=== PATIENT | female | born 1935 | race Caucasian/White ===

== ENCOUNTER → 2018-08-24 | Outpatient (CLI) | payer BC ==
[~2018-08-24] MED LIST: BUPIVACAINE MPF 0.5% 10 ML VIAL for KCIC. IM ONE; CONTRAST GIVEN. MC PRN; FURO40TA4 PO; IOHEXOL 300 MG/ML 50 ML VIAL. INT ART ONE; LIDOCAINE 1% Multi-Dose 20 ML VIAL. ID ONE; LOSA1TAB25 PO; methylPREDNISolone ACETATE 40 MG/ML VIAL. INT ART ONE
--- NOTE | 2018-08-24 16:15 | KCIC ---
PROCEDURE Therapeutic right hip injection using fluoroscopic guidance. HISTORY Hip pain. TECHNIQUE The procedure was explained to the patient as were potential risks, including infection, bleeding or allergic reaction. All questions were answered. Informed written and verbal consent was obtained. The hip was prepped and draped in the usual sterile manner. Following administration of local anesthetic, a 22-gauge spinal needle was advanced into the hip joint without difficulty, with care taken to avoid the vascular structures. Stylet was removed and following negative aspiration, a mixture of 4 cc Omnipaque-300, 2 cc (80 mg) Depo-Medrol, 4 cc bupivacaine and 4 cc 1% lidocaine were injected without difficulty. Fluoroscopy demonstrates uniform and satisfactory distribution of the injection through the hip. The needle was removed. There was good hemostasis at the injection site. The patient left in stable condition without immediate complication. Patient was advised as to potential postprocedural complications and advised to contact their physician or the emergency room in such event. A single spot image was obtained. Note that the right hip joint communicates with the iliopsoas bursa which opacifies with the injected mixture during injection. FLUOROSCOPY TIME: 15 seconds Electronically signed by: Kashmir Chin MD (08/24/2018 4:11 PM) [facility]
== END | disposition home or self-care (01) ==
LOC: KCIC 14:45
PROVIDERS: ATTEND Orthopaedic Surgery Sports Medicine
DX: M16.0 Bilateral primary osteoarthritis of hip (principal)
CPT/HCPCS: 20610; 77002; J1030; Q9967

== ENCOUNTER → 2018-10-18 | Outpatient (CLI) | payer BC ==
[~2018-10-18] MED LIST changes: +ASPI81TA50 PO; -BUPIVACAINE MPF 0.5% 10 ML VIAL for KCIC. IM ONE; +CALC500T54 PO; +CHOL200074 PO; -CONTRAST GIVEN. MC PRN; +CYAN500T17 PO; +IOHEXOL 180 MG/ML 10 ML VIAL. ONE; -IOHEXOL 300 MG/ML 50 ML VIAL. INT ART ONE; -LIDOCAINE 1% Multi-Dose 20 ML VIAL. ID ONE; +LIDOCAINE/PRILOCAINE TOPICAL CREAM 5GM TUBE. TP ONE; +MELO15TA23 PO; +OMEG1CAP6 PO; +POTA10TA12 PO; +TRAM50TA PO; -methylPREDNISolone ACETATE 40 MG/ML VIAL. INT ART ONE; +methylPREDNISolone ACETATE 40 MG/ML VIAL. ONE; +methylPREDNISolone ACETATE 80 MG/ML VIAL. ONE
--- NOTE | 2018-10-18 19:09 | PAIN ---
DATE OF SERVICE: 10/18/2018 INITIAL CONSULTATION FOR PAIN CLINIC CHIEF COMPLAINT: Low back and right lower extremity pain. HISTORY OF PRESENT ILLNESS: This is an 83-year-old female who presents with history of pain for about a year in the low back and right lower extremity, radiating mostly in the posterior lateral aspect of the thigh across the low back into the anterior medial aspect of the thigh and into the right lower leg. The patient has had some history of arthritis in her hip and thought that this was what which was coming from. So, she had a hip injection with her physician and helped the pain for a very short period of time, but not the pain radiating to the lower leg. The patient reports it is across the low back now as well, intermittent in intensity, changes during the day, aching and sharp, shooting and radiating to the right leg as described. The patient reports no loss of motor function with significant fatigability with right leg with walking and standing. The patient reports it is awakening her from sleep at night at least 2-3 times. Does not affect her bowel or bladder control, but does affect her ability to walk significantly. She is not using any assistive devices, however. She has had some physical therapy in the past, nothing recently, also some massage therapy and chiropractic therapy, which she reports good the day she was there, but not afterwards. She has tried meloxicam as well as tramadol, both of which do decrease the pain, but she takes the meloxicam daily, but the tramadol only when needed. The patient reports she has not had any in the last several days of the tramadol. The patient did have MRI scan of the lumbar spine showing severe degenerative disk disease at L5-S1, bilateral pars interarticularis defect at L5. L4-L5 showed generalized disk bulge, asymmetric to the right along with moderate right facet arthropathy contributing to mild to moderate right-sided neural foraminal stenosis at this level. L3-L4 shows severe degenerative disk disease as well, more profound on the left side with generalized posterior disk osteophyte complex contributing to moderate bilateral neural foraminal stenosis. The L2-L3 shows degenerative disk disease on the left again with moderate neural foraminal stenosis at that level on the left. The patient rates her disability rate from 0-10, 10 being the worst, is a 7 with family and home responsibilities, 6 with recreation, 4 with social activity and occupation, 0 with sexual behavior, 5 with self-care and 3 with life support activities. The patient reports no loss of motor function with significant fatigability of the right lower extremity with walking and ambulation. PAST MEDICAL HISTORY: Significant for hypertension, CPAP for sleep apnea, arthritis. PREVIOUS SURGERY: Include cataract extractions, hysterectomy and cholecystectomy. CURRENT MEDICATIONS: Well documented on the patient's chart. ALLERGIES: The patient has no known drug allergies. FAMILY HISTORY: Significant for heart disease and cancer. SOCIAL HISTORY: The patient does not drink alcohol, does not smoke. Does not use any illegal, illicit or recreational drugs. She is single, lives locally in [place], [place]. Reports that she is currently retired. REVIEW OF SYSTEMS: Positive for those items mentioned in history of present illness. All systems were reviewed, otherwise negative. It is complete, full and well documented on the patient's chart. PHYSICAL EXAMINATION: VITAL SIGNS: The patient's blood pressure is 180/106, pulse 87, respirations 18, temperature 98.0 degrees Fahrenheit, height is 5 feet 3 inches, weight 180 pounds. GENERAL: The patient is awake, alert, oriented, appropriate, very pleasant demeanor. HEENT: Shows normocephalic, atraumatic. Extraocular movements are intact and symmetrical. Oral cavity: Mucous membranes moist and pink. Dentition is intact. NECK: Shows anterior throat supple without palpable lymphadenopathy noted. Swallow reflex is symmetrical. CHEST: Shows normal on inspection. Breath sounds are clear to auscultation bilaterally. HEART: Shows S1, S2 clear. No murmurs auscultated. ABDOMEN: Soft, nontender, nondistended. No palpable organomegaly is noted. No rebound or guarding demonstrated. BACK: Shows spine grossly in the midline. Slight exaggeration of thoracic kyphosis and minor flattening of lumbar lordotic curvature. Lumbar paraspinous muscle shows symmetrical with inspection. On palpation, shows some mild tenderness in the middle and lower distribution of paraspinous muscles, but only diffusely without radiation, without trigger points. No tenderness over the spinous processes, sacrum or sacroiliac regions. The patient has good rotational motion of lumbar spine, both laterally greater than 10 degrees right and left as well as extension greater than 10 degrees, forward flexion 45 degrees without significant pain reported. EXTREMITIES: The patient's lower extremities show deep tendon reflexes at 1+ in the patellar and tendo calcaneus tendons. Motor exam is approximately 4 on a scale of 5 on the right and 5/5 on the left with dorsiflexion, extension, quadriceps and hamstring flexion. The patient does have mild positive straight leg raise on the right at about 45 degrees, decreased with knee flexion. Left side is negative. Peripheral pulses are 1+ posterior tibia. No peripheral edema is noted. Lower extremities are warm and dry to touch, equal in color and appearance. The patient is able to stand, stand on her toes without difficulty or loss of balance, able to heel toe walk for several steps without significant difficulty or loss of balance as well. Again, not using any assistive devices with slightly favoring right lower extremity limp with her gait. SKIN: Warm and dry, good turgor. No edema. No sores, rashes or bruising. IMPRESSION: This is an 83-year-old female with: 1. About one year history of increasing pain in lower back and right lower extremity in a radicular fashion. 2. MRI scan of lumbar spine as noted. 3. Hypertension. 4. Arthritis. PLAN: Options were discussed with the patient including conservative medical management, physical therapy, and interventional technique. He elected to proceed with interventional techniques. We discussed a lumbar epidural steroid injection using description as well as anatomic models to describe the procedure. Risks were then discussed including, but not limited to bleeding, infection, possibility of epidural hematoma, subsequent neurologic compromise, dural puncture, headaches, spinal cord and/or nerve damage, side effects of steroid medication and poor results regarding pain control. The patient understands and wished to proceed. The patient will return to the clinic in approximately 2 weeks for followup, was counseled on return appointment, activity level, and side effects to be aware of. DIAGNOSES: Lumbar radiculopathy with lumbar spinal stenosis, lumbar degenerative disk disease. PROCEDURE: Lumbar epidural steroid injection translaminar approach at L4-L5 level using C-arm fluoroscopic guidance under sterile prep and drape using local anesthetic. MEDICATION INJECTED: A total of 120 mg Depo-Medrol plus 10 mL of preservative-free normal saline and 2 mL of Isovue for contrast. CONDITION AT DISCHARGE: Stable. The patient tolerated the procedure well, had no complications. SIERRA SALMON MD DR: CHASE/ruiz JOB#: [id number] / [id number] YOUSIF Tesfaye MD
== END | disposition home or self-care (01) ==
LOC: PNCL 09:29
PROVIDERS: ATTEND Anesthesiology
DX: M51.16 Intervertebral disc disorders with radiculopathy, lumbar region (principal); M48.061 Spinal stenosis, lumbar region without neurogenic claudication; M16.0 Bilateral primary osteoarthritis of hip; I10 Essential (primary) hypertension; Z90.710 Acquired absence of both cervix and uterus; Z90.49 Acquired absence of other specified parts of digestive tract; Z79.82 Long term (current) use of aspirin; Z79.899 Other long term (current) drug therapy
CPT/HCPCS: 62323; J1030; J1040; Q9965

== ENCOUNTER → 2018-11-08 | Outpatient (CLI) | payer BC ==
[~2018-11-08] MED LIST changes: -LIDOCAINE/PRILOCAINE TOPICAL CREAM 5GM TUBE. TP ONE
--- NOTE | 2018-11-08 11:10 | PAIN ---
DATE OF SERVICE: 11/08/2018 PROGRESS NOTE FOR PAIN CLINIC DIAGNOSES: Lumbar radiculopathy with lumbar degenerative disk disease and lumbar spinal stenosis. HISTORY OF PRESENT ILLNESS: The patient is an 83-year-old female who returns for followup status post lumbar epidural steroid injection x 1. The patient reports about 70% improvement, did very well with her right leg, doing much better. The patient still has pain across the low back, a little more on the right side but the leg is doing much better. The patient reports aching pain in the low back that is tight and shooting at times, some in the right posterior gluteus, lateral thigh but mostly in the back. The patient reports it is a 4 on a scale of 10 at its worst, 3 on average, 3 at its least on a scale of 10 and is 3 today. The patient reports she has been sleeping well at night, has been increasing activity with greater ease and comfort, walking greater distances, able to do household activities as well as traveling and recreational activities with much greater ease and comfort. The patient reports the pain has been building up over the past few days where she is feeling it more noticeably in the low back itself but not nearly to the level it was previously. The patient reports no new motor or sensory deficits and no new bowel or bladder incontinence or other complaints. PHYSICAL EXAMINATION: VITAL SIGNS: The patient's blood pressure is 186/112, pulse 87, respirations 18 and temperature is 98.2 degrees Fahrenheit. Height is 5 feet 3 inches and weighs 183 pounds. GENERAL: The patient is awake, alert, oriented, appropriate and very pleasant demeanor. HEENT: Head shows normocephalic and atraumatic. Extraocular movements are intact and symmetrical. Oral cavity: Mucous membranes moist and pink. Dentition is intact. NECK: Shows anterior throat supple without palpable lymphadenopathy noted. Swallow reflex is symmetrical. CHEST: Shows normal with inspection. Breath sounds clear to auscultation bilaterally. HEART: Shows S1 and S2 clear. No murmurs auscultated. ABDOMEN: Obese, soft, nontender and nondistended. No palpable organomegaly is noted. No rebound or guarding demonstrated. BACK: Shows spine grossly in the midline. Slight exaggeration of the thoracic kyphosis and some minor flattening of the lumbar lordotic curvature. Lumbar paraspinous muscle shows symmetrical on inspection, on palpation shows some moderate tenderness diffusely bilaterally but only diffusely without radiation. The patient has good rotational motion of the lumbar spine, both laterally as well as extension and flexion without difficulty. EXTREMITIES: Lower extremities show deep tendon reflexes at 1+ in the patellar and tendo-calcaneus tendons. Motor exam is approximately 4 on a scale of 5 with right dorsiflexion and extension, 5/5 on the left but intact bilaterally. Peripheral pulses are 1+ posterior tibial. No peripheral edema is noted. Options were discussed with the patient. The patient's old chart was reviewed as well as her current medication regimen updated. Current review of systems updated today as well. We will proceed with a second in a series of lumbar epidural steroid injection today with fluoroscopic guidance. Risks were again discussed including, but not limited to bleeding, infection, possibility of epidural hematoma, subsequent neurologic compromise, dural puncture, headaches, spinal cord and/or nerve damage, side effects of steroid medication and poor results regarding pain control. The patient understands and wished to proceed. The patient will return to the clinic in approximately 2 weeks for followup, was counseled as to return appointment, activity level and side effects to be aware of. DIAGNOSES: Lumbar radiculopathy with lumbar spinal stenosis and lumbar degenerative disk disease. PROCEDURE: Lumbar epidural steroid injection, translaminar approach, L4-L5 level using C-arm fluoroscopic guidance under sterile prep and drape using local anesthetic. MEDICATION INJECTED: A total of 120 mg Depo-Medrol plus 10 mL of preservative-free normal saline and 2 mL of Isovue for contrast. CONDITION AT DISCHARGE: Stable. The patient tolerated the procedure well and had no complications. SIERRA SALMON MD DR: CHASE/ruiz JOB#: [id number] / [id number]
== END | disposition home or self-care (01) ==
LOC: PNCL 09:52
PROVIDERS: ATTEND Anesthesiology
DX: M51.16 Intervertebral disc disorders with radiculopathy, lumbar region (principal); M48.061 Spinal stenosis, lumbar region without neurogenic claudication
CPT/HCPCS: 62323; J1030; J1040; Q9965

== ENCOUNTER → 2019-01-18 | Outpatient (CLI) | payer BC, OTHER ==
[~2019-01-18] MED LIST changes: +BUPIVACAINE MPF 0.5% 10 ML VIAL for KCIC. IM ONE; -IOHEXOL 180 MG/ML 10 ML VIAL. ONE; +IOHEXOL 300 MG/ML 50 ML VIAL. INT ART ONE; +LIDOCAINE 1% Multi-Dose 20 ML VIAL. ID ONE; +methylPREDNISolone ACETATE 40 MG/ML VIAL. INT ART ONE; -methylPREDNISolone ACETATE 40 MG/ML VIAL. ONE; -methylPREDNISolone ACETATE 80 MG/ML VIAL. ONE
--- NOTE | 2019-01-18 15:47 | KCIC ---
Examination: Fluoro Guided Therapeutic injection bilateral hip. History: Bilateral hip pain Comparison: None available FINDINGS: Relative benefits risks and alternatives to the procedure were discussed and verbal and written informed consent was obtained. The patient was carefully prepped and draped in a sterile fashion. Lidocaine was used for local anesthesia. A 22-gauge spinal needle was advanced to the level of the hip joint at the femoral neck. 4 cc of bupivacaine, 4 cc of Omnipaque 300, 4 cc of lidocaine and 80 mg of Depo-Medrol was given into each of the right and left hip joints. Total fluoroscopic time in the right hip is 14 seconds and on the left hip is 19 seconds Total fluoroscopic image is 2. IMPRESSION: Successful fluoroscopic guided steroid injection into the right and left hip joint. Electronically signed by: Maxime Solorio MD (01/18/2019 3:44 PM) [facility]
== END | disposition home or self-care (01) ==
LOC: KCIC 13:20
PROVIDERS: ATTEND Orthopaedic Surgery Sports Medicine
DX: M16.0 Bilateral primary osteoarthritis of hip (principal); M51.16 Intervertebral disc disorders with radiculopathy, lumbar region; I10 Essential (primary) hypertension; Z79.82 Long term (current) use of aspirin
CPT/HCPCS: 20610; 77002; J1030; Q9967; 20605

== ENCOUNTER 2019-08-19 19:22 | Inpatient (IN) | payer MEDICARE, OTHER ==
[~2019-08-19] VITALS: Ht 157.5 cm; Wt 82.6 kg
[~2019-08-19 19:22] MED LIST changes: -BUPIVACAINE MPF 0.5% 10 ML VIAL for KCIC. IM ONE; -IOHEXOL 300 MG/ML 50 ML VIAL. INT ART ONE; -LIDOCAINE 1% Multi-Dose 20 ML VIAL. ID ONE; -methylPREDNISolone ACETATE 40 MG/ML VIAL. INT ART ONE
[2019-08-19 20:14] LABS: BASO % 1 % (0-3); EOS # 0.2 x10^3/uL (0.0-0.7); EOS % 2 % (0-3); HEMATOCRIT 38.3 % (36.0-47.0); HEMOGLOBIN 12.8 g/dL (12.0-15.5); LYMPH # 2.4 x10^3/uL (1.0-4.8); LYMPH % 29 % (24-48); MEAN CORPUSCULAR HEMOGLOBIN 30 pg (25-35); MEAN CORPUSCULAR HGB CONC 33 g/dL (31-37); MEAN CORPUSCULAR VOLUME 89 fL (79-100); MONO # 0.6 x10^3/uL (0.0-1.1); MONO % 7 % (0-9); NEUT # 5.1 x10^3/uL (1.8-7.7); NEUT % 62 % (31-73); PLATELET COUNT 337 x10^3/uL (140-400); RED CELL DISTRIBUTION WIDTH 14.9 % (11.5-14.5); WHITE BLOOD COUNT 8.4 x10^3/uL (4.0-11.0)
[2019-08-19 20:16] LABS: CALCIUM 9.7 mg/dL (8.5-10.1); CREATININE 0.9 mg/dL (0.6-1.0); GFR 59.5; POTASSIUM 3.8 mmol/L (3.5-5.1)
[2019-08-19 20:21] LABS: PROTHROMBIN TIME PATIENT 13.2 SEC (11.7-14.0)
[2019-08-19 20:22] LABS: ALBUMIN 3.8 g/dL (3.4-5.0); ALBUMIN/GLOBULIN RATIO 1.1 (1.0-1.7); TOTAL BILIRUBIN 0.3 mg/dL (0.2-1.0); TOTAL PROTEIN 7.3 g/dL (6.4-8.2)
[2019-08-19 20:49] LABS: BILIRUBIN,URINE NEGATIVE (NEG); CLARITY,URINE CLEAR; COLOR,URINE YELLOW; NITRITE,URINE NEGATIVE (NEG); PROTEIN,URINE NEGATIVE (NEG-TRACE); UROBILINOGEN,URINE 0.2 mg/dL (0.2 mg/dL)
[2019-08-19 20:54] LABS: BACTERIA,URINE MODERATE /HPF (0-FEW); RBC,URINE OCC /HPF (0-2); SQUAMOUS EPITHELIAL CELL,UR MOD /LPF; WBC,URINE TNTC /HPF (0-4)
[2019-08-19] MEDS ORDERED: ONDANSETRON PF 4 MG/2 ML VIAL. IV PRN ×2 (21:15→23:00)
[2019-08-19] MEDS ORDERED: ACETAMINOPHEN 325 MG TABLET. PO PRN ×2 (21:15→23:00)
--- NOTE | 2019-08-19 21:15 | PHYS DOC ---
Past Medical History Past Medical History: Arthritis, Hypertension Past Surgical History: Hysterectomy, Other Additional Past Surgical Histo: PROLAPSED BOWEL Alcohol Use: None Drug Use: None Adult General Chief Complaint Chief Complaint: BLOODY STOOL HPI HPI 84-year-old female who is in relatively good health presents with rectal bleeding tonight. She states at approximately 7 PM she felt like she needed to have a diarrhea stool and when she went to the bathroom she poured a large amount of bright red blood into the commode. She has had rectal prolapse surgery in the past. She denies any pain. She denies he fever chills or sweats. She denies any dysuria or gross hematuria. She has not had any nausea or vomiting.[] Review of Systems Review of Systems Constitutional: Denies fever or chills [] Eyes: Denies change in visual acuity, redness, or eye pain [] HENT: Denies nasal congestion or sore throat [] Respiratory: Denies cough or shortness of breath [] Cardiovascular: No additional information not addressed in HPI [] GI: Per history of present illness[] : Denies dysuria or hematuria [] Musculoskeletal: Denies back pain or joint pain [] Integument: Denies rash or skin lesions [] Neurologic: Denies headache, focal weakness or sensory changes [] Endocrine: Denies polyuria or polydipsia [] All other systems were reviewed and found to be within normal limits, except as documented in this note. Current Medications Current Medications Current Medications Medications (Trade) Dose Ordered Sig/Bertha Start Time Stop Time Status Last Admin Dose Admin Acetaminophen (Tylenol) 650 mg PRN Q4HRS PRN 08/19/19 21:15 08/20/19 21:14 UNV Ceftriaxone Sodium (Rocephin) 1 gm 1X ONCE 08/19/19 21:30 08/19/19 21:31 Ondansetron HCl (Zofran) 4 mg PRN Q8HRS PRN 08/19/19 21:15 08/20/19 21:14 UNV Sodium Chloride 1,000 ml @ 125 mls/hr Q8H 08/19/19 21:08 08/20/19 21:07 UNV Allergies Allergies Allergies Coded Allergies Type Severity Reaction Last Updated Verified No Known Drug Allergies 08/24/18 No Physical Exam Physical Exam Constitutional: Well developed, well nourished, no acute distress, non-toxic appearance. [] HENT: Normocephalic, atraumatic, bilateral external ears normal, oropharynx moist, no oral exudates, nose normal. [] Eyes: PERRLA, EOMI, conjunctiva normal, no discharge. [] Neck: Normal range of motion, no tenderness, supple, no stridor. [] Cardiovascular:Heart rate regular rhythm, no murmur [] Lungs & Thorax: Bilateral breath sounds clear to auscultation [] Abdomen: Bowel sounds normal, soft, no tenderness, no masses, no pulsatile masses. [] Rectal: She does have an external hemorrhoid that appears to be oozing blood however she does have bright red blood in her rectal vault as well Skin: Warm, dry, no erythema, no rash. [] Back: No tenderness, no CVA tenderness. [] Extremities: No tenderness, no cyanosis, no clubbing, ROM intact, no edema. [] Neurologic: Alert and oriented X 3, normal motor function, normal sensory function, no focal deficits noted. [] Psychologic: Anxious. [] Current Patient Data Vital Signs Vital Signs Date Time Temp Pulse Resp B/P (MAP) Pulse Ox O2 Delivery O2 Flow Rate FiO2 08/19/19 19:25 98.0 112 24 216/98 (137) 96 Room Air 98.0 Lab Values Laboratory Tests Test 08/19/19 19:50 08/19/19 20:40 White Blood Count 8.4 x10^3/uL (4.0-11.0) Red Blood Count 4.30 x10^6/uL (3.50-5.40) Hemoglobin 12.8 g/dL (12.0-15.5) Hematocrit 38.3 % (36.0-47.0) Mean Corpuscular Volume 89 fL (79-100) Mean Corpuscular Hemoglobin 30 pg (25-35) Mean Corpuscular Hemoglobin Concent 33 g/dL (31-37) Red Cell Distribution Width 14.9 % (11.5-14.5) H Platelet Count 337 x10^3/uL (140-400) Neutrophils (%) (Auto) 62 % (31-73) Lymphocytes (%) (Auto) 29 % (24-48) Monocytes (%) (Auto) 7 % (0-9) Eosinophils (%) (Auto) 2 % (0-3) Basophils (%) (Auto) 1 % (0-3) Neutrophils # (Auto) 5.1 x10^3/uL (1.8-7.7) Lymphocytes # (Auto) 2.4 x10^3/uL (1.0-4.8) Monocytes # (Auto) 0.6 x10^3/uL (0.0-1.1) Eosinophils # (Auto) 0.2 x10^3/uL (0.0-0.7) Basophils # (Auto) 0.0 x10^3/uL (0.0-0.2) Prothrombin Time 13.2 SEC (11.7-14.0) Prothrombin Time INR 1.0 (0.8-1.1) Sodium Level 144 mmol/L (136-145) Potassium Level 3.8 mmol/L (3.5-5.1) Chloride Level 107 mmol/L (98-107) Carbon Dioxide Level 26 mmol/L (21-32) Anion Gap 11 (6-14) Blood Urea Nitrogen 20 mg/dL (7-20) Creatinine 0.9 mg/dL (0.6-1.0) Estimated GFR (Cockcroft-Gault) 59.5 BUN/Creatinine Ratio 22 (6-20) H Glucose Level 125 mg/dL (70-99) H Calcium Level 9.7 mg/dL (8.5-10.1) Total Bilirubin 0.3 mg/dL (0.2-1.0) Aspartate Amino Transferase (AST) 14 U/L (15-37) L Alanine Aminotransferase (ALT) 18 U/L (14-59) Alkaline Phosphatase 94 U/L (46-116) Total Protein 7.3 g/dL (6.4-8.2) Albumin 3.8 g/dL (3.4-5.0) Albumin/Globulin Ratio 1.1 (1.0-1.7) Urine Collection Type Void Urine Color Yellow Urine Clarity Clear Urine pH 6.0 Urine Specific [place] 1.020 Urine Protein Negative mg/dL (NEG-TRACE) Urine Glucose (UA) Negative mg/dL (NEG) Urine Ketones (Stick) Negative mg/dL (NEG) Urine Blood Small (NEG) Urine Nitrite Negative (NEG) Urine Bilirubin Negative (NEG) Urine Urobilinogen Dipstick 0.2 mg/dL (0.2 mg/dL) Urine Leukocyte Esterase Large (NEG) Urine RBC Occ /HPF (0-2) Urine WBC Tntc /HPF (0-4) Urine Squamous Epithelial Cells Mod /LPF Urine Transitional Epithelial Cells Occ /LPF Urine Renal Epithelial Cells Occ /LPF Urine Bacteria Moderate /HPF (0-FEW) Urine Mucus Mod /LPF Laboratory Tests 08/19/19 19:50 Laboratory Tests 08/19/19 19:50 EKG EKG [] Radiology/Procedures Radiology/Procedures [] Course & Med Decision Making Course & Med Decision Making Pertinent Labs and Imaging studies reviewed. (See chart for details) [ED course: Evaluation reveals an 84-year-old female with rectal bleeding any urinary tract infection. Given the large volume of blood in her rectal vault and her reported large volume of bleeding at home I feel it prudent to keep her in the hospital overnight for observation. Her hemoglobin and hematocrit were within normal limits here. I will go ahead and treat her urinary tract infection with IV Rocephin.] Dragon Disclaimer Dragon Disclaimer This electronic medical record was generated, in whole or in part, using a voice recognition dictation system. Departure Departure Impression: Primary Impression: Rectal bleeding Additional Impression: Urinary tract infection Disposition: ADMITTED INPATIENT Admitting Physician: WAQAS Condition: STABLE Referrals: YOUSIF BERMAN MD (PCP) Problem Qualifiers Additional Impression: Urinary tract infection Urinary tract infection type: acute cystitis Hematuria presence: without hematuria Qualified Codes: N30.00 - Acute cystitis without hematuria PROMISE LEBLANC DO Aug 19, 2019 21:15
[2019-08-19] MEDS ORDERED: cefTRIAXone IV Push 1 GM VIAL. IVP ONE (21:30)
[2019-08-19 22:30] VITALS: BP 150/82
--- NOTE | 2019-08-19 22:57 | PDOC1 ---
History and Physical Date of Admission Date of Admission DATE: 08/19/19 TIME: 22:47 Identification/Chief Complaint Chief Complaint Bright red blood per rectum Source Source: Patient History of Present Illness History of Present Illness Ms Pineda is an 84yo F w/ PMHx Osteoarthritis, Hypertension and prior rectal prolapse who p/w rectal bleeding tonight to the ED. She had an urgent BM urge at 7 PM she felt like she needed to have a diarrhea stool and when she went to the bathroom she felt a large amount of bright red blood in the toilet. She had two additional bowel movements, 1 bright red blood, and another dark tarry stool with bright red blood on wiping. ED physician noted an external hemorrhoid which I have observed as well. She denies any pain. She denies he fever chills or sweats. She denies any dysuria or gross hematuria, but does have urinary urgency. She has not had any nausea or vomiting. Historically, she has had a rectal prolapse surgery and has rare fecal incontinence and stool urgency. Hb was 12.8, mildly tachycardic. Urine with positive blood and leukocyte esterase. Was given rocephin and IVF in ED and called for admission for further workup and treatment of lower GI bleeding. Past Medical History Cardiovascular: HTN Pulmonary: No pertinent hx GI: No pertinent hx Heme/Onc: No pertinent hx Hepatobiliary: No pertinent hx Psych: No pertinent hx Rheumatologic: Other (Osteoarthritis) Infectious disease: No pertinent hx ENT: No pertinent hx Renal/: No pertinent hx Endocrine: No pertinent hx Dermatology: No pertinent hx Past Surgical History Past Surgical History: Hysterectomy, Other (Rectal prolapse surgery) Family History Family History: Hypertension Social History Smoke: No ALCOHOL: none Drugs: None Current Problem List Problem List Problems Medical Problems: (1) Rectal bleeding Status: Acute (2) Urinary tract infection Status: Acute Current Medications Current Medications Current Medications Ceftriaxone Sodium (Rocephin) 1 gm 1X ONCE IVP Last administered on 08/19/19at 21:53; Start 08/19/19 at 21:30; Stop 08/19/19 at 21:31; Status DC Ondansetron HCl (Zofran) 4 mg PRN Q8HRS PRN IV NAUSEA/VOMITING 1ST CHOICE; Start 08/19/19 at 21:15; Stop 08/20/19 at 21:14 Sodium Chloride 1,000 ml @ 125 mls/hr Q8H IV ; Start 08/19/19 at 21:30; Stop 08/20/19 at 21:29 Acetaminophen (Tylenol) 650 mg PRN Q4HRS PRN PO FEVER; Start 08/19/19 at 21:15; Stop 08/20/19 at 21:14 Fish Oil (Fish Oil) 1,000 mg DAILY PO ; Start 08/20/19 at 09:00; Status UNV Potassium Chloride (Klor-Con) 10 meq DAILY PO ; Start 08/20/19 at 09:00; Status UNV Tramadol HCl (Ultram) 50 mg Q6HRS PRN PO PAIN; Start 08/19/19 at 22:45; Status UNV Non-Formulary Medication (Calcium Carbonate (Calcium)) 500 mg DAILY PO ; Start 08/20/19 at 09:00; Status UNV Non-Formulary Medication (Cholecalciferol (Vitamin D3) (Vitamin D-3)) 2,000 unit DAILY PO ; Start 08/20/19 at 09:00; Status UNV Non-Formulary Medication (Cyanocobalamin (Vitamin B-12) (B-12)) 500 mcg DAILY PO ; Start 08/20/19 at 09:00; Status UNV Non-Formulary Medication (Losartan/ Hydrochlorothiazide (Losartan-Hctz 100-12.5 Mg Tab)) 1 tab DAILY PO ; Start 08/20/19 at 09:00; Status UNV Active Scripts Active Reported Fish Oil 1,000 Mg Capsule ([place]-3 Fatty Acids/Fish Oil) 1 Each Capsule 1 Each PO DAILY Calcium (Calcium Carbonate) 500 Mg Tab.chew 500 Mg PO DAILY Vitamin D-3 (Cholecalciferol (Vitamin D3)) 2,000 Unit Capsule 2,000 Unit PO DAILY B-12 (Cyanocobalamin (Vitamin B-12)) 500 Mcg Tablet 500 Mcg PO DAILY Tramadol Hcl 50 Mg Tablet 50 Mg PO Q6HRS PRN Meloxicam 15 Mg Tablet 1 Tab PO DAILY Aspir-Low (Aspirin) 81 Mg Tablet.dr 1 Tab PO DAILY Potassium Chloride 10 Meq Tab.sr.24h 10 Meq PO DAILY Furosemide 40 Mg Tablet 1 Tab PO DAILY Losartan-Hctz 100-12.5 Mg Tab (Losartan/Hydrochlorothiazide) 1 Each Tablet 1 Tab PO DAILY Allergies Allergies: Coded Allergies: No Known Drug Allergies (Unverified , 08/24/18) ROS General: No: Chills, Night Sweats, Fatigue, Malaise, Appetite, Other PSYCHOLOGICAL ROS: No: Anxiety, Behavioral Disorder, Concentration difficultie, Decreased libido, Depression, Disorientation, Hallucinations, Hostility, Irritablity, Memory difficulties, Mood Swings, Obsessive thoughts, Physical abuse, Sexual abuse, Sleep disturbances, Suicidal ideation, Other Eyes: No Blurry vision, No Decreased vision, No Double vision, No Dry eyes, No Excessive tearing, No Eye Pain, No Itchy Eyes, No Loss of vision, No Photophobia, No Scotomata, No Uses contacts, No Uses glasses, No Other HEENT: No: Heacaches, Visual Changes, Hearing change, Nasal congestion, Nasal discharge, Oral lesions, Sinus pain, Sore Throat, Epistaxis, Sneezing, Snoring, Tinnitus, Vertigo, Vocal changes, Other ALLERGY AND IMMUNOLOGY: No: Hives, Insect Bite Sensitivity, Itchy/Watery Eyes, Nasal Congestion, Post Nasal Drip, Seasonal Allergies, Other Hematological and Lymphatic: No: Bleeding Problems, Blood Clots, Blood Transfusions, Brusing, Night Sweats, Pallor, Swollen Lymph Nodes, Other ENDOCRINE: No: Breast Changes, Galactorrhea, Hair Pattern Changes, Hot Flashes, Malaise/lethargy, Mood Swings, Palpitations, Polydipsia/polyuria, Skin Changes, Temperature Intolerance, Unexpected Weight Changes, Other Breast: No New/Changing Breast Lumps, No Nipple changes, No Nipple discharge, No Other Respiratory: No: Cough, Hemoptysis, Orthopnea, Pleuritic Pain, Shortness of breath, SOB with excertion, Sputum Changes, Stridor, Tachypnea, Wheezing, Other Cardiovascular: No Chest Pain, No Palpitations, No Orthopnea, No Paroxysmal Noc. Dyspnea, No Edema, No Lt Headedness, No Other Gastrointestinal: Yes Diarrhea, Yes Melena, Yes Hematochezia; No Nausea, No Vomiting, No Abdominal Pain, No Constipation, No Other Genitourinary: YES Dysuria; No Frequency, No Incontinence, No Hematuria, No Retention, No Discharge, No Urgency, No Pain, No Flank Pain, No Other, No , No , No , No , No , No , No Musculoskeletal: No Gait Disturbance, No Joint Pain, No Joint Stiffness, No Darling nt Swelling, No Muscle Pain, No Muscular Weakness, No Pain In:, No Swelling In:, No Other Neurological: No Behavorial Changes, No Bowel/Bladder ControlChng, No Confusion, No Dizziness, No Gait Disturbance, No Headaches, No Impaired Co ord/balance, No Memory Loss, No Numbness/Tingling, No Seizures, No Speech Problems, No Tremors, No Visual Changes, No Weakness, No Other Skin: No Dry Skin, No Eczema, No Hair Changes, No Lumps, No Mole Changes, No Mottling, No Nail Changes, No Pruritus, No Rash, No Skin Lesion Changes, No Other, No Acne Physical Exam General: Alert, Oriented X3, Cooperative, No acute distress HEENT: Atraumatic, PERRLA, EOMI, Mucous membr. moist/pink Lungs: Clear to auscultation, Normal air movement Heart: S1S2, RRR, no gallops, no murmurs Abdomen: Normal bowel sounds, Soft, No tenderness, No hepatosplenomegaly, No masses Rectal Exam: hemorrhoids Extremities: No clubbing, No cyanosis, No edema, Normal pulses, No tend erness/swelling Skin: No rashes, No breakdown, No significant lesion Neuro: Normal gait, Normal speech, Strength at 5/5 X4 ext, Normal tone, Sensation intact, Cranial nerves 3-12 NL, Reflexes 2+ Psych/Mental Status: Mental status NL, Mood NL Vitals Vitals Vital Signs Date Time Temp Pulse Resp B/P (MAP) Pulse Ox O2 Delivery O2 Flow Rate FiO2 08/19/19 21:41 90 24 162/105 (124) 98 Room Air 08/19/19 19:25 98.0 98.0 Labs Labs Laboratory Tests Test 08/19/19 19:50 08/19/19 20:40 White Blood Count 8.4 x10^3/uL (4.0-11.0) Red Blood Count 4.30 x10^6/uL (3.50-5.40) Hemoglobin 12.8 g/dL (12.0-15.5) Hematocrit 38.3 % (36.0-47.0) Mean Corpuscular Volume 89 fL (79-100) Mean Corpuscular Hemoglobin 30 pg (25-35) Mean Corpuscular Hemoglobin Concent 33 g/dL (31-37) Red Cell Distribution Width 14.9 % (11.5-14.5) Platelet Count 337 x10^3/uL (140-400) Neutrophils (%) (Auto) 62 % (31-73) Lymphocytes (%) (Auto) 29 % (24-48) Monocytes (%) (Auto) 7 % (0-9) Eosinophils (%) (Auto) 2 % (0-3) Basophils (%) (Auto) 1 % (0-3) Neutrophils # (Auto) 5.1 x10^3/uL (1.8-7.7) Lymphocytes # (Auto) 2.4 x10^3/uL (1.0-4.8) Monocytes # (Auto) 0.6 x10^3/uL (0.0-1.1) Eosinophils # (Auto) 0.2 x10^3/uL (0.0-0.7) Basophils # (Auto) 0.0 x10^3/uL (0.0-0.2) Prothrombin Time 13.2 SEC (11.7-14.0) Prothromb Time International Ratio 1.0 (0.8-1.1) Sodium Level 144 mmol/L (136-145) Potassium Level 3.8 mmol/L (3.5-5.1) Chloride Level 107 mmol/L (98-107) Carbon Dioxide Level 26 mmol/L (21-32) Anion Gap 11 (6-14) Blood Urea Nitrogen 20 mg/dL (7-20) Creatinine 0.9 mg/dL (0.6-1.0) Estimated GFR (Cockcroft-Gault) 59.5 BUN/Creatinine Ratio 22 (6-20) Glucose Level 125 mg/dL (70-99) Calcium Level 9.7 mg/dL (8.5-10.1) Total Bilirubin 0.3 mg/dL (0.2-1.0) Aspartate Amino Transf (AST/SGOT) 14 U/L (15-37) Alanine Aminotransferase (ALT/SGPT) 18 U/L (14-59) Alkaline Phosphatase 94 U/L (46-116) Total Protein 7.3 g/dL (6.4-8.2) Albumin 3.8 g/dL (3.4-5.0) Albumin/Globulin Ratio 1.1 (1.0-1.7) Urine Collection Type Void Urine Color Yellow Urine Clarity Clear Urine pH 6.0 Urine Specific [place] 1.020 Urine Protein Negative mg/dL (NEG-TRACE) Urine Glucose (UA) Negative mg/dL (NEG) Urine Ketones (Stick) Negative mg/dL (NEG) Urine Blood Small (NEG) Urine Nitrite Negative (NEG) Urine Bilirubin Negative (NEG) Urine Urobilinogen Dipstick 0.2 mg/dL (0.2 mg/dL) Urine Leukocyte Esterase Large (NEG) Urine RBC Occ /HPF (0-2) Urine WBC Tntc /HPF (0-4) Urine Squamous Epithelial Cells Mod /LPF Urine Transitional Epithelial Cells Occ /LPF Urine Renal Epithelial Cells Occ /LPF Urine Bacteria Moderate /HPF (0-FEW) Urine Mucus Mod /LPF Laboratory Tests Test 08/19/19 19:50 08/19/19 20:40 White Blood Count 8.4 x10^3/uL (4.0-11.0) Red Blood Count 4.30 x10^6/uL (3.50-5.40) Hemoglobin 12.8 g/dL (12.0-15.5) Hematocrit 38.3 % (36.0-47.0) Mean Corpuscular Volume 89 fL (79-100) Mean Corpuscular Hemoglobin 30 pg (25-35) Mean Corpuscular Hemoglobin Concent 33 g/dL (31-37) Red Cell Distribution Width 14.9 % (11.5-14.5) Platelet Count 337 x10^3/uL (140-400) Neutrophils (%) (Auto) 62 % (31-73) Lymphocytes (%) (Auto) 29 % (24-48) Monocytes (%) (Auto) 7 % (0-9) Eosinophils (%) (Auto) 2 % (0-3) Basophils (%) (Auto) 1 % (0-3) Neutrophils # (Auto) 5.1 x10^3/uL (1.8-7.7) Lymphocytes # (Auto) 2.4 x10^3/uL (1.0-4.8) Monocytes # (Auto) 0.6 x10^3/uL (0.0-1.1) Eosinophils # (Auto) 0.2 x10^3/uL (0.0-0.7) Basophils # (Auto) 0.0 x10^3/uL (0.0-0.2) Prothrombin Time 13.2 SEC (11.7-14.0) Prothromb Time International Ratio 1.0 (0.8-1.1) Sodium Level 144 mmol/L (136-145) Potassium Level 3.8 mmol/L (3.5-5.1) Chloride Level 107 mmol/L (98-107) Carbon Dioxide Level 26 mmol/L (21-32) Anion Gap 11 (6-14) Blood Urea Nitrogen 20 mg/dL (7-20) Creatinine 0.9 mg/dL (0.6-1.0) Estimated GFR (Cockcroft-Gault) 59.5 BUN/Creatinine Ratio 22 (6-20) Glucose Level 125 mg/dL (70-99) Calcium Level 9.7 mg/dL (8.5-10.1) Total Bilirubin 0.3 mg/dL (0.2-1.0) Aspartate Amino Transf (AST/SGOT) 14 U/L (15-37) Alanine Aminotransferase (ALT/SGPT) 18 U/L (14-59) Alkaline Phosphatase 94 U/L (46-116) Total Protein 7.3 g/dL (6.4-8.2) Albumin 3.8 g/dL (3.4-5.0) Albumin/Globulin Ratio 1.1 (1.0-1.7) Urine Collection Type Void Urine Color Yellow Urine Clarity Clear Urine pH 6.0 Urine Specific [place] 1.020 Urine Protein Negative mg/dL (NEG-TRACE) Urine Glucose (UA) Negative mg/dL (NEG) Urine Ketones (Stick) Negative mg/dL (NEG) Urine Blood Small (NEG) Urine Nitrite Negative (NEG) Urine Bilirubin Negative (NEG) Urine Urobilinogen Dipstick 0.2 mg/dL (0.2 mg/dL) Urine Leukocyte Esterase Large (NEG) Urine RBC Occ /HPF (0-2) Urine WBC Tntc /HPF (0-4) Urine Squamous Epithelial Cells Mod /LPF Urine Transitional Epithelial Cells Occ /LPF Urine Renal Epithelial Cells Occ /LPF Urine Bacteria Moderate /HPF (0-FEW) Urine Mucus Mod /LPF VTE Prophylaxis Ordered VTE Prophylaxis Devices: Yes VTE Pharmacological Prophylaxi: Contraindicated Assessment/Plan Assessment/Plan A/P: Bright red blood per rectum - painless, could be diverticular bleed vs hemorrhoids. She cannot recall last colonoscopy. NPO after midnight, consult GI and general surgery Urinary frequency - with positive leukocyte esterase she may well have a UTI, empiric rocephin HTN - will cont meds Osteoarthritis - will hold ASA and NSAIDs with her acute bleeding. Tylenol ok H/o Hysterectomy, PROLAPSED rectum surgery - general surgery to see FEN - general diet, NPO after midnight PPX - SCDs FULL CODE Dispo - inpatient for acute lower GI bleeding for further workup of bleeding JODI LLOYD MD Aug 19, 2019 22:57
[2019-08-19] MEDS ORDERED: Q10 PO (23:02)
[2019-08-19] MEDS ORDERED: LOSA100T14 PO (23:02)
[2019-08-19] MEDS ORDERED: GLUC1TAB26 PO (23:02)
[2019-08-19] MEDS ORDERED: MULT1TAB52 PO (23:02)
[2019-08-19] MEDS ORDERED: ACET325T9 PO (23:02)
[2019-08-19] MEDS ORDERED: CALC600T4 PO (23:02)
[2019-08-19] MEDS ORDERED: TIZA4TAB2 PO (23:02)
[2019-08-19] MEDS ORDERED: OMEG1CAP43 PO (23:02)
[2019-08-19] MEDS: IV NORMAL SALINE 1000ML BAG 1,000 ML IV SCH (23:10)
[2019-08-19] MEDS ORDERED: LOSARTAN POTASSIUM 50 MG TABLET. PO ONE (23:30)
[2019-08-20 03:00] VITALS: BP 138/68
[2019-08-20 04:14] LABS: BASO % 0 % (0-3); EOS # 0.2 x10^3/uL (0.0-0.7); EOS % 2 % (0-3); HEMATOCRIT 34.2 % (36.0-47.0); HEMOGLOBIN 11.4 g/dL (12.0-15.5); LYMPH # 2.5 x10^3/uL (1.0-4.8); LYMPH % 28 % (24-48); MEAN CORPUSCULAR HEMOGLOBIN 30 pg (25-35); MEAN CORPUSCULAR HGB CONC 33 g/dL (31-37); MEAN CORPUSCULAR VOLUME 89 fL (79-100); MONO # 0.8 x10^3/uL (0.0-1.1); MONO % 9 % (0-9); NEUT # 5.4 x10^3/uL (1.8-7.7); NEUT % 60 % (31-73); PLATELET COUNT 294 x10^3/uL (140-400); RED BLOOD COUNT 3.84 x10^6/uL (3.50-5.40); RED CELL DISTRIBUTION WIDTH 14.5 % (11.5-14.5)
[2019-08-20] MEDS: IV NORMAL SALINE 1000ML BAG 1,000 ML IV SCH ×2 (06:23→21:42)
[2019-08-20 07:00] VITALS: BP 147/81
[2019-08-20] MEDS: CALCIUM CARBONATE 500 MG TABLET PO SCH (08:24)
[2019-08-20] MEDS: OMEGA-3 FATTY ACIDS/FISH OIL 1,000 MG CAPSULE. PO SCH (08:24)
[2019-08-20] MEDS: CHOLECALCIFEROL (VITAMIN D3) 1,000 UNIT TABLET PO SCH (08:25)
[2019-08-20] MEDS: CYANOCOBALAMIN (VITAMIN B-12) 1,000 MCG TABLET. PO SCH (08:25)
--- NOTE | 2019-08-20 08:31 | PDOC ---
PROGRESS NOTES History of Present Illness History of Present Illness VTE Prophylaxis Ordered VTE Prophylaxis Devices: Yes VTE Pharmacological Prophylaxi: Contraindicated Assessment/Plan Assessment/Plan A/P: Bright red blood per rectum - painless, could be diverticular bleed vs hemorrhoids. hx rectal prolapse, hgb stable at 11.4 08-20 consult GI and general surgery Urinary frequency - with positive leukocyte esterase she may well have a UTI, cont rx empiric rocephin HTN - will cont meds Osteoarthritis - will hold ASA and NSAIDs with her acute bleeding. Tylenol ok H/o Hysterectomy, PROLAPSED rectum surgery - general surgery to see FEN - general diet, NPO now PPX - SCDs FULL CODE Dispo - inpatient for acute lower GI bleeding for further workup of bleeding consider ct abdomen 27 min pt exam, chart review, > 50% of time spent with exam, chart review, pt care coordination Vitals Vitals Vital Signs Date Time Temp Pulse Resp B/P (MAP) Pulse Ox O2 Delivery O2 Flow Rate FiO2 08/20/19 07:00 97.6 81 16 147/81 (103) 98 Room Air 97.6 Physical Exam General: Alert, Oriented X3, Cooperative, No acute distress Abdomen: Normal bowel sounds, Soft, No tenderness, No hepatosplenomegaly, No masses Extremities: No clubbing, No cyanosis, No edema, Normal pulses, No tenderness/swelling Skin: No rashes, No breakdown, No significant lesion Labs LABS Laboratory Tests Test 08/19/19 19:50 08/19/19 20:40 08/20/19 03:47 White Blood Count 8.4 x10^3/uL (4.0-11.0) 9.0 x10^3/uL (4.0-11.0) Red Blood Count 4.30 x10^6/uL (3.50-5.40) 3.84 x10^6/uL (3.50-5.40) Hemoglobin 12.8 g/dL (12.0-15.5) 11.4 g/dL (12.0-15.5) Hematocrit 38.3 % (36.0-47.0) 34.2 % (36.0-47.0) Mean Corpuscular Volume 89 fL (79-100) 89 fL (79-100) Mean Corpuscular Hemoglobin 30 pg (25-35) 30 pg (25-35) Mean Corpuscular Hemoglobin Concent 33 g/dL (31-37) 33 g/dL (31-37) Red Cell Distribution Width 14.9 % (11.5-14.5) 14.5 % (11.5-14.5) Platelet Count 337 x10^3/uL (140-400) 294 x10^3/uL (140-400) Neutrophils (%) (Auto) 62 % (31-73) 60 % (31-73) Lymphocytes (%) (Auto) 29 % (24-48) 28 % (24-48) Monocytes (%) (Auto) 7 % (0-9) 9 % (0-9) Eosinophils (%) (Auto) 2 % (0-3) 2 % (0-3) Basophils (%) (Auto) 1 % (0-3) 0 % (0-3) Neutrophils # (Auto) 5.1 x10^3/uL (1.8-7.7) 5.4 x10^3/uL (1.8-7.7) Lymphocytes # (Auto) 2.4 x10^3/uL (1.0-4.8) 2.5 x10^3/uL (1.0-4.8) Monocytes # (Auto) 0.6 x10^3/uL (0.0-1.1) 0.8 x10^3/uL (0.0-1.1) Eosinophils # (Auto) 0.2 x10^3/uL (0.0-0.7) 0.2 x10^3/uL (0.0-0.7) Basophils # (Auto) 0.0 x10^3/uL (0.0-0.2) 0.0 x10^3/uL (0.0-0.2) Prothrombin Time 13.2 SEC (11.7-14.0) Prothromb Time International Ratio 1.0 (0.8-1.1) Sodium Level 144 mmol/L (136-145) Potassium Level 3.8 mmol/L (3.5-5.1) Chloride Level 107 mmol/L (98-107) Carbon Dioxide Level 26 mmol/L (21-32) Anion Gap 11 (6-14) Blood Urea Nitrogen 20 mg/dL (7-20) Creatinine 0.9 mg/dL (0.6-1.0) Estimated GFR (Cockcroft-Gault) 59.5 BUN/Creatinine Ratio 22 (6-20) Glucose Level 125 mg/dL (70-99) Calcium Level 9.7 mg/dL (8.5-10.1) Total Bilirubin 0.3 mg/dL (0.2-1.0) Aspartate Amino Transf (AST/SGOT) 14 U/L (15-37) Alanine Aminotransferase (ALT/SGPT) 18 U/L (14-59) Alkaline Phosphatase 94 U/L (46-116) Total Protein 7.3 g/dL (6.4-8.2) Albumin 3.8 g/dL (3.4-5.0) Albumin/Globulin Ratio 1.1 (1.0-1.7) Urine Collection Type Void Urine Color Yellow Urine Clarity Clear Urine pH 6.0 Urine Specific [place] 1.020 Urine Protein Negative mg/dL (NEG-TRACE) Urine Glucose (UA) Negative mg/dL (NEG) Urine Ketones (Stick) Negative mg/dL (NEG) Urine Blood Small (NEG) Urine Nitrite Negative (NEG) Urine Bilirubin Negative (NEG) Urine Urobilinogen Dipstick 0.2 mg/dL (0.2 mg/dL) Urine Leukocyte Esterase Large (NEG) Urine RBC Occ /HPF (0-2) Urine WBC Tntc /HPF (0-4) Urine Squamous Epithelial Cells Mod /LPF Urine Transitional Epithelial Cells Occ /LPF Urine Renal Epithelial Cells Occ /LPF Urine Bacteria Moderate /HPF (0-FEW) Urine Mucus Mod /LPF Assessment and Plan Assessmemt and Plan Problems Medical Problems: (1) Rectal bleeding Status: Acute (2) Urinary tract infection Status: Acute Past Medical History Past Medical History Past Medical History: Arthritis, Hypertension Past Surgical History: Hysterectomy, Other Additional Past Surgical Histo: PROLAPSED BOWEL Alcohol Use: None Drug Use: None Adult General Chief Complaint Chief Complaint: BLOODY STOOL Comment Review of Relevant I have reviewed the following items rhonda (where applicable) has been applied. Labs Laboratory Tests Test 08/19/19 19:50 08/19/19 20:40 08/20/19 03:47 White Blood Count 8.4 x10^3/uL (4.0-11.0) 9.0 x10^3/uL (4.0-11.0) Red Blood Count 4.30 x10^6/uL (3.50-5.40) 3.84 x10^6/uL (3.50-5.40) Hemoglobin 12.8 g/dL (12.0-15.5) 11.4 g/dL (12.0-15.5) Hematocrit 38.3 % (36.0-47.0) 34.2 % (36.0-47.0) Mean Corpuscular Volume 89 fL (79-100) 89 fL (79-100) Mean Corpuscular Hemoglobin 30 pg (25-35) 30 pg (25-35) Mean Corpuscular Hemoglobin Concent 33 g/dL (31-37) 33 g/dL (31-37) Red Cell Distribution Width 14.9 % (11.5-14.5) 14.5 % (11.5-14.5) Platelet Count 337 x10^3/uL (140-400) 294 x10^3/uL (140-400) Neutrophils (%) (Auto) 62 % (31-73) 60 % (31-73) Lymphocytes (%) (Auto) 29 % (24-48) 28 % (24-48) Monocytes (%) (Auto) 7 % (0-9) 9 % (0-9) Eosinophils (%) (Auto) 2 % (0-3) 2 % (0-3) Basophils (%) (Auto) 1 % (0-3) 0 % (0-3) Neutrophils # (Auto) 5.1 x10^3/uL (1.8-7.7) 5.4 x10^3/uL (1.8-7.7) Lymphocytes # (Auto) 2.4 x10^3/uL (1.0-4.8) 2.5 x10^3/uL (1.0-4.8) Monocytes # (Auto) 0.6 x10^3/uL (0.0-1.1) 0.8 x10^3/uL (0.0-1.1) Eosinophils # (Auto) 0.2 x10^3/uL (0.0-0.7) 0.2 x10^3/uL (0.0-0.7) Basophils # (Auto) 0.0 x10^3/uL (0.0-0.2) 0.0 x10^3/uL (0.0-0.2) Prothrombin Time 13.2 SEC (11.7-14.0) Prothromb Time International Ratio 1.0 (0.8-1.1) Sodium Level 144 mmol/L (136-145) Potassium Level 3.8 mmol/L (3.5-5.1) Chloride Level 107 mmol/L (98-107) Carbon Dioxide Level 26 mmol/L (21-32) Anion Gap 11 (6-14) Blood Urea Nitrogen 20 mg/dL (7-20) Creatinine 0.9 mg/dL (0.6-1.0) Estimated GFR (Cockcroft-Gault) 59.5 BUN/Creatinine Ratio 22 (6-20) Glucose Level 125 mg/dL (70-99) Calcium Level 9.7 mg/dL (8.5-10.1) Total Bilirubin 0.3 mg/dL (0.2-1.0) Aspartate Amino Transf (AST/SGOT) 14 U/L (15-37) Alanine Aminotransferase (ALT/SGPT) 18 U/L (14-59) Alkaline Phosphatase 94 U/L (46-116) Total Protein 7.3 g/dL (6.4-8.2) Albumin 3.8 g/dL (3.4-5.0) Albumin/Globulin Ratio 1.1 (1.0-1.7) Urine Collection Type Void Urine Color Yellow Urine Clarity Clear Urine pH 6.0 Urine Specific [place] 1.020 Urine Protein Negative mg/dL (NEG-TRACE) Urine Glucose (UA) Negative mg/dL (NEG) Urine Ketones (Stick) Negative mg/dL (NEG) Urine Blood Small (NEG) Urine Nitrite Negative (NEG) Urine Bilirubin Negative (NEG) Urine Urobilinogen Dipstick 0.2 mg/dL (0.2 mg/dL) Urine Leukocyte Esterase Large (NEG) Urine RBC Occ /HPF (0-2) Urine WBC Tntc /HPF (0-4) Urine Squamous Epithelial Cells Mod /LPF Urine Transitional Epithelial Cells Occ /LPF Urine Renal Epithelial Cells Occ /LPF Urine Bacteria Moderate /HPF (0-FEW) Urine Mucus Mod /LPF Laboratory Tests Test 08/19/19 19:50 08/19/19 20:40 08/20/19 03:47 White Blood Count 8.4 x10^3/uL (4.0-11.0) 9.0 x10^3/uL (4.0-11.0) Red Blood Count 4.30 x10^6/uL (3.50-5.40) 3.84 x10^6/uL (3.50-5.40) Hemoglobin 12.8 g/dL (12.0-15.5) 11.4 g/dL (12.0-15.5) Hematocrit 38.3 % (36.0-47.0) 34.2 % (36.0-47.0) Mean Corpuscular Volume 89 fL (79-100) 89 fL (79-100) Mean Corpuscular Hemoglobin 30 pg (25-35) 30 pg (25-35) Mean Corpuscular Hemoglobin Concent 33 g/dL (31-37) 33 g/dL (31-37) Red Cell Distribution Width 14.9 % (11.5-14.5) 14.5 % (11.5-14.5) Platelet Count 337 x10^3/uL (140-400) 294 x10^3/uL (140-400) Neutrophils (%) (Auto) 62 % (31-73) 60 % (31-73) Lymphocytes (%) (Auto) 29 % (24-48) 28 % (24-48) Monocytes (%) (Auto) 7 % (0-9) 9 % (0-9) Eosinophils (%) (Auto) 2 % (0-3) 2 % (0-3) Basophils (%) (Auto) 1 % (0-3) 0 % (0-3) Neutrophils # (Auto) 5.1 x10^3/uL (1.8-7.7) 5.4 x10^3/uL (1.8-7.7) Lymphocytes # (Auto) 2.4 x10^3/uL (1.0-4.8) 2.5 x10^3/uL (1.0-4.8) Monocytes # (Auto) 0.6 x10^3/uL (0.0-1.1) 0.8 x10^3/uL (0.0-1.1) Eosinophils # (Auto) 0.2 x10^3/uL (0.0-0.7) 0.2 x10^3/uL (0.0-0.7) Basophils # (Auto) 0.0 x10^3/uL (0.0-0.2) 0.0 x10^3/uL (0.0-0.2) Prothrombin Time 13.2 SEC (11.7-14.0) Prothromb Time International Ratio 1.0 (0.8-1.1) Sodium Level 144 mmol/L (136-145) Potassium Level 3.8 mmol/L (3.5-5.1) Chloride Level 107 mmol/L (98-107) Carbon Dioxide Level 26 mmol/L (21-32) Anion Gap 11 (6-14) Blood Urea Nitrogen 20 mg/dL (7-20) Creatinine 0.9 mg/dL (0.6-1.0) Estimated GFR (Cockcroft-Gault) 59.5 BUN/Creatinine Ratio 22 (6-20) Glucose Level 125 mg/dL (70-99) Calcium Level 9.7 mg/dL (8.5-10.1) Total Bilirubin 0.3 mg/dL (0.2-1.0) Aspartate Amino Transf (AST/SGOT) 14 U/L (15-37) Alanine Aminotransferase (ALT/SGPT) 18 U/L (14-59) Alkaline Phosphatase 94 U/L (46-116) Total Protein 7.3 g/dL (6.4-8.2) Albumin 3.8 g/dL (3.4-5.0) Albumin/Globulin Ratio 1.1 (1.0-1.7) Urine Collection Type Void Urine Color Yellow Urine Clarity Clear Urine pH 6.0 Urine Specific [place] 1.020 Urine Protein Negative mg/dL (NEG-TRACE) Urine Glucose (UA) Negative mg/dL (NEG) Urine Ketones (Stick) Negative mg/dL (NEG) Urine Blood Small (NEG) Urine Nitrite Negative (NEG) Urine Bilirubin Negative (NEG) Urine Urobilinogen Dipstick 0.2 mg/dL (0.2 mg/dL) Urine Leukocyte Esterase Large (NEG) Urine RBC Occ /HPF (0-2) Urine WBC Tntc /HPF (0-4) Urine Squamous Epithelial Cells Mod /LPF Urine Transitional Epithelial Cells Occ /LPF Urine Renal Epithelial Cells Occ /LPF Urine Bacteria Moderate /HPF (0-FEW) Urine Mucus Mod /LPF Medications Current Medications Ceftriaxone Sodium (Rocephin) 1 gm 1X ONCE IVP Last administered on 08/19/19at 21:53; Start 08/19/19 at 21:30; Stop 08/19/19 at 21:31; Status DC Ondansetron HCl (Zofran) 4 mg PRN Q8HRS PRN IV NAUSEA/VOMITING 1ST CHOICE; Start 08/19/19 at 21:15; Stop 08/19/19 at 22:58; Status DC Sodium Chloride 1,000 ml @ 125 mls/hr Q8H IV Last administered on 08/20/19at 06:23; Start 08/19/19 at 21:30; Stop 08/20/19 at 21:29 Acetaminophen (Tylenol) 650 mg PRN Q4HRS PRN PO FEVER; Start 08/19/19 at 21:15; Stop 08/19/19 at 23:03; Status DC Fish Oil (Fish Oil) 1,000 mg DAILY PO ; Start 08/20/19 at 09:00 Potassium Chloride (Klor-Con) 10 meq DAILY PO ; Start 08/20/19 at 09:00 Tramadol HCl (Ultram) 50 mg PRN Q6HRS PRN PO MODERATE PAIN 4-6; Start 08/19/19 at 22:45 Calcium Carbonate/ Glycine (Oscal) 500 mg DAILY PO ; Start 08/20/19 at 09:00 Vitamin D (Vitamin D3) 2,000 unit DAILY PO ; Start 08/20/19 at 09:00 Cyanocobalamin (Vitamin B-12) 500 mcg DAILY PO ; Start 08/20/19 at 09:00 Losartan Potassium (Cozaar) 100 mg DAILY PO ; Start 08/20/19 at 09:00 Ceftriaxone Sodium (Rocephin) 1 gm Q24H IVP ; Start 08/20/19 at 22:00 Hydrochlorothiazide (Microzide) 12.5 mg DAILY PO ; Start 08/20/19 at 09:00 Ondansetron HCl (Zofran) 4 mg PRN Q6HRS PRN IV NAUSEA/VOMITING 1ST CHOICE; Start 08/19/19 at 23:00 Acetaminophen (Tylenol) 650 mg PRN Q6HRS PRN PO MILD PAIN / TEMP; Start 08/19/19 at 23:00 Losartan Potassium (Cozaar) 100 mg 1X ONCE PO Last administered on 08/19/19at 23:27; Start 08/19/19 at 23:30; Stop 08/19/19 at 23:31; Status DC Active Scripts Active Reported Losartan Potassium 100 Mg Tablet 100 Mg PO HS PRN [Q10] 1 Cap PO DAILY Multivitamins (Multivitamin) 1 Each Tablet 1 Tab PO DAILY Tylenol (Acetaminophen) 325 Mg Tablet 650 Mg PO Q6HRS Nwjsbalszf-Sogryaeclpz-Jde Tab (Gluc/Jameson-Msm#2/C/D3/Rhys/Born) 1 Each Tablet 1 Each PO BID Calcium (Calcium Carbonate) 600 Mg Tablet 600 Mg PO DAILY Tizanidine Hcl 4 Mg Tablet 1 Tab PO QHS Fish Oil 1,400 Mg Softgel ([place]-3/Dha/Epa/Fish Oil) 1 Each Capsule.dr 1 Each PO DAILY Vitamin D-3 (Cholecalciferol (Vitamin D3)) 2,000 Unit Capsule 2,000 Unit PO DAILY B-12 (Cyanocobalamin (Vitamin B-12)) 500 Mcg Tablet 1,000 Mcg PO DAILY Tramadol Hcl 50 Mg Tablet 50 Mg PO Q6HRS PRN Meloxicam 15 Mg Tablet 0.5 Tab PO DAILY Aspir-Low (Aspirin) 81 Mg Tablet.dr 1 Tab PO HS Potassium Chloride 10 Meq Tab.sr.24h 10 Meq PO DAILY Furosemide 40 Mg Tablet 1 Tab PO DAILY Vitals/I & O Vital Sign - Last 24 Hours 08/19/19 08/19/19 08/19/19 08/19/19 19:25 19:28 19:34 19:53 Temp 98.0 98.0 Pulse 112 89 104 90 Resp 24 24 24 24 B/P (MAP) 216/98 (137) 216/98 (137) 215/119 (151) 193/92 (125) Pulse Ox 96 96 97 95 O2 Delivery Room Air Room Air Room Air Room Air 08/19/19 08/19/19 08/19/19 08/19/19 19:58 20:41 21:41 22:30 Temp 97.9 97.9 Pulse 102 70 90 92 Resp 24 24 24 18 B/P (MAP) 180/82 (114) 198/91 (126) 162/105 (124) 150/82 (104) Pulse Ox 97 95 98 95 O2 Delivery Room Air Room Air Room Air 08/19/19 08/20/19 08/20/19 23:27 03:00 07:00 Temp 97.9 97.6 97.9 97.6 Pulse 90 69 81 Resp 16 16 B/P (MAP) 162/105 138/68 (91) 147/81 (103) Pulse Ox 98 98 O2 Delivery Room Air Intake and Output 08/19/19 08/19/19 08/20/19 15:00 23:00 07:00 Intake Total 240 ml Balance 240 ml ZOE REYNOLDS MD Aug 20, 2019 08:31
[2019-08-20] MEDS ORDERED: hydroCHLOROthiazide 12.5 MG CAPSULE PO SCH (09:00)
--- NOTE | 2019-08-20 09:24 | PDOC2 ---
GI CONSULT Reason For Consult: Rectal bleed HPI: HPI: Pleasant 84 y/o female admitted through ER. Yesterday felt the urge to stool but instead passed "red and black blood with clots" - unclear if any associated stool. Has occurred 4-5 times since - nurse reports a small dark red clot this morning. No n/v, abd pain, dizziness, or sweating. ER and H&P notes indicate external hemorrhoids. Hgb 12.8 to 11.4, normal BUN. Vitals stable - actually hypertensive. Rare indigestion improved w/ an OTC medication PRN. Even less frequent dysphagia with dry foods. No issues w/ chronic bleeding. Good/stable appetite, no weight loss. Stools are "mostly on the thin side" - can have several daily (especially if she goes out to eat and then goes walking). EGD and colonoscopy in 1999 (Dr. Perez): H. pylori negative gastritis, normal random esophageal biopsy, diverticulosis, melanosis coli, rectal polyp (biopsy benign). Colonoscopy 03/2010 (Dr. Perez) for diarrhea and fecal incontinence: sessile 30mm serrated adenoma in transverse colon, descending and sigmoid diverticulosis, and Grade 1 internal hemorrhoids. Colonoscopy 05/2010 (Dr. Alicea): 8x5mm polyp in transverse colon @ tattoo site treated w/ APC, non-bleeding diverticulosis in descending and sigmoid colon, and normal rectum. Reports rectal prolapse repair ~15 years ago @ [facility] - no issues since. S/p cholecystectomy. No liver, pancreas, or PUD history. On ASA 81mg QD at home, also B12. Denies other NSAIDs but does have a prescription med for pain at home. PMH: PMH: HTN, VINICIUS, OA, cellulitis, colon polyp, diverticulosis, hemorrhoids hysterectomy w/ BSO, appendectomy, cholecystectomy, rectal prolapse repair Social History: Smoke: No ALCOHOL: none Drugs: None ROS: GEN: Denies fevers, chills, sweats HEENT: Denies blurred vision, sore throat CV: Denies chest pain RESP: Denies shortness of air, cough GI: Per HPI : Denies hematuria, dysuria ENDO: Denies weight changes NEURO: Denies confusion, dizziness MSK: +chronic leg/feet pain SKIN: Denies jaundice, pruritus Vitals: Vitals: Vital Signs Date Time Temp Pulse Resp B/P (MAP) Pulse Ox O2 Delivery O2 Flow Rate FiO2 08/20/19 07:00 97.6 81 16 147/81 (103) 98 Room Air 97.6 Labs: Labs: Laboratory Tests Test 08/19/19 19:50 08/19/19 20:40 08/20/19 03:47 White Blood Count 8.4 x10^3/uL (4.0-11.0) 9.0 x10^3/uL (4.0-11.0) Red Blood Count 4.30 x10^6/uL (3.50-5.40) 3.84 x10^6/uL (3.50-5.40) Hemoglobin 12.8 g/dL (12.0-15.5) 11.4 g/dL (12.0-15.5) Hematocrit 38.3 % (36.0-47.0) 34.2 % (36.0-47.0) Mean Corpuscular Volume 89 fL (79-100) 89 fL (79-100) Mean Corpuscular Hemoglobin 30 pg (25-35) 30 pg (25-35) Mean Corpuscular Hemoglobin Concent 33 g/dL (31-37) 33 g/dL (31-37) Red Cell Distribution Width 14.9 % (11.5-14.5) 14.5 % (11.5-14.5) Platelet Count 337 x10^3/uL (140-400) 294 x10^3/uL (140-400) Neutrophils (%) (Auto) 62 % (31-73) 60 % (31-73) Lymphocytes (%) (Auto) 29 % (24-48) 28 % (24-48) Monocytes (%) (Auto) 7 % (0-9) 9 % (0-9) Eosinophils (%) (Auto) 2 % (0-3) 2 % (0-3) Basophils (%) (Auto) 1 % (0-3) 0 % (0-3) Neutrophils # (Auto) 5.1 x10^3/uL (1.8-7.7) 5.4 x10^3/uL (1.8-7.7) Lymphocytes # (Auto) 2.4 x10^3/uL (1.0-4.8) 2.5 x10^3/uL (1.0-4.8) Monocytes # (Auto) 0.6 x10^3/uL (0.0-1.1) 0.8 x10^3/uL (0.0-1.1) Eosinophils # (Auto) 0.2 x10^3/uL (0.0-0.7) 0.2 x10^3/uL (0.0-0.7) Basophils # (Auto) 0.0 x10^3/uL (0.0-0.2) 0.0 x10^3/uL (0.0-0.2) Prothrombin Time 13.2 SEC (11.7-14.0) Prothromb Time International Ratio 1.0 (0.8-1.1) Sodium Level 144 mmol/L (136-145) Potassium Level 3.8 mmol/L (3.5-5.1) Chloride Level 107 mmol/L (98-107) Carbon Dioxide Level 26 mmol/L (21-32) Anion Gap 11 (6-14) Blood Urea Nitrogen 20 mg/dL (7-20) Creatinine 0.9 mg/dL (0.6-1.0) Estimated GFR (Cockcroft-Gault) 59.5 BUN/Creatinine Ratio 22 (6-20) Glucose Level 125 mg/dL (70-99) Calcium Level 9.7 mg/dL (8.5-10.1) Total Bilirubin 0.3 mg/dL (0.2-1.0) Aspartate Amino Transf (AST/SGOT) 14 U/L (15-37) Alanine Aminotransferase (ALT/SGPT) 18 U/L (14-59) Alkaline Phosphatase 94 U/L (46-116) Total Protein 7.3 g/dL (6.4-8.2) Albumin 3.8 g/dL (3.4-5.0) Albumin/Globulin Ratio 1.1 (1.0-1.7) Urine Collection Type Void Urine Color Yellow Urine Clarity Clear Urine pH 6.0 Urine Specific [place] 1.020 Urine Protein Negative mg/dL (NEG-TRACE) Urine Glucose (UA) Negative mg/dL (NEG) Urine Ketones (Stick) Negative mg/dL (NEG) Urine Blood Small (NEG) Urine Nitrite Negative (NEG) Urine Bilirubin Negative (NEG) Urine Urobilinogen Dipstick 0.2 mg/dL (0.2 mg/dL) Urine Leukocyte Esterase Large (NEG) Urine RBC Occ /HPF (0-2) Urine WBC Tntc /HPF (0-4) Urine Squamous Epithelial Cells Mod /LPF Urine Transitional Epithelial Cells Occ /LPF Urine Renal Epithelial Cells Occ /LPF Urine Bacteria Moderate /HPF (0-FEW) Urine Mucus Mod /LPF Allergies: Coded Allergies: No Known Drug Allergies (Unverified , 08/24/18) Medications: Current Medications Medications (Trade) Dose Ordered Sig/Bertha Route PRN Reason Start Time Stop Time Status Last Admin Dose Admin Ceftriaxone Sodium (Rocephin) 1 gm 1X ONCE IVP 08/19/19 21:30 08/19/19 21:31 DC 08/19/19 21:53 Sodium Chloride 1,000 ml @ 125 mls/hr Q8H IV 08/19/19 21:30 08/20/19 21:29 08/20/19 06:23 Losartan Potassium (Cozaar) 100 mg 1X ONCE PO 08/19/19 23:30 08/19/19 23:31 DC 08/19/19 23:27 Imaging: Imaging: - PE: GEN: NAD - kaila gin chair HEENT: Atraumatic, PERRL LUNGS: CTAB HEART: RRR ABD: NABS, S/ND/NT EXTREMITY: No edema SKIN: No rashes, no jaundice NEURO/PSYCH: A & O 3 A/P: A/P: Hematochezia/?melena UTI CRC screen, h/o serrated adenoma - last colonoscopy w/ APC in 2009 Diverticulosis, hemorrhoids S/p cholecystectomy, h/o rectal prolapse repair -- ?diverticular bleed - additional h/o external hemorrhoids - bleeding seems to be slowing w/ stable labs/vitals. Reviewed w/ Dr. Alicea - try clears and observe for now. Empiric PPI. JOHNNY MENDEZ Aug 20, 2019 09:24
[2019-08-20] MEDS ORDERED: PANTOPRAZOLE 40 MG TABLET.DR. PO SCH (10:00)
--- NOTE | 2019-08-20 10:12 | PDOC2 ---
DUGLAS TORRES TECHNICAL SUPPORT DIRECTOR 08/20/19 1012: CONSULT Date of Consult Date of Consult DATE: 08/20/19 TIME: 10:03 Reason for Consult Reason for Consult: gi bleed Referring Physician Referring Physician: ER Identification/Chief Complaint Chief Complaint GI bleed Source Source: Chart review, Patient History of Present Illness Reason for Visit: Reports acute onset of rectal bleeding yesterday--4-5 episodes of bleeding, dark clots. Small clot today. No bleeding in past. Does have a hx of rectal prolapse repair 15 years ago. Reviewed previous colonoscopy records with GI( 8x5mm polyp in transverse colon @ tattoo site treated w/ APC, non-bleeding diverticulosis in descending and sigmoid colon, and normal rectum.)--in 2009 Denies abdominal pain, no n/v. Does have a hemorrhoid On ASA daily, meloxicam -- no other blood thinners . Past Medical History Cardiovascular: HTN Pulmonary: No pertinent hx GI: No pertinent hx Heme/Onc: No pertinent hx Hepatobiliary: No pertinent hx Psych: No pertinent hx Rheumatologic: Other (Osteoarthritis) Infectious disease: No pertinent hx ENT: No pertinent hx Renal/: No pertinent hx Endocrine: No pertinent hx Dermatology: No pertinent hx Past Surgical History Past Surgical History: Appendectomy, Cholecystectomy, Hysterectomy, Other (Rectal prolapse surgery) Family History Family History: Hypertension Social History No ALCOHOL: none Drugs: None Current Problem List Problem List Problems Medical Problems: (1) Rectal bleeding Status: Acute (2) Urinary tract infection Status: Acute Current Medications Current Medications Current Medications Ceftriaxone Sodium (Rocephin) 1 gm 1X ONCE IVP Last administered on 08/19/19at 21:53; Start 08/19/19 at 21:30; Stop 08/19/19 at 21:31; Status DC Ondansetron HCl (Zofran) 4 mg PRN Q8HRS PRN IV NAUSEA/VOMITING 1ST CHOICE; Start 08/19/19 at 21:15; Stop 08/19/19 at 22:58; Status DC Sodium Chloride 1,000 ml @ 125 mls/hr Q8H IV Last administered on 08/20/19at 06:23; Start 08/19/19 at 21:30; Stop 08/20/19 at 21:29 Acetaminophen (Tylenol) 650 mg PRN Q4HRS PRN PO FEVER; Start 08/19/19 at 21:15; Stop 08/19/19 at 23:03; Status DC Fish Oil (Fish Oil) 1,000 mg DAILY PO ; Start 08/20/19 at 09:00 Potassium Chloride (Klor-Con) 10 meq DAILY PO ; Start 08/20/19 at 09:00 Tramadol HCl (Ultram) 50 mg PRN Q6HRS PRN PO MODERATE PAIN 4-6; Start 08/19/19 at 22:45 Calcium Carbonate/ Glycine (Oscal) 500 mg DAILY PO ; Start 08/20/19 at 09:00 Vitamin D (Vitamin D3) 2,000 unit DAILY PO ; Start 08/20/19 at 09:00 Cyanocobalamin (Vitamin B-12) 500 mcg DAILY PO ; Start 08/20/19 at 09:00 Losartan Potassium (Cozaar) 100 mg DAILY PO ; Start 08/20/19 at 09:00 Ceftriaxone Sodium (Rocephin) 1 gm Q24H IVP ; Start 08/20/19 at 22:00 Hydrochlorothiazide (Microzide) 12.5 mg DAILY PO ; Start 08/20/19 at 09:00 Ondansetron HCl (Zofran) 4 mg PRN Q6HRS PRN IV NAUSEA/VOMITING 1ST CHOICE; Start 08/19/19 at 23:00 Acetaminophen (Tylenol) 650 mg PRN Q6HRS PRN PO MILD PAIN / TEMP; Start 08/19/19 at 23:00 Losartan Potassium (Cozaar) 100 mg 1X ONCE PO Last administered on 08/19/19at 23:27; Start 08/19/19 at 23:30; Stop 08/19/19 at 23:31; Status DC Pantoprazole Sodium (Protonix) 40 mg DAILYAC PO ; Start 08/20/19 at 10:00 Active Scripts Active Reported Losartan Potassium 100 Mg Tablet 100 Mg PO HS PRN [Q10] 1 Cap PO DAILY Multivitamins (Multivitamin) 1 Each Tablet 1 Tab PO DAILY Tylenol (Acetaminophen) 325 Mg Tablet 650 Mg PO Q6HRS Tlanihdfkg-Snreneagxat-Wnx Tab (Gluc/Jameson-Msm#2/C/D3/Rhys/Born) 1 Each Tablet 1 Each PO BID Calcium (Calcium Carbonate) 600 Mg Tablet 600 Mg PO DAILY Tizanidine Hcl 4 Mg Tablet 1 Tab PO QHS Fish Oil 1,400 Mg Softgel ([place]-3/Dha/Epa/Fish Oil) 1 Each Capsule.dr 1 Each PO DAILY Vitamin D-3 (Cholecalciferol (Vitamin D3)) 2,000 Unit Capsule 2,000 Unit PO DAILY B-12 (Cyanocobalamin (Vitamin B-12)) 500 Mcg Tablet 1,000 Mcg PO DAILY Tramadol Hcl 50 Mg Tablet 50 Mg PO Q6HRS PRN Meloxicam 15 Mg Tablet 0.5 Tab PO DAILY Aspir-Low (Aspirin) 81 Mg Tablet.dr 1 Tab PO HS Potassium Chloride 10 Meq Tab.sr.24h 10 Meq PO DAILY Furosemide 40 Mg Tablet 1 Tab PO DAILY Allergies Allergies: Coded Allergies: No Known Drug Allergies (Unverified , 08/24/18) ROS General: No: Chills, Other (fevers ) PSYCHOLOGICAL ROS: No: Anxiety, Depression Eyes: No Blurry vision, No Double vision HEENT: No: Heacaches, Sore Throat Hematological and Lymphatic: YES: Other (see hpi) Respiratory: No: Cough, Shortness of breath Cardiovascular: No Chest Pain, No Palpitations Gastrointestinal: Yes Hematochezia Genitourinary: No Dysuria, No Retention Musculoskeletal: No Joint Pain, No Muscle Pain Neurological: No Confusion, No Impaired Coord/balance Skin: No Pruritus, No Rash Physical Exam Physical Exam rectal exam--non bleeding hemorrhoid General: Alert, Oriented X3, Cooperative, No acute distress HEENT: PERRLA, Mucous membr. moist/pink Lungs: Clear to auscultation, Normal air movement Heart: Regular rate, Normal S1, Normal S2, No murmurs Abdomen: Soft, No tenderness Extremities: No clubbing, No cyanosis Skin: No rashes, No breakdown Neuro: Normal speech, Sensation intact Psych/Mental Status: Mental status NL, Mood NL MUSCULOSKELETAL: No deformity, No swelling Vitals VITALS Vital Signs Date Time Temp Pulse Resp B/P (MAP) Pulse Ox O2 Delivery O2 Flow Rate FiO2 08/20/19 07:00 97.6 81 16 147/81 (103) 98 Room Air 97.6 Labs Labs Laboratory Tests Test 08/19/19 19:50 08/19/19 20:40 08/20/19 03:47 White Blood Count 8.4 x10^3/uL (4.0-11.0) 9.0 x10^3/uL (4.0-11.0) Red Blood Count 4.30 x10^6/uL (3.50-5.40) 3.84 x10^6/uL (3.50-5.40) Hemoglobin 12.8 g/dL (12.0-15.5) 11.4 g/dL (12.0-15.5) Hematocrit 38.3 % (36.0-47.0) 34.2 % (36.0-47.0) Mean Corpuscular Volume 89 fL (79-100) 89 fL (79-100) Mean Corpuscular Hemoglobin 30 pg (25-35) 30 pg (25-35) Mean Corpuscular Hemoglobin Concent 33 g/dL (31-37) 33 g/dL (31-37) Red Cell Distribution Width 14.9 % (11.5-14.5) 14.5 % (11.5-14.5) Platelet Count 337 x10^3/uL (140-400) 294 x10^3/uL (140-400) Neutrophils (%) (Auto) 62 % (31-73) 60 % (31-73) Lymphocytes (%) (Auto) 29 % (24-48) 28 % (24-48) Monocytes (%) (Auto) 7 % (0-9) 9 % (0-9) Eosinophils (%) (Auto) 2 % (0-3) 2 % (0-3) Basophils (%) (Auto) 1 % (0-3) 0 % (0-3) Neutrophils # (Auto) 5.1 x10^3/uL (1.8-7.7) 5.4 x10^3/uL (1.8-7.7) Lymphocytes # (Auto) 2.4 x10^3/uL (1.0-4.8) 2.5 x10^3/uL (1.0-4.8) Monocytes # (Auto) 0.6 x10^3/uL (0.0-1.1) 0.8 x10^3/uL (0.0-1.1) Eosinophils # (Auto) 0.2 x10^3/uL (0.0-0.7) 0.2 x10^3/uL (0.0-0.7) Basophils # (Auto) 0.0 x10^3/uL (0.0-0.2) 0.0 x10^3/uL (0.0-0.2) Prothrombin Time 13.2 SEC (11.7-14.0) Prothromb Time International Ratio 1.0 (0.8-1.1) Sodium Level 144 mmol/L (136-145) Potassium Level 3.8 mmol/L (3.5-5.1) Chloride Level 107 mmol/L (98-107) Carbon Dioxide Level 26 mmol/L (21-32) Anion Gap 11 (6-14) Blood Urea Nitrogen 20 mg/dL (7-20) Creatinine 0.9 mg/dL (0.6-1.0) Estimated GFR (Cockcroft-Gault) 59.5 BUN/Creatinine Ratio 22 (6-20) Glucose Level 125 mg/dL (70-99) Calcium Level 9.7 mg/dL (8.5-10.1) Total Bilirubin 0.3 mg/dL (0.2-1.0) Aspartate Amino Transf (AST/SGOT) 14 U/L (15-37) Alanine Aminotransferase (ALT/SGPT) 18 U/L (14-59) Alkaline Phosphatase 94 U/L (46-116) Total Protein 7.3 g/dL (6.4-8.2) Albumin 3.8 g/dL (3.4-5.0) Albumin/Globulin Ratio 1.1 (1.0-1.7) Urine Collection Type Void Urine Color Yellow Urine Clarity Clear Urine pH 6.0 Urine Specific [place] 1.020 Urine Protein Negative mg/dL (NEG-TRACE) Urine Glucose (UA) Negative mg/dL (NEG) Urine Ketones (Stick) Negative mg/dL (NEG) Urine Blood Small (NEG) Urine Nitrite Negative (NEG) Urine Bilirubin Negative (NEG) Urine Urobilinogen Dipstick 0.2 mg/dL (0.2 mg/dL) Urine Leukocyte Esterase Large (NEG) Urine RBC Occ /HPF (0-2) Urine WBC Tntc /HPF (0-4) Urine Squamous Epithelial Cells Mod /LPF Urine Transitional Epithelial Cells Occ /LPF Urine Renal Epithelial Cells Occ /LPF Urine Bacteria Moderate /HPF (0-FEW) Urine Mucus Mod /LPF Laboratory Tests Test 08/19/19 19:50 08/19/19 20:40 08/20/19 03:47 White Blood Count 8.4 x10^3/uL (4.0-11.0) 9.0 x10^3/uL (4.0-11.0) Red Blood Count 4.30 x10^6/uL (3.50-5.40) 3.84 x10^6/uL (3.50-5.40) Hemoglobin 12.8 g/dL (12.0-15.5) 11.4 g/dL (12.0-15.5) Hematocrit 38.3 % (36.0-47.0) 34.2 % (36.0-47.0) Mean Corpuscular Volume 89 fL (79-100) 89 fL (79-100) Mean Corpuscular Hemoglobin 30 pg (25-35) 30 pg (25-35) Mean Corpuscular Hemoglobin Concent 33 g/dL (31-37) 33 g/dL (31-37) Red Cell Distribution Width 14.9 % (11.5-14.5) 14.5 % (11.5-14.5) Platelet Count 337 x10^3/uL (140-400) 294 x10^3/uL (140-400) Neutrophils (%) (Auto) 62 % (31-73) 60 % (31-73) Lymphocytes (%) (Auto) 29 % (24-48) 28 % (24-48) Monocytes (%) (Auto) 7 % (0-9) 9 % (0-9) Eosinophils (%) (Auto) 2 % (0-3) 2 % (0-3) Basophils (%) (Auto) 1 % (0-3) 0 % (0-3) Neutrophils # (Auto) 5.1 x10^3/uL (1.8-7.7) 5.4 x10^3/uL (1.8-7.7) Lymphocytes # (Auto) 2.4 x10^3/uL (1.0-4.8) 2.5 x10^3/uL (1.0-4.8) Monocytes # (Auto) 0.6 x10^3/uL (0.0-1.1) 0.8 x10^3/uL (0.0-1.1) Eosinophils # (Auto) 0.2 x10^3/uL (0.0-0.7) 0.2 x10^3/uL (0.0-0.7) Basophils # (Auto) 0.0 x10^3/uL (0.0-0.2) 0.0 x10^3/uL (0.0-0.2) Prothrombin Time 13.2 SEC (11.7-14.0) Prothromb Time International Ratio 1.0 (0.8-1.1) Sodium Level 144 mmol/L (136-145) Potassium Level 3.8 mmol/L (3.5-5.1) Chloride Level 107 mmol/L (98-107) Carbon Dioxide Level 26 mmol/L (21-32) Anion Gap 11 (6-14) Blood Urea Nitrogen 20 mg/dL (7-20) Creatinine 0.9 mg/dL (0.6-1.0) Estimated GFR (Cockcroft-Gault) 59.5 BUN/Creatinine Ratio 22 (6-20) Glucose Level 125 mg/dL (70-99) Calcium Level 9.7 mg/dL (8.5-10.1) Total Bilirubin 0.3 mg/dL (0.2-1.0) Aspartate Amino Transf (AST/SGOT) 14 U/L (15-37) Alanine Aminotransferase (ALT/SGPT) 18 U/L (14-59) Alkaline Phosphatase 94 U/L (46-116) Total Protein 7.3 g/dL (6.4-8.2) Albumin 3.8 g/dL (3.4-5.0) Albumin/Globulin Ratio 1.1 (1.0-1.7) Urine Collection Type Void Urine Color Yellow Urine Clarity Clear Urine pH 6.0 Urine Specific [place] 1.020 Urine Protein Negative mg/dL (NEG-TRACE) Urine Glucose (UA) Negative mg/dL (NEG) Urine Ketones (Stick) Negative mg/dL (NEG) Urine Blood Small (NEG) Urine Nitrite Negative (NEG) Urine Bilirubin Negative (NEG) Urine Urobilinogen Dipstick 0.2 mg/dL (0.2 mg/dL) Urine Leukocyte Esterase Large (NEG) Urine RBC Occ /HPF (0-2) Urine WBC Tntc /HPF (0-4) Urine Squamous Epithelial Cells Mod /LPF Urine Transitional Epithelial Cells Occ /LPF Urine Renal Epithelial Cells Occ /LPF Urine Bacteria Moderate /HPF (0-FEW) Urine Mucus Mod /LPF Assessment/Plan Assessment/Plan GI bleed hgb stable, hemodynamically stable hemorrhoid nonbleeding observation JESE SANDOVAL MD 08/20/19 1418: CONSULT Assessment/Plan Assessment/Plan Above reviewed, Hb stable, no active bleeding currently; observe for now with serial exams; thanks for the consult!! DUGLAS TORRES APRN Aug 20, 2019 10:12 JESE SANDOVAL MD Aug 20, 2019 14:18
[2019-08-20 11:00] VITALS: BP 160/74
[2019-08-20] MEDS: POTASSIUM CHLORIDE 10 MEQ TABLET.ER. PO SCH (11:37)
[2019-08-20 15:00] VITALS: BP 121/88
[2019-08-20] MEDS ORDERED: BISACODYL 5 MG TABLET.DR. PO ONE ×2 (15:30→18:00)
--- NOTE | 2019-08-20 15:38 | NUR ---
SW following pt for dc planning. Chart reviewed. Pt lives at home alone, gen sx following pt. No dc recommendation noted at this time. Will continue to follow as needed.
[2019-08-20] MEDS ORDERED: POLYETHYLENE GLYCOL 3350 BTL 238 GM POWDER PO ONE (16:00)
[2019-08-20] MEDS: FUROSEMIDE 40 MG TABLET. PO SCH (17:08)
--- NOTE | 2019-08-20 18:00 | NUR ---
Patient having large dark and bright bloody stools, with few clots. Patient demonstrates understanding of calling for/having assistance when getting up to commode.
[2019-08-20 19:00] VITALS: BP 125/75
[2019-08-20] MEDS: cefTRIAXone IV Push 1 GM VIAL. IVP SCH (21:41)
[2019-08-20] MEDS: LACTOBACILLUS RHAMNOSUS GG 1 CAPSULE. PO SCH (21:41)
[2019-08-20] MEDS: ZOLPIDEM 5 MG TABLET. PO PRN (21:42)
[2019-08-20 23:00] VITALS: BP 141/73
[2019-08-21 03:00] VITALS: BP 149/76
[2019-08-21 05:42] LABS: BASO % 1 % (0-3); EOS # 0.2 x10^3/uL (0.0-0.7); EOS % 3 % (0-3); HEMATOCRIT 27.8 % (36.0-47.0); HEMOGLOBIN 9.3 g/dL (12.0-15.5); LYMPH # 2.1 x10^3/uL (1.0-4.8); LYMPH % 33 % (24-48); MEAN CORPUSCULAR HEMOGLOBIN 30 pg (25-35); MEAN CORPUSCULAR HGB CONC 33 g/dL (31-37); MEAN CORPUSCULAR VOLUME 90 fL (79-100); MONO # 0.6 x10^3/uL (0.0-1.1); MONO % 9 % (0-9); NEUT # 3.4 x10^3/uL (1.8-7.7); NEUT % 55 % (31-73); PLATELET COUNT 238 x10^3/uL (140-400); RED BLOOD COUNT 3.09 x10^6/uL (3.50-5.40); RED CELL DISTRIBUTION WIDTH 14.7 % (11.5-14.5); WHITE BLOOD COUNT 6.3 x10^3/uL (4.0-11.0)
[2019-08-21 05:54] LABS: CALCIUM 8.4 mg/dL (8.5-10.1); CREATININE 0.7 mg/dL (0.6-1.0); GFR 79.5; POTASSIUM 3.8 mmol/L (3.5-5.1)
[2019-08-21 07:00] VITALS: BP 146/75
[2019-08-21] MEDS ORDERED: MORPHINE SULFATE 2 MG/ML VIAL. IV PRN (07:00)
[2019-08-21] MEDS ORDERED: IV RINGERS,LACTATED 1000ML 1,000 ML IV SCH (07:00)
[2019-08-21] MEDS ORDERED: LIDOCAINE 1% PF 2 ML VIAL. ID PRN (07:00)
[2019-08-21] MEDS ORDERED: ONDANSETRON PF 4 MG/2 ML VIAL. IV PRN (07:00)
[2019-08-21] MEDS ORDERED: PROCHLORPERAZINE 10 MG/2 ML VIAL. IV PRN (07:00)
[2019-08-21] MEDS ORDERED: HYDROmorphone 2 MG/ML VIAL IV PRN (07:00)
[2019-08-21] MEDS ORDERED: fentaNYL PF VIAL 100 MCG/2 ML VIAL IV PRN ×2 (07:00)
[2019-08-21] MEDS ORDERED: PANTOPRAZOLE IV PUSH 40 MG VIAL. IVP SCH (07:30)
--- NOTE | 2019-08-21 08:18 | PDOC ---
PROGRESS NOTES History of Present Illness History of Present Illness VTE Prophylaxis Ordered VTE Prophylaxis Devices: Yes VTE Pharmacological Prophylaxi: Contraindicated Assessment/Plan Assessment/Plan A/P: Bright red blood per rectum - painless, could be diverticular bleed vs hemorrhoids. hx rectal prolapse, hgb stable at 11.4 08-20 consult GI and general surgery Urinary frequency - with positive leukocyte esterase she may well have a UTI, cont rx empiric rocephin HTN - will cont meds Osteoarthritis - will hold ASA and NSAIDs with her acute bleeding. Tylenol ok H/o Hysterectomy, PROLAPSED rectum surgery - general surgery to see FEN - general diet, NPO now PPX - SCDs FULL CODE Dispo - inpatient for acute lower GI bleeding for further workup of bleeding consider ct abdomen PROCEDURE NOTE PROCEDURE Procedure Colonoscopy bleeding anesthesia with propofol Findings Numerous diverticuli in sigmoid and descending colon with recent bleeding; recurrent polyp in transverse colon at prior tattoo site (10 mm)- removed by piecemeal snare polypectomy, small hemorrhoids Plan- resume diet monitor labs check on A fib DR SANABRIA 29 min pt exam, chart review, > 50% of time spent with exam, chart review, pt care coordination Vitals Vitals Vital Signs Date Time Temp Pulse Resp B/P (MAP) Pulse Ox O2 Delivery O2 Flow Rate FiO2 08/21/19 07:00 97.9 77 18 146/75 (98) 99 Room Air 97.9 Physical Exam General: Alert, Oriented X3, Cooperative, No acute distress Heart: Regular rate, Normal S1, Normal S2, No murmurs Lungs: Clear Abdomen: Normal bowel sounds, Soft, No tenderness Extremities: No clubbing, No cyanosis Skin: No rashes, No breakdown Labs LABS Laboratory Tests Test 08/20/19 16:40 08/21/19 05:10 Hemoglobin 10.3 g/dL (12.0-15.5) 9.3 g/dL (12.0-15.5) White Blood Count 6.3 x10^3/uL (4.0-11.0) Red Blood Count 3.09 x10^6/uL (3.50-5.40) Hematocrit 27.8 % (36.0-47.0) Mean Corpuscular Volume 90 fL (79-100) Mean Corpuscular Hemoglobin 30 pg (25-35) Mean Corpuscular Hemoglobin Concent 33 g/dL (31-37) Red Cell Distribution Width 14.7 % (11.5-14.5) Platelet Count 238 x10^3/uL (140-400) Neutrophils (%) (Auto) 55 % (31-73) Lymphocytes (%) (Auto) 33 % (24-48) Monocytes (%) (Auto) 9 % (0-9) Eosinophils (%) (Auto) 3 % (0-3) Basophils (%) (Auto) 1 % (0-3) Neutrophils # (Auto) 3.4 x10^3/uL (1.8-7.7) Lymphocytes # (Auto) 2.1 x10^3/uL (1.0-4.8) Monocytes # (Auto) 0.6 x10^3/uL (0.0-1.1) Eosinophils # (Auto) 0.2 x10^3/uL (0.0-0.7) Basophils # (Auto) 0.0 x10^3/uL (0.0-0.2) Sodium Level 146 mmol/L (136-145) Potassium Level 3.8 mmol/L (3.5-5.1) Chloride Level 112 mmol/L (98-107) Carbon Dioxide Level 24 mmol/L (21-32) Anion Gap 10 (6-14) Blood Urea Nitrogen 6 mg/dL (7-20) Creatinine 0.7 mg/dL (0.6-1.0) Estimated GFR (Cockcroft-Gault) 79.5 Glucose Level 99 mg/dL (70-99) Calcium Level 8.4 mg/dL (8.5-10.1) Assessment and Plan Assessmemt and Plan Problems Medical Problems: (1) Rectal bleeding Status: Acute (2) Urinary tract infection Status: Acute Comment Review of Relevant I have reviewed the following items rhonda (where applicable) has been applied. Labs Laboratory Tests Test 08/19/19 19:50 08/19/19 20:40 08/20/19 03:47 08/20/19 16:40 White Blood Count 8.4 x10^3/uL (4.0-11.0) 9.0 x10^3/uL (4.0-11.0) Red Blood Count 4.30 x10^6/uL (3.50-5.40) 3.84 x10^6/uL (3.50-5.40) Hemoglobin 12.8 g/dL (12.0-15.5) 11.4 g/dL (12.0-15.5) 10.3 g/dL (12.0-15.5) Hematocrit 38.3 % (36.0-47.0) 34.2 % (36.0-47.0) Mean Corpuscular Volume 89 fL (79-100) 89 fL (79-100) Mean Corpuscular Hemoglobin 30 pg (25-35) 30 pg (25-35) Mean Corpuscular Hemoglobin Concent 33 g/dL (31-37) 33 g/dL (31-37) Red Cell Distribution Width 14.9 % (11.5-14.5) 14.5 % (11.5-14.5) Platelet Count 337 x10^3/uL (140-400) 294 x10^3/uL (140-400) Neutrophils (%) (Auto) 62 % (31-73) 60 % (31-73) Lymphocytes (%) (Auto) 29 % (24-48) 28 % (24-48) Monocytes (%) (Auto) 7 % (0-9) 9 % (0-9) Eosinophils (%) (Auto) 2 % (0-3) 2 % (0-3) Basophils (%) (Auto) 1 % (0-3) 0 % (0-3) Neutrophils # (Auto) 5.1 x10^3/uL (1.8-7.7) 5.4 x10^3/uL (1.8-7.7) Lymphocytes # (Auto) 2.4 x10^3/uL (1.0-4.8) 2.5 x10^3/uL (1.0-4.8) Monocytes # (Auto) 0.6 x10^3/uL (0.0-1.1) 0.8 x10^3/uL (0.0-1.1) Eosinophils # (Auto) 0.2 x10^3/uL (0.0-0.7) 0.2 x10^3/uL (0.0-0.7) Basophils # (Auto) 0.0 x10^3/uL (0.0-0.2) 0.0 x10^3/uL (0.0-0.2) Prothrombin Time 13.2 SEC (11.7-14.0) Prothromb Time International Ratio 1.0 (0.8-1.1) Sodium Level 144 mmol/L (136-145) Potassium Level 3.8 mmol/L (3.5-5.1) Chloride Level 107 mmol/L (98-107) Carbon Dioxide Level 26 mmol/L (21-32) Anion Gap 11 (6-14) Blood Urea Nitrogen 20 mg/dL (7-20) Creatinine 0.9 mg/dL (0.6-1.0) Estimated GFR (Cockcroft-Gault) 59.5 BUN/Creatinine Ratio 22 (6-20) Glucose Level 125 mg/dL (70-99) Calcium Level 9.7 mg/dL (8.5-10.1) Total Bilirubin 0.3 mg/dL (0.2-1.0) Aspartate Amino Transf (AST/SGOT) 14 U/L (15-37) Alanine Aminotransferase (ALT/SGPT) 18 U/L (14-59) Alkaline Phosphatase 94 U/L (46-116) Total Protein 7.3 g/dL (6.4-8.2) Albumin 3.8 g/dL (3.4-5.0) Albumin/Globulin Ratio 1.1 (1.0-1.7) Urine Collection Type Void Urine Color Yellow Urine Clarity Clear Urine pH 6.0 Urine Specific [place] 1.020 Urine Protein Negative mg/dL (NEG-TRACE) Urine Glucose (UA) Negative mg/dL (NEG) Urine Ketones (Stick) Negative mg/dL (NEG) Urine Blood Small (NEG) Urine Nitrite Negative (NEG) Urine Bilirubin Negative (NEG) Urine Urobilinogen Dipstick 0.2 mg/dL (0.2 mg/dL) Urine Leukocyte Esterase Large (NEG) Urine RBC Occ /HPF (0-2) Urine WBC Tntc /HPF (0-4) Urine Squamous Epithelial Cells Mod /LPF Urine Transitional Epithelial Cells Occ /LPF Urine Renal Epithelial Cells Occ /LPF Urine Bacteria Moderate /HPF (0-FEW) Urine Mucus Mod /LPF Test 08/21/19 05:10 White Blood Count 6.3 x10^3/uL (4.0-11.0) Red Blood Count 3.09 x10^6/uL (3.50-5.40) Hemoglobin 9.3 g/dL (12.0-15.5) Hematocrit 27.8 % (36.0-47.0) Mean Corpuscular Volume 90 fL (79-100) Mean Corpuscular Hemoglobin 30 pg (25-35) Mean Corpuscular Hemoglobin Concent 33 g/dL (31-37) Red Cell Distribution Width 14.7 % (11.5-14.5) Platelet Count 238 x10^3/uL (140-400) Neutrophils (%) (Auto) 55 % (31-73) Lymphocytes (%) (Auto) 33 % (24-48) Monocytes (%) (Auto) 9 % (0-9) Eosinophils (%) (Auto) 3 % (0-3) Basophils (%) (Auto) 1 % (0-3) Neutrophils # (Auto) 3.4 x10^3/uL (1.8-7.7) Lymphocytes # (Auto) 2.1 x10^3/uL (1.0-4.8) Monocytes # (Auto) 0.6 x10^3/uL (0.0-1.1) Eosinophils # (Auto) 0.2 x10^3/uL (0.0-0.7) Basophils # (Auto) 0.0 x10^3/uL (0.0-0.2) Sodium Level 146 mmol/L (136-145) Potassium Level 3.8 mmol/L (3.5-5.1) Chloride Level 112 mmol/L (98-107) Carbon Dioxide Level 24 mmol/L (21-32) Anion Gap 10 (6-14) Blood Urea Nitrogen 6 mg/dL (7-20) Creatinine 0.7 mg/dL (0.6-1.0) Estimated GFR (Cockcroft-Gault) 79.5 Glucose Level 99 mg/dL (70-99) Calcium Level 8.4 mg/dL (8.5-10.1) Laboratory Tests Test 08/20/19 16:40 08/21/19 05:10 Hemoglobin 10.3 g/dL (12.0-15.5) 9.3 g/dL (12.0-15.5) White Blood Count 6.3 x10^3/uL (4.0-11.0) Red Blood Count 3.09 x10^6/uL (3.50-5.40) Hematocrit 27.8 % (36.0-47.0) Mean Corpuscular Volume 90 fL (79-100) Mean Corpuscular Hemoglobin 30 pg (25-35) Mean Corpuscular Hemoglobin Concent 33 g/dL (31-37) Red Cell Distribution Width 14.7 % (11.5-14.5) Platelet Count 238 x10^3/uL (140-400) Neutrophils (%) (Auto) 55 % (31-73) Lymphocytes (%) (Auto) 33 % (24-48) Monocytes (%) (Auto) 9 % (0-9) Eosinophils (%) (Auto) 3 % (0-3) Basophils (%) (Auto) 1 % (0-3) Neutrophils # (Auto) 3.4 x10^3/uL (1.8-7.7) Lymphocytes # (Auto) 2.1 x10^3/uL (1.0-4.8) Monocytes # (Auto) 0.6 x10^3/uL (0.0-1.1) Eosinophils # (Auto) 0.2 x10^3/uL (0.0-0.7) Basophils # (Auto) 0.0 x10^3/uL (0.0-0.2) Sodium Level 146 mmol/L (136-145) Potassium Level 3.8 mmol/L (3.5-5.1) Chloride Level 112 mmol/L (98-107) Carbon Dioxide Level 24 mmol/L (21-32) Anion Gap 10 (6-14) Blood Urea Nitrogen 6 mg/dL (7-20) Creatinine 0.7 mg/dL (0.6-1.0) Estimated GFR (Cockcroft-Gault) 79.5 Glucose Level 99 mg/dL (70-99) Calcium Level 8.4 mg/dL (8.5-10.1) Medications Current Medications Ceftriaxone Sodium (Rocephin) 1 gm 1X ONCE IVP Last administered on 08/19/19at 21:53; Start 08/19/19 at 21:30; Stop 08/19/19 at 21:31; Status DC Ondansetron HCl (Zofran) 4 mg PRN Q8HRS PRN IV NAUSEA/VOMITING 1ST CHOICE; Start 08/19/19 at 21:15; Stop 08/19/19 at 22:58; Status DC Sodium Chloride 1,000 ml @ 125 mls/hr Q8H IV Last administered on 08/20/19at 21:42; Start 08/19/19 at 21:30; Stop 08/20/19 at 21:29; Status DC Acetaminophen (Tylenol) 650 mg PRN Q4HRS PRN PO FEVER; Start 08/19/19 at 21:15; Stop 08/19/19 at 23:03; Status DC Fish Oil (Fish Oil) 1,000 mg DAILY PO ; Start 08/20/19 at 09:00 Potassium Chloride (Klor-Con) 10 meq DAILY PO Last administered on 08/20/19at 11:37; Start 08/20/19 at 09:00 Tramadol HCl (Ultram) 50 mg PRN Q6HRS PRN PO MODERATE PAIN 4-6; Start 08/19/19 at 22:45 Calcium Carbonate/ Glycine (Oscal) 500 mg DAILY PO ; Start 08/20/19 at 09:00 Vitamin D (Vitamin D3) 2,000 unit DAILY PO ; Start 08/20/19 at 09:00 Cyanocobalamin (Vitamin B-12) 500 mcg DAILY PO ; Start 08/20/19 at 09:00 Losartan Potassium (Cozaar) 100 mg DAILY PO ; Start 08/20/19 at 09:00 Ceftriaxone Sodium (Rocephin) 1 gm Q24H IVP Last administered on 08/20/19at 21:41; Start 08/20/19 at 22:00 Hydrochlorothiazide (Microzide) 12.5 mg DAILY PO ; Start 08/20/19 at 09:00; Stop 08/20/19 at 15:28; Status DC Ondansetron HCl (Zofran) 4 mg PRN Q6HRS PRN IV NAUSEA/VOMITING 1ST CHOICE; Start 08/19/19 at 23:00 Acetaminophen (Tylenol) 650 mg PRN Q6HRS PRN PO MILD PAIN / TEMP; Start 08/19/19 at 23:00 Losartan Potassium (Cozaar) 100 mg 1X ONCE PO Last administered on 08/19/19at 23:27; Start 08/19/19 at 23:30; Stop 08/19/19 at 23:31; Status DC Pantoprazole Sodium (Protonix) 40 mg DAILYAC PO Last administered on 08/20/19at 11:36; Start 08/20/19 at 10:00; Stop 08/20/19 at 15:27; Status DC Lactobacillus Rhamnosus (Culturelle) 1 cap BID PO Last administered on 08/20/19at 21:41; Start 08/20/19 at 21:00 Polyethylene Glycol (miraLAX Powder BULK BOTTLE) 238 gm 1X ONCE PO Last administered on 08/20/19at 17:04; Start 08/20/19 at 16:00; Stop 08/20/19 at 16:01; Status DC Bisacodyl (Dulcolax Tab) 10 mg 1X ONCE PO Last administered on 08/20/19at 17:07; Start 08/20/19 at 15:30; Stop 08/20/19 at 15:31; Status DC Bisacodyl (Dulcolax Tab) 10 mg 1X ONCE PO Last administered on 08/20/19at 18:56; Start 08/20/19 at 18:00; Stop 08/20/19 at 18:01; Status DC Pantoprazole Sodium (PROTONIX VIAL for IV PUSH) 40 mg DAILYAC IVP ; Start 08/21/19 at 07:30 Furosemide (Lasix) 40 mg DAILY PO Last administered on 08/20/19at 17:08; Start 08/20/19 at 15:30 Ondansetron HCl (Zofran) 4 mg PRN Q6HRS PRN IV NAUSEA/VOMITING; Start 08/21/19 at 07:00; Stop 08/22/19 at 06:59 Fentanyl Citrate (Fentanyl 2ml Vial) 25 mcg PRN Q5MIN PRN IV MILD PAIN 1-3; Start 08/21/19 at 07:00; Stop 08/22/19 at 06:59 Fentanyl Citrate (Fentanyl 2ml Vial) 50 mcg PRN Q5MIN PRN IV MODERATE TO SEVERE PAIN; Start 08/21/19 at 07:00; Stop 08/22/19 at 06:59 Morphine Sulfate (Morphine Sulfate) 1 mg PRN Q10MIN PRN IV SEVERE PAIN 7-10; Start 08/21/19 at 07:00; Stop 08/22/19 at 06:59 Ringer's Solution 1,000 ml @ 30 mls/hr Q24H IV ; Start 08/21/19 at 07:00; Stop 08/21/19 at 18:59 Lidocaine HCl (Xylocaine-Mpf 1% 2ml Vial) 2 ml PRN 1X PRN ID PRIOR TO IV START; Start 08/21/19 at 07:00; Stop 08/22/19 at 06:59 Hydromorphone HCl (Dilaudid) 0.5 mg PRN Q10MIN PRN IV SEV PAIN, Second choice; Start 08/21/19 at 07:00; Stop 08/22/19 at 06:59 Prochlorperazine Edisylate (Compazine) 5 mg PACU PRN PRN IV NAUSEA, MRX1; Start 08/21/19 at 07:00; Stop 08/22/19 at 06:59 Zolpidem Tartrate (Ambien) 5 mg PRN QHS PRN PO INSOMNIA Last administered on 08/20/19at 21:42; Start 08/20/19 at 21:15 Active Scripts Active Reported Losartan Potassium 100 Mg Tablet 100 Mg PO HS PRN [Q10] 1 Cap PO DAILY Multivitamins (Multivitamin) 1 Each Tablet 1 Tab PO DAILY Tylenol (Acetaminophen) 325 Mg Tablet 650 Mg PO Q6HRS Pcrrnpxogh-Bcezdvpaobi-Xgj Tab (Gluc/[place]-Msm#2/C/D3/Rhys/Born) 1 Each Tablet 1 Each PO BID Calcium (Calcium Carbonate) 600 Mg Tablet 600 Mg PO DAILY Tizanidine Hcl 4 Mg Tablet 1 Tab PO QHS Fish Oil 1,400 Mg Softgel ([place]-3/Dha/Epa/Fish Oil) 1 Each Capsule. 1 Each PO DAILY Vitamin D-3 (Cholecalciferol (Vitamin D3)) 2,000 Unit Capsule 2,000 Unit PO DAILY B-12 (Cyanocobalamin (Vitamin B-12)) 500 Mcg Tablet 1,000 Mcg PO DAILY Tramadol Hcl 50 Mg Tablet 50 Mg PO Q6HRS PRN Meloxicam 15 Mg Tablet 0.5 Tab PO DAILY Aspir-Low (Aspirin) 81 Mg Tablet.dr 1 Tab PO HS Potassium Chloride 10 Meq Tab.sr.24h 10 Meq PO DAILY Furosemide 40 Mg Tablet 1 Tab PO DAILY Vitals/I & O Vital Sign - Last 24 Hours 08/20/19 08/20/19 08/20/1919 11:00 15:00 19:00 20:00 Temp 98.0 98.0 97.6 98.0 98.0 97.6 Pulse 74 76 58 Resp 16 16 17 B/P (MAP) 160/74 (102) 121/88 (99) 125/75 (92) Pulse Ox 96 96 90 O2 Delivery Room Air Room Air Room Air Room Air 08/20/19 08/21/19 08/21/19 23:00 03:00 07:00 Temp 97.4 97.8 97.9 97.4 97.8 97.9 Pulse 77 80 77 Resp 17 17 18 B/P (MAP) 141/73 (95) 149/76 (100) 146/75 (98) Pulse Ox 97 100 99 O2 Delivery Room Air Room Air Room Air Intake and Output 08/20/19 08/20/19 08/21/19 15:00 23:00 07:00 Intake Total 1240 ml 240 ml Output Total 6 ml Balance 1240 ml 234 ml ZOE REYNOLDS MD Aug 21, 2019 08:18
[2019-08-21] MEDS: LOSARTAN POTASSIUM 50 MG TABLET. PO SCH ×3 (09:00→14:57)
--- NOTE | 2019-08-21 09:59 | PDOC ---
PROGRESS NOTES Subjective Subjective pt awake, no pain, some continued passage of bright blood yesterday Objective Objective Vital Signs Date Time Temp Pulse Resp B/P (MAP) Pulse Ox O2 Delivery O2 Flow Rate FiO2 08/21/19 07:00 97.9 77 18 146/75 (98) 99 Room Air 97.9 Intake and Output 08/21/19 07:00 Intake Total 1480 ml Output Total 6 ml Balance 1474 ml Intake Oral 480 ml IV Total 1000 ml Output Urine Total 6 ml # Voids 14 # Bowel Movements 7 Physical Exam Abdomen: Soft, No tenderness Heart: Regular rate Extremities: No clubbing, No cyanosis General: Alert, Oriented X3 Lungs: Clear to auscultation Neuro: Normal speech Psych/Mental Status: Mental status NL Assessment Assessment Problems Medical Problems: (1) Rectal bleeding Status: Acute (2) Urinary tract infection Status: Acute Plan Plan of Care Hb down to 9.3; EGD/colonoscopy today per GI, await findings Comment Review of Relevant I have reviewed the following items rhonda (where applicable) has been applied. Labs Laboratory Tests Test 08/19/19 19:50 08/19/19 20:40 08/20/19 03:47 08/20/19 16:40 White Blood Count 8.4 x10^3/uL (4.0-11.0) 9.0 x10^3/uL (4.0-11.0) Red Blood Count 4.30 x10^6/uL (3.50-5.40) 3.84 x10^6/uL (3.50-5.40) Hemoglobin 12.8 g/dL (12.0-15.5) 11.4 g/dL (12.0-15.5) 10.3 g/dL (12.0-15.5) Hematocrit 38.3 % (36.0-47.0) 34.2 % (36.0-47.0) Mean Corpuscular Volume 89 fL (79-100) 89 fL (79-100) Mean Corpuscular Hemoglobin 30 pg (25-35) 30 pg (25-35) Mean Corpuscular Hemoglobin Concent 33 g/dL (31-37) 33 g/dL (31-37) Red Cell Distribution Width 14.9 % (11.5-14.5) 14.5 % (11.5-14.5) Platelet Count 337 x10^3/uL (140-400) 294 x10^3/uL (140-400) Neutrophils (%) (Auto) 62 % (31-73) 60 % (31-73) Lymphocytes (%) (Auto) 29 % (24-48) 28 % (24-48) Monocytes (%) (Auto) 7 % (0-9) 9 % (0-9) Eosinophils (%) (Auto) 2 % (0-3) 2 % (0-3) Basophils (%) (Auto) 1 % (0-3) 0 % (0-3) Neutrophils # (Auto) 5.1 x10^3/uL (1.8-7.7) 5.4 x10^3/uL (1.8-7.7) Lymphocytes # (Auto) 2.4 x10^3/uL (1.0-4.8) 2.5 x10^3/uL (1.0-4.8) Monocytes # (Auto) 0.6 x10^3/uL (0.0-1.1) 0.8 x10^3/uL (0.0-1.1) Eosinophils # (Auto) 0.2 x10^3/uL (0.0-0.7) 0.2 x10^3/uL (0.0-0.7) Basophils # (Auto) 0.0 x10^3/uL (0.0-0.2) 0.0 x10^3/uL (0.0-0.2) Prothrombin Time 13.2 SEC (11.7-14.0) Prothromb Time International Ratio 1.0 (0.8-1.1) Sodium Level 144 mmol/L (136-145) Potassium Level 3.8 mmol/L (3.5-5.1) Chloride Level 107 mmol/L (98-107) Carbon Dioxide Level 26 mmol/L (21-32) Anion Gap 11 (6-14) Blood Urea Nitrogen 20 mg/dL (7-20) Creatinine 0.9 mg/dL (0.6-1.0) Estimated GFR (Cockcroft-Gault) 59.5 BUN/Creatinine Ratio 22 (6-20) Glucose Level 125 mg/dL (70-99) Calcium Level 9.7 mg/dL (8.5-10.1) Total Bilirubin 0.3 mg/dL (0.2-1.0) Aspartate Amino Transf (AST/SGOT) 14 U/L (15-37) Alanine Aminotransferase (ALT/SGPT) 18 U/L (14-59) Alkaline Phosphatase 94 U/L (46-116) Total Protein 7.3 g/dL (6.4-8.2) Albumin 3.8 g/dL (3.4-5.0) Albumin/Globulin Ratio 1.1 (1.0-1.7) Urine Collection Type Void Urine Color Yellow Urine Clarity Clear Urine pH 6.0 Urine Specific [place] 1.020 Urine Protein Negative mg/dL (NEG-TRACE) Urine Glucose (UA) Negative mg/dL (NEG) Urine Ketones (Stick) Negative mg/dL (NEG) Urine Blood Small (NEG) Urine Nitrite Negative (NEG) Urine Bilirubin Negative (NEG) Urine Urobilinogen Dipstick 0.2 mg/dL (0.2 mg/dL) Urine Leukocyte Esterase Large (NEG) Urine RBC Occ /HPF (0-2) Urine WBC Tntc /HPF (0-4) Urine Squamous Epithelial Cells Mod /LPF Urine Transitional Epithelial Cells Occ /LPF Urine Renal Epithelial Cells Occ /LPF Urine Bacteria Moderate /HPF (0-FEW) Urine Mucus Mod /LPF Test 08/21/19 05:10 White Blood Count 6.3 x10^3/uL (4.0-11.0) Red Blood Count 3.09 x10^6/uL (3.50-5.40) Hemoglobin 9.3 g/dL (12.0-15.5) Hematocrit 27.8 % (36.0-47.0) Mean Corpuscular Volume 90 fL (79-100) Mean Corpuscular Hemoglobin 30 pg (25-35) Mean Corpuscular Hemoglobin Concent 33 g/dL (31-37) Red Cell Distribution Width 14.7 % (11.5-14.5) Platelet Count 238 x10^3/uL (140-400) Neutrophils (%) (Auto) 55 % (31-73) Lymphocytes (%) (Auto) 33 % (24-48) Monocytes (%) (Auto) 9 % (0-9) Eosinophils (%) (Auto) 3 % (0-3) Basophils (%) (Auto) 1 % (0-3) Neutrophils # (Auto) 3.4 x10^3/uL (1.8-7.7) Lymphocytes # (Auto) 2.1 x10^3/uL (1.0-4.8) Monocytes # (Auto) 0.6 x10^3/uL (0.0-1.1) Eosinophils # (Auto) 0.2 x10^3/uL (0.0-0.7) Basophils # (Auto) 0.0 x10^3/uL (0.0-0.2) Sodium Level 146 mmol/L (136-145) Potassium Level 3.8 mmol/L (3.5-5.1) Chloride Level 112 mmol/L (98-107) Carbon Dioxide Level 24 mmol/L (21-32) Anion Gap 10 (6-14) Blood Urea Nitrogen 6 mg/dL (7-20) Creatinine 0.7 mg/dL (0.6-1.0) Estimated GFR (Cockcroft-Gault) 79.5 Glucose Level 99 mg/dL (70-99) Calcium Level 8.4 mg/dL (8.5-10.1) Laboratory Tests Test 08/20/19 16:40 08/21/19 05:10 Hemoglobin 10.3 g/dL (12.0-15.5) 9.3 g/dL (12.0-15.5) White Blood Count 6.3 x10^3/uL (4.0-11.0) Red Blood Count 3.09 x10^6/uL (3.50-5.40) Hematocrit 27.8 % (36.0-47.0) Mean Corpuscular Volume 90 fL (79-100) Mean Corpuscular Hemoglobin 30 pg (25-35) Mean Corpuscular Hemoglobin Concent 33 g/dL (31-37) Red Cell Distribution Width 14.7 % (11.5-14.5) Platelet Count 238 x10^3/uL (140-400) Neutrophils (%) (Auto) 55 % (31-73) Lymphocytes (%) (Auto) 33 % (24-48) Monocytes (%) (Auto) 9 % (0-9) Eosinophils (%) (Auto) 3 % (0-3) Basophils (%) (Auto) 1 % (0-3) Neutrophils # (Auto) 3.4 x10^3/uL (1.8-7.7) Lymphocytes # (Auto) 2.1 x10^3/uL (1.0-4.8) Monocytes # (Auto) 0.6 x10^3/uL (0.0-1.1) Eosinophils # (Auto) 0.2 x10^3/uL (0.0-0.7) Basophils # (Auto) 0.0 x10^3/uL (0.0-0.2) Sodium Level 146 mmol/L (136-145) Potassium Level 3.8 mmol/L (3.5-5.1) Chloride Level 112 mmol/L (98-107) Carbon Dioxide Level 24 mmol/L (21-32) Anion Gap 10 (6-14) Blood Urea Nitrogen 6 mg/dL (7-20) Creatinine 0.7 mg/dL (0.6-1.0) Estimated GFR (Cockcroft-Gault) 79.5 Glucose Level 99 mg/dL (70-99) Calcium Level 8.4 mg/dL (8.5-10.1) Medications Current Medications Ceftriaxone Sodium (Rocephin) 1 gm 1X ONCE IVP Last administered on 08/19/19at 21:53; Start 08/19/19 at 21:30; Stop 08/19/19 at 21:31; Status DC Ondansetron HCl (Zofran) 4 mg PRN Q8HRS PRN IV NAUSEA/VOMITING 1ST CHOICE; Start 08/19/19 at 21:15; Stop 08/19/19 at 22:58; Status DC Sodium Chloride 1,000 ml @ 125 mls/hr Q8H IV Last administered on 08/20/19at 21:42; Start 08/19/19 at 21:30; Stop 08/20/19 at 21:29; Status DC Acetaminophen (Tylenol) 650 mg PRN Q4HRS PRN PO FEVER; Start 08/19/19 at 21:15; Stop 08/19/19 at 23:03; Status DC Fish Oil (Fish Oil) 1,000 mg DAILY PO ; Start 08/20/19 at 09:00 Potassium Chloride (Klor-Con) 10 meq DAILY PO Last administered on 08/20/19at 11:37; Start 08/20/19 at 09:00 Tramadol HCl (Ultram) 50 mg PRN Q6HRS PRN PO MODERATE PAIN 4-6; Start 08/19/19 at 22:45 Calcium Carbonate/ Glycine (Oscal) 500 mg DAILY PO ; Start 08/20/19 at 09:00 Vitamin D (Vitamin D3) 2,000 unit DAILY PO ; Start 08/20/19 at 09:00 Cyanocobalamin (Vitamin B-12) 500 mcg DAILY PO ; Start 08/20/19 at 09:00 Losartan Potassium (Cozaar) 100 mg DAILY PO ; Start 08/20/19 at 09:00 Ceftriaxone Sodium (Rocephin) 1 gm Q24H IVP Last administered on 08/20/19at 21:41; Start 08/20/19 at 22:00 Hydrochlorothiazide (Microzide) 12.5 mg DAILY PO ; Start 08/20/19 at 09:00; Stop 08/20/19 at 15:28; Status DC Ondansetron HCl (Zofran) 4 mg PRN Q6HRS PRN IV NAUSEA/VOMITING 1ST CHOICE; Start 08/19/19 at 23:00 Acetaminophen (Tylenol) 650 mg PRN Q6HRS PRN PO MILD PAIN / TEMP; Start 08/19/19 at 23:00 Losartan Potassium (Cozaar) 100 mg 1X ONCE PO Last administered on 08/19/19at 23:27; Start 08/19/19 at 23:30; Stop 08/19/19 at 23:31; Status DC Pantoprazole Sodium (Protonix) 40 mg DAILYAC PO Last administered on 08/20/19at 11:36; Start 08/20/19 at 10:00; Stop 08/20/19 at 15:27; Status DC Lactobacillus Rhamnosus (Culturelle) 1 cap BID PO Last administered on 08/20/19at 21:41; Start 08/20/19 at 21:00 Polyethylene Glycol (miraLAX Powder BULK BOTTLE) 238 gm 1X ONCE PO Last administered on 08/20/19at 17:04; Start 08/20/19 at 16:00; Stop 08/20/19 at 16:01; Status DC Bisacodyl (Dulcolax Tab) 10 mg 1X ONCE PO Last administered on 08/20/19at 17:07; Start 08/20/19 at 15:30; Stop 08/20/19 at 15:31; Status DC Bisacodyl (Dulcolax Tab) 10 mg 1X ONCE PO Last administered on 08/20/19at 18:56; Start 08/20/19 at 18:00; Stop 08/20/19 at 18:01; Status DC Pantoprazole Sodium (PROTONIX VIAL for IV PUSH) 40 mg DAILYAC IVP Last administered on 08/21/19at 08:27; Start 08/21/19 at 07:30 Furosemide (Lasix) 40 mg DAILY PO Last administered on 08/20/19at 17:08; Start 08/20/19 at 15:30 Ondansetron HCl (Zofran) 4 mg PRN Q6HRS PRN IV NAUSEA/VOMITING; Start 08/21/19 at 07:00; Stop 08/22/19 at 06:59 Fentanyl Citrate (Fentanyl 2ml Vial) 25 mcg PRN Q5MIN PRN IV MILD PAIN 1-3; Start 08/21/19 at 07:00; Stop 08/22/19 at 06:59 Fentanyl Citrate (Fentanyl 2ml Vial) 50 mcg PRN Q5MIN PRN IV MODERATE TO SEVERE PAIN; Start 08/21/19 at 07:00; Stop 08/22/19 at 06:59 Morphine Sulfate (Morphine Sulfate) 1 mg PRN Q10MIN PRN IV SEVERE PAIN 7-10; Start 08/21/19 at 07:00; Stop 08/22/19 at 06:59 Ringer's Solution 1,000 ml @ 30 mls/hr Q24H IV ; Start 08/21/19 at 07:00; Stop 08/21/19 at 18:59 Lidocaine HCl (Xylocaine-Mpf 1% 2ml Vial) 2 ml PRN 1X PRN ID PRIOR TO IV START; Start 08/21/19 at 07:00; Stop 08/22/19 at 06:59 Hydromorphone HCl (Dilaudid) 0.5 mg PRN Q10MIN PRN IV SEV PAIN, Second choice; Start 08/21/19 at 07:00; Stop 08/22/19 at 06:59 Prochlorperazine Edisylate (Compazine) 5 mg PACU PRN PRN IV NAUSEA, MRX1; Start 08/21/19 at 07:00; Stop 08/22/19 at 06:59 Zolpidem Tartrate (Ambien) 5 mg PRN QHS PRN PO INSOMNIA Last administered on 08/20/19at 21:42; Start 08/20/19 at 21:15 Active Scripts Active Reported Losartan Potassium 100 Mg Tablet 100 Mg PO HS PRN [Q10] 1 Cap PO DAILY Multivitamins (Multivitamin) 1 Each Tablet 1 Tab PO DAILY Tylenol (Acetaminophen) 325 Mg Tablet 650 Mg PO Q6HRS Ejjnhsujrx-Iirwqtwzqpz-Nzb Tab (Gluc/Jameson-Msm#2/C/D3/Rhys/Born) 1 Each Tablet 1 Each PO BID Calcium (Calcium Carbonate) 600 Mg Tablet 600 Mg PO DAILY Tizanidine Hcl 4 Mg Tablet 1 Tab PO QHS Fish Oil 1,400 Mg Softgel (Shafer-3/Dha/Epa/Fish Oil) 1 Each Capsule. 1 Each PO DAILY Vitamin D-3 (Cholecalciferol (Vitamin D3)) 2,000 Unit Capsule 2,000 Unit PO DAILY B-12 (Cyanocobalamin (Vitamin B-12)) 500 Mcg Tablet 1,000 Mcg PO DAILY Tramadol Hcl 50 Mg Tablet 50 Mg PO Q6HRS PRN Meloxicam 15 Mg Tablet 0.5 Tab PO DAILY Aspir-Low (Aspirin) 81 Mg Tablet. 1 Tab PO HS Potassium Chloride 10 Meq Tab.sr.24h 10 Meq PO DAILY Furosemide 40 Mg Tablet 1 Tab PO DAILY Vitals/I & O Vital Sign - Last 24 Hours 08/20/19 08/20/19 08/20/19 08/20/19 11:00 15:00 19:00 20:00 Temp 98.0 98.0 97.6 98.0 98.0 97.6 Pulse 74 76 58 Resp 16 16 17 B/P (MAP) 160/74 (102) 121/88 (99) 125/75 (92) Pulse Ox 96 96 90 O2 Delivery Room Air Room Air Room Air Room Air 08/20/19 08/21/19 08/21/19 23:00 03:00 07:00 Temp 97.4 97.8 97.9 97.4 97.8 97.9 Pulse 77 80 77 Resp 17 17 18 B/P (MAP) 141/73 (95) 149/76 (100) 146/75 (98) Pulse Ox 97 100 99 O2 Delivery Room Air Room Air Room Air Intake and Output 08/20/19 08/20/19 08/21/19 15:00 23:00 07:00 Intake Total 1240 ml 240 ml Output Total 6 ml Balance 1240 ml 234 ml JESE SANDOVAL MD Aug 21, 2019 09:59
[2019-08-21 11:00] VITALS: BP 144/73
[2019-08-21] MEDS ORDERED: PROPOFOL 40 ML IV ONE (12:25)
[2019-08-21] MEDS ORDERED: LIDOCAINE 2% PF 5 ML VIAL. ONE (12:25)
--- NOTE | 2019-08-21 12:37 | PDOC4 ---
PROCEDURE Procedure EGD Gi bleeding Anesthesia with propofol Findings E- small HH, no ulcers G- bile gastritis, some erosions, no ulcers - no bleeding (bx) D- normal MARIAN SANABRIA MD Aug 21, 2019 12:36
--- NOTE | 2019-08-21 13:24 | PDOC4 ---
PROCEDURE Procedure Colonoscopy bleeding anesthesia with propofol Findings Numerous diverticuli in sigmoid and descending colon with recent bleeding; recurrent polyp in transverse colon at prior tattoo site (10 mm)- removed by piecemeal snare polypectomy, small hemorrhoids Plan- resume diet monitor labs check on A fib MARIAN SANABRIA MD Aug 21, 2019 13:24
[2019-08-21] MEDS: FUROSEMIDE 40 MG TABLET. PO SCH (14:56)
[2019-08-21] MEDS: OMEGA-3 FATTY ACIDS/FISH OIL 1,000 MG CAPSULE. PO SCH (14:56)
[2019-08-21] MEDS: POTASSIUM CHLORIDE 10 MEQ TABLET.ER. PO SCH (14:56)
[2019-08-21] MEDS: CYANOCOBALAMIN (VITAMIN B-12) 1,000 MCG TABLET. PO SCH (14:56)
[2019-08-21] MEDS: LACTOBACILLUS RHAMNOSUS GG 1 CAPSULE. PO SCH ×2 (14:56→21:09)
[2019-08-21] MEDS: CHOLECALCIFEROL (VITAMIN D3) 1,000 UNIT TABLET PO SCH (14:57)
[2019-08-21] MEDS: CALCIUM CARBONATE 500 MG TABLET PO SCH (14:57)
[2019-08-21 15:00] VITALS: BP 138/75
[2019-08-21 19:00] VITALS: BP 144/86
[2019-08-21] MEDS: ZOLPIDEM 5 MG TABLET. PO PRN (21:09)
[2019-08-21] MEDS: cefTRIAXone IV Push 1 GM VIAL. IVP SCH (21:14)
[2019-08-21] MEDS: traMADol 50 MG TABLET PO PRN (21:14)
[2019-08-21 23:00] VITALS: BP 121/50
[2019-08-22 03:00] VITALS: BP 148/73
[2019-08-22 07:00] VITALS: BP 120/72
[2019-08-22 07:11] LABS: BASO % 1 % (0-3); EOS # 0.2 x10^3/uL (0.0-0.7); EOS % 3 % (0-3); HEMOGLOBIN 9.4 g/dL (12.0-15.5); LYMPH # 1.9 x10^3/uL (1.0-4.8); LYMPH % 27 % (24-48); MEAN CORPUSCULAR HEMOGLOBIN 31 pg (25-35); MEAN CORPUSCULAR HGB CONC 35 g/dL (31-37); MEAN CORPUSCULAR VOLUME 89 fL (79-100); MONO # 0.6 x10^3/uL (0.0-1.1); MONO % 8 % (0-9); NEUT # 4.4 x10^3/uL (1.8-7.7); NEUT % 62 % (31-73); PLATELET COUNT 240 x10^3/uL (140-400); RED BLOOD COUNT 3.04 x10^6/uL (3.50-5.40); RED CELL DISTRIBUTION WIDTH 14.5 % (11.5-14.5); WHITE BLOOD COUNT 7.2 x10^3/uL (4.0-11.0)
[2019-08-22 08:17] LABS: CALCIUM 9.4 mg/dL (8.5-10.1); CREATININE 0.7 mg/dL (0.6-1.0); GFR 79.5; POTASSIUM 3.5 mmol/L (3.5-5.1)
[2019-08-22] MEDS: LACTOBACILLUS RHAMNOSUS GG 1 CAPSULE. PO SCH ×2 (08:50→20:39)
[2019-08-22] MEDS: CHOLECALCIFEROL (VITAMIN D3) 1,000 UNIT TABLET PO SCH (08:51)
[2019-08-22] MEDS: CYANOCOBALAMIN (VITAMIN B-12) 1,000 MCG TABLET. PO SCH (08:51)
[2019-08-22] MEDS: CALCIUM CARBONATE 500 MG TABLET PO SCH (08:51)
[2019-08-22] MEDS: POTASSIUM CHLORIDE 10 MEQ TABLET.ER. PO SCH (08:52)
[2019-08-22] MEDS: FUROSEMIDE 40 MG TABLET. PO SCH (08:52)
[2019-08-22] MEDS: OMEGA-3 FATTY ACIDS/FISH OIL 1,000 MG CAPSULE. PO SCH (08:52)
[2019-08-22] MEDS: traMADol 50 MG TABLET PO PRN (08:53)
[2019-08-22] MEDS: LOSARTAN POTASSIUM 50 MG TABLET. PO SCH (08:54)
--- NOTE | 2019-08-22 10:09 | PDOC ---
PROGRESS NOTES History of Present Illness History of Present Illness VTE Prophylaxis Ordered VTE Prophylaxis Devices: Yes VTE Pharmacological Prophylaxi: Contraindicated Assessment/Plan Assessment/Plan A/P: Bright red blood per rectum - painless, could be diverticular bleed vs hemorrhoids. hx rectal prolapse, hgb stable at 11.4 08-20 consult GI and general surgery hx a-fib , saw dr MASTERS IN THE PAST Urinary frequency - with positive leukocyte esterase she may well have a UTI, cont rx empiric rocephin HTN - will cont meds Osteoarthritis - will hold ASA and NSAIDs with her acute bleeding. Tylenol ok H/o Hysterectomy, PROLAPSED rectum surgery - general surgery following FEN - general diet, NPO now PPX - SCDs FULL CODE Dispo - inpatient for acute lower GI bleeding for further workup of bleeding consider ct abdomen ok to restart asa Copns[facility] cardiology, ekg, echo PROCEDURE NOTE PROCEDURE Procedure Colonoscopy bleeding anesthesia with propofol Findings Numerous diverticuli in sigmoid and descending colon with recent bleeding; recurrent polyp in transverse colon at prior tattoo site (10 mm)- removed by piecemeal snare polypectomy, small hemorrhoids Plan- resume diet monitor labs check on A fib DR SANABRIA 37 min pt exam, chart review, > 50% of time spent with exam, chart review, pt care coordination Vitals Vitals Vital Signs Date Time Temp Pulse Resp B/P (MAP) Pulse Ox O2 Delivery O2 Flow Rate FiO2 08/22/19 08:53 18 Room Air 08/22/19 07:00 97.9 72 120/72 (88) 98 97.9 08/21/19 13:05 4 Physical Exam General: Alert, Oriented X3, Cooperative Heart: Other (irr) Lungs: Clear Abdomen: Normal bowel sounds, Soft, No tenderness Extremities: No clubbing, No cyanosis Skin: No rashes, No breakdown Labs LABS EXAM: Two-dimensional and M-mode echocardiogram with Doppler and color Doppler. Other Information Quality : Average INDICATION Murmur HTN 2D DIMENSIONS RVDd 2.9 (2.9-3.5cm) Left Atrium(2D) 3.4 (1.6-4.0cm) IVSd 1.0 (0.7-1.1cm) Aortic Root(2D) 2.7 (2.0-3.7cm) LVDd 4.3 (3.9-5.9cm) LVOT Diameter 2.1 (1.8-2.4cm) PWd 1.0 (0.7-1.1cm) LVDs 2.5 (2.5-4.0cm) FS (%) 41.8 % SV 59.6 ml LVEF(%) 65.0 (>50%) Aortic Valve AoV Peak Stepan. 135.7cm/s AoV VTI 26.2cm AO Peak GR. 7.4mmHg LVOT Peak Stepan. 110.2cm/s LVOT VTI 24.28cm AO Mean GR. 4mmHg BRANDT (VMAX) 2.78cm2 BRANDT (VTI) 3.17cm2 Mitral Valve MV E Velocity 81.6cm/s MV DECEL TIME 232ms MV A Velocity 87.0cm/s MV E Mean Gr. 2mmHg MV PHT 67ms E/A Ratio 0.9 MV A Duration 95ms MVA (PHT) 3.27cm2 TDI E/Lateral E' 7.0 E/Medial E' 7.7 Pulmonary Valve PV Peak Velocity 108.5cm/s PV Peak Grad. 5mmHg RVOT VTI 16.5cm Tricuspid Valve TR P. Velocity 256cm/s RAP ESTIMATE 5mmHg TR Peak Gr. 26mmHg RVSP 31mmHg Pulmonary Vein S1 Velocity 59.4cm/s D2 Velocity 43.4cm/s LEFT VENTRICLE The left ventricle is normal size. There is normal left ventricular wall thickness. The left ventricular systolic function is normal and the ejection fraction is within normal range. The LV EF is 65% There is normal LV segmental wall motion. The left ventricular diastolic function and filling is normal for age. RIGHT VENTRICLE The right ventricle is normal size. There is normal right ventricular wall thickness. The right ventricular systolic function is normal. ATRIA The left atrium size is normal. The right atrium size is normal. The interatrial septum is intact with no evidence for an atrial septal defect or patent foramen ovale as noted on 2-D or Doppler imaging. AORTIC VALVE The aortic valve is normal in structure and function. Doppler and Color Flow revealed trace aortic regurgitation. There is no significant aortic valvular stenosis. MITRAL VALVE The mitral valve is normal in structure Doppler and Color Flow revealed mild mitral regurgitation. TRICUSPID VALVE The tricuspid valve is normal in structure and function. Doppler and Color Flow revealed mild tricuspid regurgitation. The PA pressure was estimated at 31 mmHg. PULMONIC VALVE The pulmonary valve is normal in structure and function. Doppler and Color Flow revealed no pulmonic valvular regurgitation. GREAT VESSELS The aortic root is normal in size. Normal pulmonary venous flow (Doppler). The IVC is normal in size and collapses >50% with inspiration. PERICARDIAL EFFUSION There is a trivial amount of pericardial effusion. Critical Notification Critical Value: No <Conclusion> The left ventricular systolic function is normal and the ejection fraction is within normal range. The LV EF is 65% The left atrium size is normal. The right atrium size is normal. Doppler and Color Flow revealed trace aortic regurgitation. Doppler and Color Flow revealed mild mitral regurgitation. Doppler and Color Flow revealed mild tricuspid regurgitation. The PA pressure was estimated at 31 mmHg. The pulmonary valve is normal in structure and function. There is a trivial amount of pericardial effusion. DICTATED and SIGNED BY: SOLEDAD MASTERS MD DATE: 10/07/161423 SPEC #: [id number] ARIANA: 08/19/19 STATUS: JEANNINE REQ #: [id number] RECD: 08/19/[address]: PROMISE LEBLANC DO SOURCE: VOID ENTR: 08/19/19 [facility] DR: YOUSIF BERMAN MD [facility]: ORDERED: URINE CULTURE Procedure Result URINE CULTURE Final Final report URINE CULTURE RES 1 Final Comment Mixed urogenital ji 10,000-25,000 colony forming units per mL Performed at: DA - [facility] [address] [facility] [address], [place], [place] [id number] Facing End Trimmer: MODESTA Holloway MD, Phone: [phone] Laboratory Tests Test 08/22/19 05:55 White Blood Count 7.2 x10^3/uL (4.0-11.0) Red Blood Count 3.04 x10^6/uL (3.50-5.40) Hemoglobin 9.4 g/dL (12.0-15.5) Hematocrit 27.0 % (36.0-47.0) Mean Corpuscular Volume 89 fL (79-100) Mean Corpuscular Hemoglobin 31 pg (25-35) Mean Corpuscular Hemoglobin Concent 35 g/dL (31-37) Red Cell Distribution Width 14.5 % (11.5-14.5) Platelet Count 240 x10^3/uL (140-400) Neutrophils (%) (Auto) 62 % (31-73) Lymphocytes (%) (Auto) 27 % (24-48) Monocytes (%) (Auto) 8 % (0-9) Eosinophils (%) (Auto) 3 % (0-3) Basophils (%) (Auto) 1 % (0-3) Neutrophils # (Auto) 4.4 x10^3/uL (1.8-7.7) Lymphocytes # (Auto) 1.9 x10^3/uL (1.0-4.8) Monocytes # (Auto) 0.6 x10^3/uL (0.0-1.1) Eosinophils # (Auto) 0.2 x10^3/uL (0.0-0.7) Basophils # (Auto) 0.0 x10^3/uL (0.0-0.2) Sodium Level 144 mmol/L (136-145) Potassium Level 3.5 mmol/L (3.5-5.1) Chloride Level 107 mmol/L (98-107) Carbon Dioxide Level 27 mmol/L (21-32) Anion Gap 10 (6-14) Blood Urea Nitrogen 7 mg/dL (7-20) Creatinine 0.7 mg/dL (0.6-1.0) Estimated GFR (Cockcroft-Gault) 79.5 Glucose Level 113 mg/dL (70-99) Calcium Level 9.4 mg/dL (8.5-10.1) Assessment and Plan Assessmemt and Plan Problems Medical Problems: (1) Rectal bleeding Status: Acute (2) Urinary tract infection Status: Acute Comment Review of Relevant I have reviewed the following items rhonda (where applicable) has been applied. Labs Laboratory Tests Test 08/20/19 16:40 08/21/19 05:10 08/22/19 05:55 Hemoglobin 10.3 g/dL (12.0-15.5) 9.3 g/dL (12.0-15.5) 9.4 g/dL (12.0-15.5) White Blood Count 6.3 x10^3/uL (4.0-11.0) 7.2 x10^3/uL (4.0-11.0) Red Blood Count 3.09 x10^6/uL (3.50-5.40) 3.04 x10^6/uL (3.50-5.40) Hematocrit 27.8 % (36.0-47.0) 27.0 % (36.0-47.0) Mean Corpuscular Volume 90 fL (79-100) 89 fL (79-100) Mean Corpuscular Hemoglobin 30 pg (25-35) 31 pg (25-35) Mean Corpuscular Hemoglobin Concent 33 g/dL (31-37) 35 g/dL (31-37) Red Cell Distribution Width 14.7 % (11.5-14.5) 14.5 % (11.5-14.5) Platelet Count 238 x10^3/uL (140-400) 240 x10^3/uL (140-400) Neutrophils (%) (Auto) 55 % (31-73) 62 % (31-73) Lymphocytes (%) (Auto) 33 % (24-48) 27 % (24-48) Monocytes (%) (Auto) 9 % (0-9) 8 % (0-9) Eosinophils (%) (Auto) 3 % (0-3) 3 % (0-3) Basophils (%) (Auto) 1 % (0-3) 1 % (0-3) Neutrophils # (Auto) 3.4 x10^3/uL (1.8-7.7) 4.4 x10^3/uL (1.8-7.7) Lymphocytes # (Auto) 2.1 x10^3/uL (1.0-4.8) 1.9 x10^3/uL (1.0-4.8) Monocytes # (Auto) 0.6 x10^3/uL (0.0-1.1) 0.6 x10^3/uL (0.0-1.1) Eosinophils # (Auto) 0.2 x10^3/uL (0.0-0.7) 0.2 x10^3/uL (0.0-0.7) Basophils # (Auto) 0.0 x10^3/uL (0.0-0.2) 0.0 x10^3/uL (0.0-0.2) Sodium Level 146 mmol/L (136-145) 144 mmol/L (136-145) Potassium Level 3.8 mmol/L (3.5-5.1) 3.5 mmol/L (3.5-5.1) Chloride Level 112 mmol/L (98-107) 107 mmol/L (98-107) Carbon Dioxide Level 24 mmol/L (21-32) 27 mmol/L (21-32) Anion Gap 10 (6-14) 10 (6-14) Blood Urea Nitrogen 6 mg/dL (7-20) 7 mg/dL (7-20) Creatinine 0.7 mg/dL (0.6-1.0) 0.7 mg/dL (0.6-1.0) Estimated GFR (Cockcroft-Gault) 79.5 79.5 Glucose Level 99 mg/dL (70-99) 113 mg/dL (70-99) Calcium Level 8.4 mg/dL (8.5-10.1) 9.4 mg/dL (8.5-10.1) Laboratory Tests Test 08/22/19 05:55 White Blood Count 7.2 x10^3/uL (4.0-11.0) Red Blood Count 3.04 x10^6/uL (3.50-5.40) Hemoglobin 9.4 g/dL (12.0-15.5) Hematocrit 27.0 % (36.0-47.0) Mean Corpuscular Volume 89 fL (79-100) Mean Corpuscular Hemoglobin 31 pg (25-35) Mean Corpuscular Hemoglobin Concent 35 g/dL (31-37) Red Cell Distribution Width 14.5 % (11.5-14.5) Platelet Count 240 x10^3/uL (140-400) Neutrophils (%) (Auto) 62 % (31-73) Lymphocytes (%) (Auto) 27 % (24-48) Monocytes (%) (Auto) 8 % (0-9) Eosinophils (%) (Auto) 3 % (0-3) Basophils (%) (Auto) 1 % (0-3) Neutrophils # (Auto) 4.4 x10^3/uL (1.8-7.7) Lymphocytes # (Auto) 1.9 x10^3/uL (1.0-4.8) Monocytes # (Auto) 0.6 x10^3/uL (0.0-1.1) Eosinophils # (Auto) 0.2 x10^3/uL (0.0-0.7) Basophils # (Auto) 0.0 x10^3/uL (0.0-0.2) Sodium Level 144 mmol/L (136-145) Potassium Level 3.5 mmol/L (3.5-5.1) Chloride Level 107 mmol/L (98-107) Carbon Dioxide Level 27 mmol/L (21-32) Anion Gap 10 (6-14) Blood Urea Nitrogen 7 mg/dL (7-20) Creatinine 0.7 mg/dL (0.6-1.0) Estimated GFR (Cockcroft-Gault) 79.5 Glucose Level 113 mg/dL (70-99) Calcium Level 9.4 mg/dL (8.5-10.1) Microbiology 08/19/19 Urine Culture - Final, Complete 08/19/19 Urine Culture Result 1 (ROSINA) - Final, Complete Medications Current Medications Ceftriaxone Sodium (Rocephin) 1 gm 1X ONCE IVP Last administered on 08/19/19at 21:53; Start 08/19/19 at 21:30; Stop 08/19/19 at 21:31; Status DC Ondansetron HCl (Zofran) 4 mg PRN Q8HRS PRN IV NAUSEA/VOMITING 1ST CHOICE; Start 08/19/19 at 21:15; Stop 08/19/19 at 22:58; Status DC Sodium Chloride 1,000 ml @ 125 mls/hr Q8H IV Last administered on 08/20/19at 21:42; Start 08/19/19 at 21:30; Stop 08/20/19 at 21:29; Status DC Acetaminophen (Tylenol) 650 mg PRN Q4HRS PRN PO FEVER; Start 08/19/19 at 21:15; Stop 08/19/19 at 23:03; Status DC Fish Oil (Fish Oil) 1,000 mg DAILY PO Last administered on 08/22/19 08:52; Start 08/20/19 at 09:00 Potassium Chloride (Klor-Con) 10 meq DAILY PO Last administered on 08/22/19 08:52; Start 08/20/19 at 09:00 Tramadol HCl (Ultram) 50 mg PRN Q6HRS PRN PO MODERATE PAIN 4-6 Last administered on 08/22/19 08:53; Start 08/19/19 at 22:45 Calcium Carbonate/ Glycine (Oscal) 500 mg DAILY PO Last administered on 08/22/19 08:51; Start 08/20/19 at 09:00 Vitamin D (Vitamin D3) 2,000 unit DAILY PO Last administered on 08/22/19 08:51; Start 08/20/19 at 09:00 Cyanocobalamin (Vitamin B-12) 500 mcg DAILY PO Last administered on 08/22/19 08:51; Start 08/20/19 at 09:00 Losartan Potassium (Cozaar) 100 mg DAILY PO Last administered on 08/21/19 09:00; Start 08/20/19 at 09:00 Ceftriaxone Sodium (Rocephin) 1 gm Q24H IVP Last administered on 08/20/19at 21:41; Start 08/20/19 at 22:00 Hydrochlorothiazide (Microzide) 12.5 mg DAILY PO ; Start 08/20/19 at 09:00; St op 08/20/19 at 15:28; Status DC Ondansetron HCl (Zofran) 4 mg PRN Q6HRS PRN IV NAUSEA/VOMITING 1ST CHOICE; Start 08/19/19 at 23:00 Acetaminophen (Tylenol) 650 mg PRN Q6HRS PRN PO MILD PAIN / TEMP Last administered on 08/22/19 08:49; Start 08/19/19 at 23:00 Losartan Potassium (Cozaar) 100 mg 1X ONCE PO Last administered on 08/19/19at 23:27; Start 08/19/19 at 23:30; Stop 08/19/19 at 23:31; Status DC Pantoprazole Sodium (Protonix) 40 mg DAILYAC PO Last administered on 08/20/19 11:36; Start 08/20/19 at 10:00; Stop 08/20/19 at 15:27; Status DC Lactobacillus Rhamnosus (Culturelle) 1 cap BID PO Last administered on 08/22/19 08:50; Start 08/20/19 at 21:00 Polyethylene Glycol (miraLAX Powder BULK BOTTLE) 238 gm 1X ONCE PO Last administered on 08/20/19 17:04; Start 08/20/19 at 16:00; Stop 08/20/19 at 16:01; Status DC Bisacodyl (Dulcolax Tab) 10 mg 1X ONCE PO Last administered on 08/20/19 17:07; Start 08/20/19 at 15:30; Stop 08/20/19 at 15:31; Status DC Bisacodyl (Dulcolax Tab) 10 mg 1X ONCE PO Last administered on 08/20/19 18:56; Start 08/20/19 at 18:00; Stop 08/20/19 at 18:01; Status DC Pantoprazole Sodium (PROTONIX VIAL for IV PUSH) 40 mg DAILYAC IVP Last administered on 10/2/19at 08:27; Start 08/21/19 at 07:30; Stop 08/21/19 at 13:44; Status DC Furosemide (Lasix) 40 mg DAILY PO Last administered on 08/22/19at 08:52; Start 08/20/19 at 15:30 Ondansetron HCl (Zofran) 4 mg PRN Q6HRS PRN IV NAUSEA/VOMITING; Start 08/21/19 at 07:00; Stop 08/22/19 at 06:59; Status DC Fentanyl Citrate (Fentanyl 2ml Vial) 25 mcg PRN Q5MIN PRN IV MILD PAIN 1-3; Start 08/21/19 at 07:00; Stop 08/22/19 at 06:59; Status DC Fentanyl Citrate (Fentanyl 2ml Vial) 50 mcg PRN Q5MIN PRN IV MODERATE TO SEVERE PAIN; Start 08/21/19 at 07:00; Stop 08/22/19 at 06:59; Status DC Morphine Sulfate (Morphine Sulfate) 1 mg PRN Q10MIN PRN IV SEVERE PAIN 7-10; Start 08/21/19 at 07:00; Stop 08/22/19 at 06:59; Status DC Ringer's Solution 1,000 ml @ 30 mls/hr Q24H IV Last administered on 08/21/19at 12:06; Start 08/21/19 at 07:00; Stop 08/21/19 at 18:59; Status DC Lidocaine HCl (Xylocaine-Mpf 1% 2ml Vial) 2 ml PRN 1X PRN ID PRIOR TO IV START; Start 08/21/19 at 07:00; Stop 08/22/19 at 06:59; Status DC Hydromorphone HCl (Dilaudid) 0.5 mg PRN Q10MIN PRN IV SEV PAIN, Second choice; Start 08/21/19 at 07:00; Stop 08/22/19 at 06:59; Status DC Prochlorperazine Edisylate (Compazine) 5 mg PACU PRN PRN IV NAUSEA, MRX1; St art 08/21/19 at 07:00; Stop 08/22/19 at 06:59; Status DC Zolpidem Tartrate (Ambien) 5 mg PRN QHS PRN PO INSOMNIA Last administered on 08/21/19at 21:09; Start 08/20/19 at 21:15 Propofol 40 ml @ As Directed STK-MED ONCE IV ; Start 08/21/19 at 12:25; Stop at 12:26; Status DC Lidocaine HCl (Lidocaine Pf 2% Vial) 5 ml STK-MED ONCE .ROUTE ; Start 08/21/19 at 12:25; Stop 08/21/19 at 12:26; Status DC Active Scripts Active Reported Losartan Potassium 100 Mg Tablet 100 Mg PO HS PRN [Q10] 1 Cap PO DAILY Multivitamins (Multivitamin) 1 Each Tablet 1 Tab PO DAILY Tylenol (Acetaminophen) 325 Mg Tablet 650 Mg PO Q6HRS Ybcayqrjat-Mrenrljqqqg-Iss Tab (Gluc/Jameson-Msm#2/C/D3/Rhys/Born) 1 Each Tablet 1 Each PO BID Calcium (Calcium Carbonate) 600 Mg Tablet 600 Mg PO DAILY Tizanidine Hcl 4 Mg Tablet 1 Tab PO QHS Fish Oil 1,400 Mg Softgel ([place]-3/Dha/Epa/Fish Oil) 1 Each Capsule. 1 Each PO DAILY Vitamin D-3 (Cholecalciferol (Vitamin D3)) 2,000 Unit Capsule 2,000 Unit PO DAILY B-12 (Cyanocobalamin (Vitamin B-12)) 500 Mcg Tablet 1,000 Mcg PO DAILY Tramadol Hcl 50 Mg Tablet 50 Mg PO Q6HRS PRN Meloxicam 15 Mg Tablet 0.5 Tab PO DAILY Aspir-Low (Aspirin) 81 Mg Tablet.dr 1 Tab PO HS Potassium Chloride 10 Meq Tab.sr.24h 10 Meq PO DAILY Furosemide 40 Mg Tablet 1 Tab PO DAILY Vitals/I & O Vital Sign - Last 24 Hours 08/21/19 08/21/19 08/21/19 08/21/19 11:00 12:02 12:02 13:05 Temp 97.9 97.6 97.6 97.9 97.6 97.6 Pulse 80 83 83 Resp 18 18 18 B/P (MAP) 144/73 (96) 135/60 Pulse Ox 99 98 98 O2 Delivery Room Air Room Air Room Air O2 Flow Rate 4 08/21/19 08/21/19 08/21/19 08/21/19 13:20 13:33 14:57 15:00 Temp 98.9 97.3 98.9 97.3 Pulse 93 87 87 82 Resp 18 18 16 B/P (MAP) 147/73 141/86 141/86 138/75 (96) Pulse Ox 98 98 98 O2 Delivery Room Air Room Air Room Air 08/21/19 08/21/19 08/21/19 08/22/19 19:00 20:00 23:00 03:00 Temp 97.9 97.6 97.9 97.9 97.6 97.9 Pulse 79 83 87 Resp 20 18 20 B/P (MAP) 144/86 (105) 121/50 (73) 148/73 (98) Pulse Ox 98 98 97 O2 Delivery Room Air Room Air Room Air Room Air 08/22/19 08/22/19 07:00 08:53 Temp 97.9 97.9 Pulse 72 Resp 18 18 B/P (MAP) 120/72 (88) Pulse Ox 98 O2 Delivery Room Air Room Air Intake and Output 08/21/19 08/21/19 08/22/19 15:00 23:00 07:00 Intake Total 1400 ml 360 ml 300 ml Balance 1400 ml 360 ml 300 ml ZOE REYNOLDS MD Aug 22, 2019 10:09
--- NOTE | 2019-08-22 10:24 | PDOC ---
SURGICAL PROGRESS NOTE Subjective no further bleeding since scope hoping to go home Vital Signs Vital Signs Date Time Temp Pulse Resp B/P (MAP) Pulse Ox O2 Delivery O2 Flow Rate FiO2 08/22/19 08:53 18 Room Air 08/22/19 07:00 97.9 72 120/72 (88) 98 97.9 08/21/19 13:05 4 I&O Intake and Output 08/22/19 06:59 Intake Total 2060 ml Balance 2060 ml Intake Oral 660 ml IV Total 1400 ml # Voids 3 # Bowel Movements 1 General: Alert, Oriented X3, Cooperative, No acute distress Abdomen: Soft, No tenderness Labs Laboratory Tests Test 08/20/19 16:40 08/21/19 05:10 08/22/19 05:55 Hemoglobin 10.3 g/dL (12.0-15.5) 9.3 g/dL (12.0-15.5) 9.4 g/dL (12.0-15.5) White Blood Count 6.3 x10^3/uL (4.0-11.0) 7.2 x10^3/uL (4.0-11.0) Red Blood Count 3.09 x10^6/uL (3.50-5.40) 3.04 x10^6/uL (3.50-5.40) Hematocrit 27.8 % (36.0-47.0) 27.0 % (36.0-47.0) Mean Corpuscular Volume 90 fL (79-100) 89 fL (79-100) Mean Corpuscular Hemoglobin 30 pg (25-35) 31 pg (25-35) Mean Corpuscular Hemoglobin Concent 33 g/dL (31-37) 35 g/dL (31-37) Red Cell Distribution Width 14.7 % (11.5-14.5) 14.5 % (11.5-14.5) Platelet Count 238 x10^3/uL (140-400) 240 x10^3/uL (140-400) Neutrophils (%) (Auto) 55 % (31-73) 62 % (31-73) Lymphocytes (%) (Auto) 33 % (24-48) 27 % (24-48) Monocytes (%) (Auto) 9 % (0-9) 8 % (0-9) Eosinophils (%) (Auto) 3 % (0-3) 3 % (0-3) Basophils (%) (Auto) 1 % (0-3) 1 % (0-3) Neutrophils # (Auto) 3.4 x10^3/uL (1.8-7.7) 4.4 x10^3/uL (1.8-7.7) Lymphocytes # (Auto) 2.1 x10^3/uL (1.0-4.8) 1.9 x10^3/uL (1.0-4.8) Monocytes # (Auto) 0.6 x10^3/uL (0.0-1.1) 0.6 x10^3/uL (0.0-1.1) Eosinophils # (Auto) 0.2 x10^3/uL (0.0-0.7) 0.2 x10^3/uL (0.0-0.7) Basophils # (Auto) 0.0 x10^3/uL (0.0-0.2) 0.0 x10^3/uL (0.0-0.2) Sodium Level 146 mmol/L (136-145) 144 mmol/L (136-145) Potassium Level 3.8 mmol/L (3.5-5.1) 3.5 mmol/L (3.5-5.1) Chloride Level 112 mmol/L (98-107) 107 mmol/L (98-107) Carbon Dioxide Level 24 mmol/L (21-32) 27 mmol/L (21-32) Anion Gap 10 (6-14) 10 (6-14) Blood Urea Nitrogen 6 mg/dL (7-20) 7 mg/dL (7-20) Creatinine 0.7 mg/dL (0.6-1.0) 0.7 mg/dL (0.6-1.0) Estimated GFR (Cockcroft-Gault) 79.5 79.5 Glucose Level 99 mg/dL (70-99) 113 mg/dL (70-99) Calcium Level 8.4 mg/dL (8.5-10.1) 9.4 mg/dL (8.5-10.1) Laboratory Tests Test 08/22/19 05:55 White Blood Count 7.2 x10^3/uL (4.0-11.0) Red Blood Count 3.04 x10^6/uL (3.50-5.40) Hemoglobin 9.4 g/dL (12.0-15.5) Hematocrit 27.0 % (36.0-47.0) Mean Corpuscular Volume 89 fL (79-100) Mean Corpuscular Hemoglobin 31 pg (25-35) Mean Corpuscular Hemoglobin Concent 35 g/dL (31-37) Red Cell Distribution Width 14.5 % (11.5-14.5) Platelet Count 240 x10^3/uL (140-400) Neutrophils (%) (Auto) 62 % (31-73) Lymphocytes (%) (Auto) 27 % (24-48) Monocytes (%) (Auto) 8 % (0-9) Eosinophils (%) (Auto) 3 % (0-3) Basophils (%) (Auto) 1 % (0-3) Neutrophils # (Auto) 4.4 x10^3/uL (1.8-7.7) Lymphocytes # (Auto) 1.9 x10^3/uL (1.0-4.8) Monocytes # (Auto) 0.6 x10^3/uL (0.0-1.1) Eosinophils # (Auto) 0.2 x10^3/uL (0.0-0.7) Basophils # (Auto) 0.0 x10^3/uL (0.0-0.2) Sodium Level 144 mmol/L (136-145) Potassium Level 3.5 mmol/L (3.5-5.1) Chloride Level 107 mmol/L (98-107) Carbon Dioxide Level 27 mmol/L (21-32) Anion Gap 10 (6-14) Blood Urea Nitrogen 7 mg/dL (7-20) Creatinine 0.7 mg/dL (0.6-1.0) Estimated GFR (Cockcroft-Gault) 79.5 Glucose Level 113 mg/dL (70-99) Calcium Level 9.4 mg/dL (8.5-10.1) Problem List Problems Medical Problems: (1) Rectal bleeding Status: Acute (2) Urinary tract infection Status: Acute Assessment/Plan hgb stable no surgical plans colonoscopy report noted DUGLAS TORRES [employer] Aug 22, 2019 10:24
--- NOTE | 2019-08-22 10:24 | PDOC ---
Subjective: Subjective: Eating but doesn't care for the food. No bleeding. Recalls h/o A Fib - says her doctor ran some tests once - indicates she wore a monitor on her finger and now uses a CPAP. Would like to go home. Objective: Vital Signs: Vital Signs Date Time Temp Pulse Resp B/P (MAP) Pulse Ox O2 Delivery O2 Flow Rate FiO2 08/22/19 08:53 18 Room Air 08/22/19 07:00 97.9 72 120/72 (88) 98 97.9 08/21/19 13:05 4 Labs: Laboratory Tests Test 08/22/19 05:55 White Blood Count 7.2 x10^3/uL Red Blood Count 3.04 x10^6/uL Hemoglobin 9.4 g/dL Hematocrit 27.0 % Mean Corpuscular Volume 89 fL Mean Corpuscular Hemoglobin 31 pg Mean Corpuscular Hemoglobin Concent 35 g/dL Red Cell Distribution Width 14.5 % Platelet Count 240 x10^3/uL Neutrophils (%) (Auto) 62 % Lymphocytes (%) (Auto) 27 % Monocytes (%) (Auto) 8 % Eosinophils (%) (Auto) 3 % Basophils (%) (Auto) 1 % Neutrophils # (Auto) 4.4 x10^3/uL Lymphocytes # (Auto) 1.9 x10^3/uL Monocytes # (Auto) 0.6 x10^3/uL Eosinophils # (Auto) 0.2 x10^3/uL Basophils # (Auto) 0.0 x10^3/uL Sodium Level 144 mmol/L Potassium Level 3.5 mmol/L Chloride Level 107 mmol/L Carbon Dioxide Level 27 mmol/L Anion Gap 10 Blood Urea Nitrogen 7 mg/dL Creatinine 0.7 mg/dL Estimated GFR (Cockcroft-Gault) 79.5 Glucose Level 113 mg/dL Calcium Level 9.4 mg/dL Imaging: EGD and colonoscopy 08/21/19 E- small HH, no ulcers G- bile gastritis, some erosions, no ulcers - no bleeding (bx) D- normal Numerous diverticuli in sigmoid and descending colon with recent bleeding Recurrent polyp in transverse colon at prior tattoo site (10 mm) - removed by piecemeal snare polypectomy, small hemorrhoids PE: GEN: NAD LUNGS: room air HEART: irregularly irregular ABD: S/ND/NT NEURO/PSYCH: A & O 3 A/P: Diverticular bleed A Fib, UTI Anemia - stable -- Tolerating diet w/o further bleeding, Hgb stable. 'Scopes as above - follow-up on biopsy results. DC per primary, should have some sort of follow-up re: A Fib (unclear if this is a chronic issue). Reviewed w/ Dr. Nixon oliveira to resume ASA from GI standpoint. JOHNNY MENDEZ Aug 22, 2019 10:24
[2019-08-22 11:00] VITALS: BP 142/63
[2019-08-22] MEDS: PANTOPRAZOLE 40 MG TABLET.DR. PO SCH (11:00)
[2019-08-22] MEDS ORDERED: NON FORMULARY ITEM (Losartan Potassium 100 MG) PO PRN (11:45)
[2019-08-22] MEDS ORDERED: MELOXICAM 7.5 MG TABLET PO SCH ×2 (12:00→21:00)
[2019-08-22] MEDS: MULTIVITAMIN with MINERAL TABLET. PO SCH (12:00)
[2019-08-22] MEDS: ACETAMINOPHEN 325 MG TABLET. PO SCH ×2 (12:00→17:45)
[2019-08-22] MEDS ORDERED: FUROSEMIDE 40 MG TABLET. PO SCH (12:00)
--- NOTE | 2019-08-22 12:17 | PDOC2 ---
COREY TORREZ TOWBOAT PILOT 08/22/19 1217: CARDIAC CONSULT DATE OF CONSULT Date of Consult DATE: 08/22/19 TIME: 12:12 REASON FOR CONSULT Reason for Consult: AFIB history, now with GI bleed REFERRING PHYSICIAN Referring Physician: Dr. Clarke HISTORY OF PRESENT ILLNESS HISTORY OF PRESENT ILLNESS This is an 84 yo female, with a history of rectal prolapse, who presented secondary to rectal bleeding. Was noted in AFIB during colonoscopy. Has h/o FAN B. Diagnosed [address] Mccarthy. Had Holter monitor which showed SR with PACs and PVCs. Had echo at that time which showed preserved LV systolic function. ASA for stroke prevention was recommended. Patient denies any chest pain, palpitations, dizziness, diaphoresis, or nausea/vomiting. Does reports some SHEPARD, althought this is somewhat chronic in nature. No h/o GIB. PAST MEDICAL HISTORY Cardiovascular: AFIB, HTN Pulmonary: Other (VINICIUS with CPAP) GI: Diverticulosis, Other (rectal prolapse ) Musculoskeletal: Osteoarthritis PAST SURGICAL HISTORY Past Surgical History: Appendectomy, Cholecystectomy, Hysterectomy, Other (rectal prolapse repair ) FAMILY HISTORY Family History: Coronary Artery Disease (father ) SOCIAL HISTORY Smoke: No ALCOHOL: none Drugs: None Lives: Alone ALLERGIES ALLERGIES: Coded Allergies: No Known Drug Allergies (Unverified , 08/21/19) ROS Review of System 14 point ROS conducted with pertinent positives noted above in HPI PHYSICAL EXAM General: Alert, Oriented X3, Cooperative, No acute distress HEENT: Atraumatic, Mucous membr. moist/pink Lungs: Clear to auscultation, Normal air movement Heart: Other (AFIB ) Abdomen: Soft, No tenderness Extremities: No edema, Normal pulses Skin: No significant lesion Neuro: Normal speech, Sensation intact Psych/Mental Status: Mental status NL, Mood NL MUSCULOSKELETAL: Osteoarthritic changes both hands VITALS/I&O VITALS/I&O: Vital Signs Date Time Temp Pulse Resp B/P (MAP) Pulse Ox O2 Delivery O2 Flow Rate FiO2 08/22/19 09:53 16 Room Air 08/22/19 07:00 97.9 72 120/72 (88) 98 97.9 08/21/19 13:05 4 I & O 08/21/19 08/21/19 08/22/19 15:00 23:00 07:00 Intake Total 1400 ml 360 ml 300 ml Balance 1400 ml 360 ml 300 ml LABS Lab: Laboratory Tests Test 08/22/19 05:55 White Blood Count 7.2 x10^3/uL (4.0-11.0) Red Blood Count 3.04 x10^6/uL (3.50-5.40) L Hemoglobin 9.4 g/dL (12.0-15.5) L Hematocrit 27.0 % (36.0-47.0) L Mean Corpuscular Volume 89 fL (79-100) Mean Corpuscular Hemoglobin 31 pg (25-35) Mean Corpuscular Hemoglobin Concent 35 g/dL (31-37) Red Cell Distribution Width 14.5 % (11.5-14.5) Platelet Count 240 x10^3/uL (140-400) Neutrophils (%) (Auto) 62 % (31-73) Lymphocytes (%) (Auto) 27 % (24-48) Monocytes (%) (Auto) 8 % (0-9) Eosinophils (%) (Auto) 3 % (0-3) Basophils (%) (Auto) 1 % (0-3) Neutrophils # (Auto) 4.4 x10^3/uL (1.8-7.7) Lymphocytes # (Auto) 1.9 x10^3/uL (1.0-4.8) Monocytes # (Auto) 0.6 x10^3/uL (0.0-1.1) Eosinophils # (Auto) 0.2 x10^3/uL (0.0-0.7) Basophils # (Auto) 0.0 x10^3/uL (0.0-0.2) Sodium Level 144 mmol/L (136-145) Potassium Level 3.5 mmol/L (3.5-5.1) Chloride Level 107 mmol/L (98-107) Carbon Dioxide Level 27 mmol/L (21-32) Anion Gap 10 (6-14) Blood Urea Nitrogen 7 mg/dL (7-20) Creatinine 0.7 mg/dL (0.6-1.0) Estimated GFR (Cockcroft-Gault) 79.5 Glucose Level 113 mg/dL (70-99) H Calcium Level 9.4 mg/dL (8.5-10.1) Laboratory Tests 08/22/19 05:55 Laboratory Tests 08/22/19 05:55 ECHOCARDIOGRAM ECHOCARDIOGRAM Conclusion> The left ventricular systolic function is normal and the ejection fraction is within normal range. The LV EF is 65% The left atrium size is normal. The right atrium size is normal. Doppler and Color Flow revealed trace aortic regurgitation. Doppler and Color Flow revealed mild mitral regurgitation. Doppler and Color Flow revealed mild tricuspid regurgitation. The PA pressure was estimated at 31 mmHg. The pulmonary valve is normal in structure and function. There is a trivial amount of pericardial effusion. DATE: 10/07/16 1424 ASSESSMENT/PLAN ASSESSMENT/PLAN 1. GI, diverticular bleed; colonoscopy noted with multiple diverticuli with recent bleeding 2. AFIB, ? paroxysmal. Was noted about [address] Mccarthy. Holter monitor at that time showed SR with PAC's and PVC's. ASA was recommended for s troke prevention. Presently AFIB per EKG, rate has been controlled. 3. Hypertension; controlled 4. VINICIUS with CPAP 5. 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 Anemia; hgb stable 7. ? UTI Recommendations Echo to assess LV systolic function TSH Transfer to for telemetry monitoring Add low-dose BB for rate control No OAC given GI bleeding. ASA for stroke prevention when okay with GI Consider outpatient ischemic evaluation given SHEPARD Consider outpatient referral for Watchman GLENDY closure device EVERARDO FAGAN MD 08/22/19 1749: CARDIAC CONSULT ASSESSMENT/PLAN ASSESSMENT/PLAN .(1) COREY TORREZ APRN Aug 22, 2019 12:17 EVERARDO FAGAN MD Aug 22, 2019 17:49 1: Patient seen and examined. Agree with above nurse practitioner note. 84-year-old woman with GI bleeding and intermittent atrial fibrillation. On examination she is asymptomatic and not in any acute heart failure Labs and medications reviewed I had a long discussion with the patient regarding the pathophysiology of atrial fibrillation, the risks and benefits to anticoagulation in the setting of GI bleeding. At this present time we'll defer any anticoagulation or antiplatelet therapy. After stabilization over the next 2 weeks the patient wishes to be considered for outpatient evaluation for a watchman procedure which I think is fairly reasonable. Prior to referral for the watchman we will plan for a two-week event monitor and determine her atrial fibrillation burden.
--- NOTE | 2019-08-22 12:26 | EKG ---
[facility] [address] [place] [address] Test Date: 2019-08-22 Test Time: 13:21:46 Pat Name: JORGE CHAVIRA Department: Room: 578 1 Gender: F Intermediate Card Tender: RADHAMES : 1935 Requested By: ZOE REYNOLDS Order Number: [id number] Reading MD: Epi Foley Measurements Intervals [place] Rate: 95 P: [place]: QRS: -25 QRSD: 92 T: 90 QT: 362 QTc: 458 Interpretive Statements ATRIAL FIBRILLATION VENTRICULAR PREMATURE COMPLEX(ES) LEFTWARD AXIS QRS(T) CONTOUR ABNORMALITY CONSISTENT WITH POSSIBLE OLD ANTEROSEPTAL INFARCT ST & T ABNORMALITY Electronically Signed On 08-30-2019 16:43:31 CDT by Epi Foley
--- NOTE | 2019-08-22 14:07 | PATHOLOGY ---
[facility] Accession Number: [id number] . 01 Material submitted: . PART A: stomach - ANTRAL BIOPSY PART B: colon - TRANSVERSE COLON POLYP BIOPSY. Modifiers: transverse PART C: colon - DISTAL TRANSVERSE COLON POLYP BIOPSY. Modifiers: distal, transverse . 01 Clinical history: . GI bleed . 02 Diagnosis: A. Gastric biopsies, antrum: - Chronic gastritis, mild. . B. Colon biopsies, transverse colon polyp: - Hyperplastic polyp. . C. Colon biopsies, distal transverse colon polyp: - Mixed hyperplastic/adenomatous polyp. . (JPM:dinah; 08/22/2019) [facility] 08/22/2019 1211 Local . 02 Comment: Sections of the gastric biopsy reveal segments of gastric antral and gastric body mucosa showing congestion and mild chronic inflammation. A properly controlled immunoperoxidase stain for Helicobacter is negative for Helicobacter organisms. . The transverse colon polyps show no evidence of high-grade dysplasia or malignancy. . (JPM:dinah; 08/22/2019) . Special stain performed: Immunoperoxidase stain for Helicobacter on A1. . 02 Electronically signed: . Travon Goodman MD, Pathologist NPI- [id number] . 01 Gross description: . A. Received in formalin labeled "Miriam, Vera, antral BX gastritis," are 2 segments of harrison soft tissue measuring 1.2 x 0.2 x 0.1 cm in aggregate dimensions and ranging from 0.4 to 0.7 cm in maximum dimension. The specimen is submitted entirely in cassette A1. . B. Received in formalin labeled "Miriam, Vera, transverse colon polyp BX," are 2 segments of harrison soft tissue measuring 0.5 x 0.3 x 0.2 cm in aggregate dimensions and ranging from 0.2 to 0.3 cm in maximum dimension. The specimen is submitted entirely in cassette B1. . C. Received in formalin labeled "Miriam, Vera, distal transverse colon polyp BX," are 2 segments of possible harrison soft tissue measuring 0.8 x 0.2 x 0.2 cm in aggregate dimensions and ranging from 0.3 to 0.5 cm in maximum dimension. The specimen is submitted entirely in cassette C1. (TSD; 08/21/2019) TOB/TOB 08/21/2019 2254 Local . 02 Pathologist provided ICD-10: K29.50, K63.5, D12.3 . 02 CPT . 875996, 711197, 515757, C43698 Specimen Comment: A courtesy copy of this report has been sent to Specimen Comment: [phone], , . Specimen Comment: Report sent to ,DR BERMAN / DR LEBLANC Performed at: 01 [facility] [address], [place] [id number] MD Omero Lipscomb MD Phone: [phone] Performed at: 02 [facility] [address] [place], [place] [id number] MD Travon Goodman MD Phone: [phone]
--- NOTE | 2019-08-22 14:32 | CARD ---
MR#: [id number] Date of Study: 08/22/2019 Ordering Physician: ZOE REYNOLDS, Referring Physician: ZEO REYNOLDS Tech: Germaine Hess RDCS APPROVED REPORT EXAM: Two-dimensional and M-mode echocardiogram with Doppler and color Doppler. Other Information Quality : AverageHR: 80bpm Rhythm : Atrial Fibrillation INDICATION Atrial Fibrillation 2D DIMENSIONS RVDd3.0 (2.9-3.5cm)Left Atrium(2D)3.7 (1.6-4.0cm) IVSd1.1 (0.7-1.1cm)Aortic Root(2D)2.5 (2.0-3.7cm) LVDd4.3 (3.9-5.9cm)LVOT Diameter2.1 (1.8-2.4cm) PWd1.0 (0.7-1.1cm)LVDs3.0 (2.5-4.0cm) FS (%) 30.8 %SV48.1 ml LVEF(%)58.8 (>50%) M-Mode DIMENSIONS Left Atrium(MM)3.64 (2.5-4.0cm)Aortic Root3.55 (2.2-3.7cm) Aortic Valve AoV Peak Stepan.140.8cm/sAoV VTI25.5cm AO Peak GR.7.9mmHgLVOT Peak Stepan.82.8cm/s AO Mean GR.3mmHgAVA (VMAX)2.09cm2 BRANDT (VTI)2.10cm2 Mitral Valve MV E Tcjdazvv693.4cm/sMV DECEL GGQW486di MV A Qqyujefy12.1cm/sE/A Ratio4.0 Pulmonary Valve PV Peak Tskzehuk07.9cm/s Tricuspid Valve TR P. Cckebkji769tk/sRAP YSSFCODC6luCo TR Peak Gr.47qwPxUJUH14viAg LEFT VENTRICLE The left ventricle is normal size. There is borderline to mild concentric left ventricular hypertroph y. The left ventricular systolic function is normal and the ejection fraction is within normal range. The Ejection Fraction is 55-60%. There is normal LV segmental wall motion. Transmitral Doppler flow pattern is Grade II-pseudonormal filling dynamics. RIGHT VENTRICLE The right ventricle is normal size. There is normal right ventricular wall thickness. The right ventr icular systolic function is normal. ATRIA The left atrium size is normal. The right atrium size is normal. The interatrial septum is intact wit h no evidence for an atrial septal defect or patent foramen ovale as noted on 2-D or Doppler imaging. AORTIC VALVE The aortic valve is normal in structure and function. The aortic valve is trileaflet. Doppler and Col or Flow revealed trace aortic regurgitation. There is no significant aortic valvular stenosis. There is no aortic valvular vegetation. MITRAL VALVE The mitral valve is thickened but opens well. There is no evidence of mitral valve prolapse. There is no mitral valve stenosis. Doppler and Color-flow revealed mild mitral regurgitation. TRICUSPID VALVE The tricuspid valve is normal in structure and function. Doppler and Color Flow revealed trace tricus pid regurgitation. The PA pressure was estimated at 33 mmHg. There is no tricuspid valve prolapse or vegetation. There is no tricuspid valve stenosis. PULMONIC VALVE The pulmonic valve is not well visualized. GREAT VESSELS The aortic root is normal in size. The ascending aorta is normal in size. The IVC is normal in size a nd collapses >50% with inspiration. PERICARDIAL EFFUSION There is no evidence of significant pericardial effusion. Critical Notification Critical Value: No <Conclusion> The left ventricular systolic function is normal and the ejection fraction is within normal range. Th e Ejection Fraction is 55-60%. There is normal LV segmental wall motion. Signed by : Quinn Ballard, Electronically Approved : 08/22/2019 14:32:02
[2019-08-22 15:00] VITALS: BP 177/72
[2019-08-22] MEDS: METOPROLOL TART IMMED RELEASE 25 MG TABLET. PO SCH ×2 (17:45→20:40)
[2019-08-22] MEDS: FERROUS SULFATE 325 MG TABLET. PO SCH (17:45)
[2019-08-22 19:48] VITALS: BP 138/66
[2019-08-22] MEDS ORDERED: LOSARTAN POTASSIUM 50 MG TABLET. PO SCH (21:00)
[2019-08-22] MEDS ORDERED: NON FORMULARY ITEM (Gluc/Chon-Msm#2/C/D3/Mang/Born (Glucosamin-Chondroitin-Msm Tab) 1 EACH PO SCH (21:00)
[2019-08-22] MEDS ORDERED: ASPIRIN ENTERIC COATED 81 MG TABLET.DR. PO SCH (21:00)
[2019-08-22] MEDS ORDERED: tiZANidine 4 MG TABLET. PO SCH (21:00)
[2019-08-22] MEDS: cefTRIAXone IV Push 1 GM VIAL. IVP SCH (22:00)
[2019-08-22] MEDS: ZOLPIDEM 5 MG TABLET. PO PRN (22:16)
[2019-08-22 23:24] VITALS: BP 93/48
[2019-08-23 01:11] LABS: CHOLESTEROL/HDL RATIO 3.8
[2019-08-23] MEDS: ACETAMINOPHEN 325 MG TABLET. PO SCH ×3 (01:44→12:00)
[2019-08-23 03:06] VITALS: BP 100/50
[2019-08-23 07:21] VITALS: BP 154/67
--- NOTE | 2019-08-23 08:03 | PDOC ---
SURGICAL PROGRESS NOTE Subjective no further bleeding tolerating diet, does not like food here much no n/v no abd pain cardiac WELLS in progress Vital Signs Vital Signs Date Time Temp Pulse Resp B/P (MAP) Pulse Ox O2 Delivery O2 Flow Rate FiO2 08/23/19 07:21 98.2 77 20 154/67 (96) 99 Room Air 98.2 08/22/19 20:00 4.0 I&O Intake and Output 08/23/19 07:00 Intake Total 400 ml Output Total 6 ml Balance 394 ml Intake Oral 400 ml Output Urine Total 6 ml # Voids 5 PATIENT HAS A STROUD: No General: Alert, Oriented X3, Cooperative, No acute distress Abdomen: Soft, No tenderness Labs Laboratory Tests Test 08/22/19 05:55 White Blood Count 7.2 x10^3/uL (4.0-11.0) Red Blood Count 3.04 x10^6/uL (3.50-5.40) Hemoglobin 9.4 g/dL (12.0-15.5) Hematocrit 27.0 % (36.0-47.0) Mean Corpuscular Volume 89 fL (79-100) Mean Corpuscular Hemoglobin 31 pg (25-35) Mean Corpuscular Hemoglobin Concent 35 g/dL (31-37) Red Cell Distribution Width 14.5 % (11.5-14.5) Platelet Count 240 x10^3/uL (140-400) Neutrophils (%) (Auto) 62 % (31-73) Lymphocytes (%) (Auto) 27 % (24-48) Monocytes (%) (Auto) 8 % (0-9) Eosinophils (%) (Auto) 3 % (0-3) Basophils (%) (Auto) 1 % (0-3) Neutrophils # (Auto) 4.4 x10^3/uL (1.8-7.7) Lymphocytes # (Auto) 1.9 x10^3/uL (1.0-4.8) Monocytes # (Auto) 0.6 x10^3/uL (0.0-1.1) Eosinophils # (Auto) 0.2 x10^3/uL (0.0-0.7) Basophils # (Auto) 0.0 x10^3/uL (0.0-0.2) Sodium Level 144 mmol/L (136-145) Potassium Level 3.5 mmol/L (3.5-5.1) Chloride Level 107 mmol/L (98-107) Carbon Dioxide Level 27 mmol/L (21-32) Anion Gap 10 (6-14) Blood Urea Nitrogen 7 mg/dL (7-20) Creatinine 0.7 mg/dL (0.6-1.0) Estimated GFR (Cockcroft-Gault) 79.5 Glucose Level 113 mg/dL (70-99) Calcium Level 9.4 mg/dL (8.5-10.1) Triglycerides Level 86 mg/dL (0-150) Cholesterol Level 142 mg/dL (0-200) LDL Cholesterol, Calculated 88 mg/dL (0-100) VLDL Cholesterol, Calculated 17 mg/dL (0-40) Non-HDL Cholesterol Calculated 105 mg/dL (0-129) HDL Cholesterol 37 mg/dL (40-60) Cholesterol/HDL Ratio 3.8 Thyroid Stimulating Hormone (TSH) 1.661 uIU/mL (0.358-3.74) Problem List Problems Medical Problems: (1) Rectal bleeding Status: Acute (2) Urinary tract infection Status: Acute Assessment/Plan stable no surgical indications cardiac wells in progress will sign off, please call with questions DUGLAS TORRES APRN Aug 23, 2019 08:03
--- NOTE | 2019-08-23 08:24 | PDOC ---
PROGRESS NOTES History of Present Illness History of Present Illness VTE Prophylaxis Ordered VTE Prophylaxis Devices: Yes VTE Pharmacological Prophylaxi: Contraindicated DISCHARGE DX Assessment/Plan A/P: Bright red blood per rectum - painless, could be diverticular bleed vs hemorrhoids. hx rectal prolapse, hgb stable at 11.4 08-20./// 9.4 08/23 consult GI and general surgery hx a-fib , saw dr MASTERS IN THE PAST Urinary frequency - with positive leukocyte esterase she may well have a UTI, cont rx empiric rocephin HTN - will cont meds Osteoarthritis - will hold ASA and NSAIDs with her acute bleeding. Tylenol ok H/o Hysterectomy, PROLAPSED rectum surgery - general surgery following FEN - general diet, NPO now PPX - SCDs FULL CODE Dispo - inpatient for acute lower GI bleeding for further workup of bleeding consider ct abdomen ok to restart asa Consult cardiology, ekg, echo considered for outpatient evaluation for a watchman procedure PROCEDURE NOTE PROCEDURE Procedure Colonoscopy bleeding anesthesia with propofol Findings Numerous diverticuli in sigmoid and descending colon with recent bleeding; recurrent polyp in transverse colon at prior tattoo site (10 mm)- removed by piecemeal snare polypectomy, small hemorrhoids Plan- resume diet monitor labs check on A fib DR SANABRIA 37 min pt exam, chart review D/C PLANNING , > 50% of time spent with exam, chart review, pt care coordination Vitals Vitals Vital Signs Date Time Temp Pulse Resp B/P (MAP) Pulse Ox O2 Delivery O2 Flow Rate FiO2 08/23/19 07:21 98.2 77 20 154/67 (96) 99 Room Air 98.2 08/22/19 20:00 4.0 Physical Exam General: Alert, Oriented X3, Cooperative, No acute distress Heart: Regular rate, Other (AFIB ) Lungs: Clear Abdomen: Normal bowel sounds, Soft, No tenderness Extremities: No edema, Normal pulses Skin: No significant lesion Assessment and Plan Assessmemt and Plan Problems Medical Problems: (1) Rectal bleeding Status: Acute (2) Urinary tract infection Status: Acute Comment Review of Relevant I have reviewed the following items rhonda (where applicable) has been applied. Labs Laboratory Tests Test 08/22/19 05:55 White Blood Count 7.2 x10^3/uL (4.0-11.0) Red Blood Count 3.04 x10^6/uL (3.50-5.40) Hemoglobin 9.4 g/dL (12.0-15.5) Hematocrit 27.0 % (36.0-47.0) Mean Corpuscular Volume 89 fL (79-100) Mean Corpuscular Hemoglobin 31 pg (25-35) Mean Corpuscular Hemoglobin Concent 35 g/dL (31-37) Red Cell Distribution Width 14.5 % (11.5-14.5) Platelet Count 240 x10^3/uL (140-400) Neutrophils (%) (Auto) 62 % (31-73) Lymphocytes (%) (Auto) 27 % (24-48) Monocytes (%) (Auto) 8 % (0-9) Eosinophils (%) (Auto) 3 % (0-3) Basophils (%) (Auto) 1 % (0-3) Neutrophils # (Auto) 4.4 x10^3/uL (1.8-7.7) Lymphocytes # (Auto) 1.9 x10^3/uL (1.0-4.8) Monocytes # (Auto) 0.6 x10^3/uL (0.0-1.1) Eosinophils # (Auto) 0.2 x10^3/uL (0.0-0.7) Basophils # (Auto) 0.0 x10^3/uL (0.0-0.2) Sodium Level 144 mmol/L (136-145) Potassium Level 3.5 mmol/L (3.5-5.1) Chloride Level 107 mmol/L (98-107) Carbon Dioxide Level 27 mmol/L (21-32) Anion Gap 10 (6-14) Blood Urea Nitrogen 7 mg/dL (7-20) Creatinine 0.7 mg/dL (0.6-1.0) Estimated GFR (Cockcroft-Gault) 79.5 Glucose Level 113 mg/dL (70-99) Calcium Level 9.4 mg/dL (8.5-10.1) Triglycerides Level 86 mg/dL (0-150) Cholesterol Level 142 mg/dL (0-200) LDL Cholesterol, Calculated 88 mg/dL (0-100) VLDL Cholesterol, Calculated 17 mg/dL (0-40) Non-HDL Cholesterol Calculated 105 mg/dL (0-129) HDL Cholesterol 37 mg/dL (40-60) Cholesterol/HDL Ratio 3.8 Thyroid Stimulating Hormone (TSH) 1.661 uIU/mL (0.358-3.74) Microbiology 08/19/19 Urine Culture - Final, Complete 08/19/19 Urine Culture Result 1 (ROSINA) - Final, Complete Medications Current Medications Ceftriaxone Sodium (Rocephin) 1 gm 1X ONCE IVP Last administered on 08/19/19at 21:53; Start 08/19/19 at 21:30; Stop 08/19/19 at 21:31; Status DC Ondansetron HCl (Zofran) 4 mg PRN Q8HRS PRN IV NAUSEA/VOMITING 1ST CHOICE; Start 08/19/19 at 21:15; Stop 08/19/19 at 22:58; Status DC Sodium Chloride 1,000 ml @ 125 mls/hr Q8H IV Last administered on 08/20/19at 21:42; Start 08/19/19 at 21:30; Stop 08/20/19 at 21:29; Status DC Acetaminophen (Tylenol) 650 mg PRN Q4HRS PRN PO FEVER; Start 08/19/19 at 21:15; Stop 08/19/19 at 23:03; Status DC Fish Oil (Fish Oil) 1,000 mg DAILY PO Last administered on 08/22/19 08:52; Start 08/20/19 at 09:00 Potassium Chloride (Klor-Con) 10 meq DAILY PO Last administered on 08/22/19 08:52; Start 08/20/19 at 09:00 Tramadol HCl (Ultram) 50 mg PRN Q6HRS PRN PO MODERATE PAIN 4-6 Last administered on 08/22/19 08:53; Start 08/19/19 at 22:45 Calcium Carbonate/ Glycine (Oscal) 500 mg DAILY PO Last administered on 08/22/19 08:51; Start 08/20/19 at 09:00 Vitamin D (Vitamin D3) 2,000 unit DAILY PO Last administered on 08/22/19 08:51; Start 08/20/19 at 09:00 Cyanocobalamin (Vitamin B-12) 500 mcg DAILY PO Last administered on 08/22/19 08:51; Start 08/20/19 at 09:00 Losartan Potassium (Cozaar) 100 mg DAILY PO Last administered on 08/21/19at 09:00; Start 08/20/19 at 09:00; Stop 08/22/19 at 12:18; Status DC Ceftriaxone Sodium (Rocephin) 1 gm Q24H IVP Last administered on 08/20/19at 21:41; Start 08/20/19 at 22:00 Hydrochlorothiazide (Microzide) 12.5 mg DAILY PO ; Start 08/20/19 at 09:00; Stop 08/20/19 at 15:28; Status DC Ondansetron HCl (Zofran) 4 mg PRN Q6HRS PRN IV NAUSEA/VOMITING 1ST CHOICE; Start 08/19/19 at 23:00 Acetaminophen (Tylenol) 650 mg PRN Q6HRS PRN PO MILD PAIN / TEMP Last admin istered on 08/22/19at 08:49; Start 08/19/19 at 23:00; Stop 08/22/19 at 11:41; Status DC Losartan Potassium (Cozaar) 100 mg 1X ONCE PO Last administered on 08/19/19at 23:27; Start 08/19/19 at 23:30; Stop 08/19/19 at 23:31; Status DC Pantoprazole Sodium (Protonix) 40 mg DAILYAC PO Last administered on 08/20/19at 11:36; Start 08/20/19 at 10:00; Stop 08/20/19 at 15:27; Status DC Lactobacillus Rhamnosus (Culturelle) 1 cap BID PO Last administered on 08/22/19at 20:39; Start 08/20/19 at 21:00 Polyethylene Glycol (miraLAX Powder BULK BOTTLE) 238 gm 1X ONCE PO Last administered on 08/20/19at 17:04; Start 08/20/19 at 16:00; Stop 08/20/19 at 16:01; Status DC Bisacodyl (Dulcolax Tab) 10 mg 1X ONCE PO Last administered on 08/20/19at 17:07; Start 08/20/19 at 15:30; Stop 08/20/19 at 15:31; Status DC Bisacodyl (Dulcolax Tab) 10 mg 1X ONCE PO Last administered on 08/20/19at 18:56; Start 08/20/19 at 18:00; Stop 08/20/19 at 18:01; Status DC Pantoprazole Sodium (PROTONIX VIAL for IV PUSH) 40 mg DAILYAC IVP Last adminis tered on 08/21/19at 08:27; Start 08/21/19 at 07:30; Stop 08/21/19 at 13:44; Status DC Furosemide (Lasix) 40 mg DAILY PO Last administered on 08/22/19at 08:52; Start 08/20/19 at 15:30 Ondansetron HCl (Zofran) 4 mg PRN Q6HRS PRN IV NAUSEA/VOMITING; Start 08/21/19 at 07:00; Stop 08/22/19 at 06:59; Status DC Fentanyl Citrate (Fentanyl 2ml Vial) 25 mcg PRN Q5MIN PRN IV MILD PAIN 1-3; Start 08/21/19 at 07:00; Stop 08/22/19 at 06:59; Status DC Fentanyl Citrate (Fentanyl 2ml Vial) 50 mcg PRN Q5MIN PRN IV MODERATE TO SEVERE PAIN; Start 08/21/19 at 07:00; Stop 08/22/19 at 06:59; Status DC Morphine Sulfate (Morphine Sulfate) 1 mg PRN Q10MIN PRN IV SEVERE PAIN 7-10; Start 08/21/19 at 07:00; Stop 08/22/19 at 06:59; Status DC Ringer's Solution 1,000 ml @ 30 mls/hr Q24H IV Last administered on 08/21/19at 12:06; Start 08/21/19 at 07:00; Stop 08/21/19 at 18:59; Status DC Lidocaine HCl (Xylocaine-Mpf 1% 2ml Vial) 2 ml PRN 1X PRN ID PRIOR TO IV START; Start 08/21/19 at 07:00; Stop 08/22/19 at 06:59; Status DC Hydromorphone HCl (Dilaudid) 0.5 mg PRN Q10MIN PRN IV SEV PAIN, Second choice; Start 08/21/19 at 07:00; Stop 08/22/19 at 06:59; Status DC Prochlorperazine Edisylate (Compazine) 5 mg PACU PRN PRN IV NAUSEA, MRX1; Start 08/21/19 at 07:00; Stop 08/22/19 at 06:59; Status DC Zolpidem Tartrate (Ambien) 5 mg PRN QHS PRN PO INSOMNIA Last administered on 08/22/19at 22:16; Start 08/20/19 at 21:15 Propofol 40 ml @ As Directed STK-MED ONCE IV ; Start 08/21/19 at 12:25; Stop 08/21/19 at 12:26; Status DC Lidocaine HCl (Lidocaine Pf 2% Vial) 5 ml STK-MED ONCE .ROUTE ; Start 08/21/19 at 12:25; Stop 08/21/19 at 12:26; Status DC Pantoprazole Sodium (Protonix) 40 mg DAILYAC PO ; Start 08/22/19 at 11:00 Acetaminophen (Tylenol) 650 mg Q6HRS PO Last administered on 08/22/19at 17:45; Start 08/22/19 at 12:00 Aspirin (Ecotrin) 81 mg HS PO Last administered on 08/22/19at 20:37; Start 08/22/19 at 21:00 Furosemide (Lasix) 40 mg DAILY PO ; Start 08/22/19 at 12:00; Status Cancel Tizanidine HCl (Zanaflex) 4 mg QHS PO Last administered on 08/22/19at 20:37; Start 08/22/19 at 21:00 Non-Formulary Medication (Calcium Carbonate (Calcium)) 600 mg DAILY PO ; Start 08/23/19 at 09:00; Status UNV Non-Formulary Medication (Gluc/Jameson-Msm#2/ C/D3/Rhys/Born (Kkpbvwwvwk-Gxrewguklhn-Xqu Tab)) 1 each BID PO ; Start 08/22/19 at 21:00; Status UNV Non-Formulary Medication (Losartan Potassium ) 100 mg HS PRN PO blood pressure; Start 08/22/19 at 11:45; Status UNV Meloxicam (Mobic) 7.5 mg DAILY PO ; Start 08/22/19 at 12:00; Stop 08/22/19 at 12:19; Status DC Multivitamins (Thera M Plus) 1 tab DAILY PO ; Start 08/22/19 at 12:00 Non-Formulary Medication ([place]-3/Dha/Epa/ Fish Oil (Fish Oil 1,400 Mg Softgel)) 1 each DAILY PO ; Start 08/23/19 at 09:00; Status UNV Non-Formulary Medication ([Q10] ) 1 cap DAILY PO ; Start 08/23/19 at 09:00; Status UNV Losartan Potassium (Cozaar) 100 mg HS PO Last administered on 08/22/19at 20:39; Start 08/22/19 at 21:00 Meloxicam (Mobic) 7.5 mg HS PO Last administered on 08/22/19at 20:43; Start 08/22/19 at 21:00 Metoprolol Tartrate (Lopressor) 25 mg BID PO Last administered on 08/22/19at 20:40; Start 08/22/19 at 15:00 Ferrous Sulfate (Feosol) 325 mg BIDWMEALS PO Last administered on 08/22/19at 17:45; Start 08/22/19 at 17:00 Active Scripts Active Reported Losartan Potassium 100 Mg Tablet 100 Mg PO HS PRN [Q10] 1 Cap PO DAILY Multivitamins (Multivitamin) 1 Each Tablet 1 Tab PO DAILY Tylenol (Acetaminophen) 325 Mg Tablet 650 Mg PO Q6HRS Nxuaythsrq-Gztlsnubfeo-Wlj Tab (Gluc/[place]-Msm#2/C/D3/Rhys/Born) 1 Each Tablet 1 Each PO BID Calcium (Calcium Carbonate) 600 Mg Tablet 600 Mg PO DAILY Tizanidine Hcl 4 Mg Tablet 1 Tab PO QHS Fish Oil 1,400 Mg Softgel ([place]-3/Dha/Epa/Fish Oil) 1 Each Capsule.dr 1 Each PO DAILY Vitamin D-3 (Cholecalciferol (Vitamin D3)) 2,000 Unit Capsule 2,000 Unit PO DAILY B-12 (Cyanocobalamin (Vitamin B-12)) 500 Mcg Tablet 1,000 Mcg PO DAILY Tramadol Hcl 50 Mg Tablet 50 Mg PO Q6HRS PRN Meloxicam 15 Mg Tablet 0.5 Tab PO DAILY Aspir-Low (Aspirin) 81 Mg Tablet.dr 1 Tab PO HS Potassium Chloride 10 Meq Tab.sr.24h 10 Meq PO DAILY Furosemide 40 Mg Tablet 1 Tab PO DAILY Vitals/I & O Vital Sign - Last 24 Hours 08/22/19 08/22/19 08/22/19 08/22/19 08:53 09:53 11:00 14:30 Temp 97.7 97.7 Pulse 75 Resp 18 16 18 B/P (MAP) 142/63 (89) Pulse Ox 94 O2 Delivery Room Air Room Air Room Air Room Air 08/22/19 08/22/19 08/22/19 08/22/19 15:00 17:45 19:48 20:00 Temp 97.6 98.3 97.6 98.3 Pulse 61 61 77 Resp 18 16 B/P (MAP) 177/72 (107) 177/72 138/66 (90) Pulse Ox 96 97 O2 Delivery Room Air Room Air Room Air O2 Flow Rate 4.0 08/22/19 08/22/19 08/22/19 08/23/19 20:39 20:40 23:24 03:06 Temp 97.6 97.8 97.6 97.8 Pulse 77 77 63 65 Resp 16 16 B/P (MAP) 138/66 138/66 93/48 (63) 100/50 (67) Pulse Ox 95 96 O2 Delivery Room Air Room Air 08/23/19 07:21 Temp 98.2 98.2 Pulse 77 Resp 20 B/P (MAP) 154/67 (96) Pulse Ox 99 O2 Delivery Room Air Intake and Output 08/22/19 08/22/19 08/23/19 15:00 23:00 07:00 Intake Total 400 ml Output Total 6 ml Balance 394 ml ZOE REYNOLDS MD Aug 23, 2019 08:24
[2019-08-23] MEDS: OMEGA-3 FATTY ACIDS/FISH OIL 1,000 MG CAPSULE. PO SCH (08:27)
[2019-08-23] MEDS: MULTIVITAMIN with MINERAL TABLET. PO SCH (08:27)
[2019-08-23] MEDS: FERROUS SULFATE 325 MG TABLET. PO SCH (08:28)
[2019-08-23] MEDS: METOPROLOL TART IMMED RELEASE 25 MG TABLET. PO SCH (08:28)
[2019-08-23] MEDS: PANTOPRAZOLE 40 MG TABLET.DR. PO SCH (08:28)
[2019-08-23] MEDS: POTASSIUM CHLORIDE 10 MEQ TABLET.ER. PO SCH (08:28)
[2019-08-23] MEDS: LACTOBACILLUS RHAMNOSUS GG 1 CAPSULE. PO SCH (08:29)
[2019-08-23] MEDS: FUROSEMIDE 40 MG TABLET. PO SCH (08:29)
[2019-08-23] MEDS: CYANOCOBALAMIN (VITAMIN B-12) 1,000 MCG TABLET. PO SCH (08:29)
[2019-08-23] MEDS: CHOLECALCIFEROL (VITAMIN D3) 1,000 UNIT TABLET PO SCH (08:29)
[2019-08-23] MEDS: CALCIUM CARBONATE 500 MG TABLET PO SCH (08:30)
[2019-08-23] MEDS ORDERED: [UNRECOGNIZED DRUG - OTHER] PO SCH (09:00)
[2019-08-23] MEDS ORDERED: CALCIUM CARBONATE 600 MG PO SCH (09:00)
[2019-08-23] MEDS ORDERED: FISH OIL PO SCH (09:00)
[2019-08-23] MEDS ORDERED: OMEGA PO SCH (09:00)
[2019-08-23] MEDS ORDERED: EPA PO SCH (09:00)
[2019-08-23] MEDS ORDERED: DHA PO SCH (09:00)
--- NOTE | 2019-08-23 09:41 | PDOC ---
Subjective: Subjective: No GI complaints. Wants to know who she's supposed to follow-up with and when, wants to know when she can leave today so she can arrange a ride. Objective: Vital Signs: Vital Signs Date Time Temp Pulse Resp B/P (MAP) Pulse Ox O2 Delivery O2 Flow Rate FiO2 08/23/19 08:28 77 154/67 08/23/19 07:21 98.2 20 99 Room Air 98.2 08/22/19 20:00 4.0 Labs: Material submitted: . PART A: stomach - ANTRAL BIOPSY PART B: colon - TRANSVERSE COLON POLYP BIOPSY. Modifiers: transverse PART C: colon - DISTAL TRANSVERSE COLON POLYP BIOPSY. Modifiers: distal, transverse Diagnosis: A. Gastric biopsies, antrum: - Chronic gastritis, mild. B. Colon biopsies, transverse colon polyp: - Hyperplastic polyp. C. Colon biopsies, distal transverse colon polyp: - Mixed hyperplastic/adenomatous polyp. Comment: Sections of the gastric biopsy reveal segments of gastric antral and gastric body mucosa showing congestion and mild chronic inflammation. A properly controlled immunoperoxidase stain for Helicobacter is negative for Helicobacter organisms. The transverse colon polyps show no evidence of high-grade dysplasia or malignancy. PE: GEN: NAD - walking around room LUNGS: room air NEURO/PSYCH: A & O 3 A/P: Diverticular bleed - resolved A Fib - ASA resumed, plans for outpt cardiology follow-up UTI Anemia - stable H/o colon polyp - path as above -- Iron started yesterday - continue for now - can have lab follow-up w/ PCP. DC per primary. JOHNNY MENDEZ Aug 23, 2019 09:41
[2019-08-23 11:15] VITALS: BP 146/79
[2019-08-23 15:02] VITALS: BP 153/78
--- NOTE | 2019-08-23 15:18 | NUR ---
SW following pt. Discussed with RN and no SW needs at this time.
[2019-08-23] MEDS ORDERED: FERR325T14 PO (16:39)
--- NOTE | 2019-08-23 17:00 | NUR ---
pt is discharged home with self care at 1655 via wheelchair via [facility] [place]. pt is in stable condition. pt has all belongings with her. pt received discharge instructions and stated she had no further questions for me. pt has her follow up appt [facility] and was informed that a heart monitor would be delivered to her house.
--- NOTE | 2019-09-09 22:48 | PDOC3 ---
Discharge Summary Date of Admission: Aug 19, 2019 Date of Discharge: Aug 23, 2019 Follow-Up: 1-2 days Admitting Diagnosis comment: DISCHARGE DX Assessment/Plan A/P: Bright red blood per rectum - painless, could be diverticular bleed vs h emorrhoids. hx rectal prolapse, hgb stable at 11.4 08-20./// 9.4 08/23 consult GI and general surgery hx a-fib , saw dr MASTERS IN THE PAST Urinary frequency - with positive leukocyte esterase she may well have a UTI, cont rx empiric rocephin HTN - will cont meds Osteoarthritis - will hold ASA and NSAIDs with her acute bleeding. Tylenol ok H/o Hysterectomy, PROLAPSED rectum surgery - general surgery following FEN - general diet, NPO now PPX - SCDs FULL CODE Dispo - inpatient for acute lower GI bleeding for further workup of bleeding consider ct abdomen ok to restart asa Consult cardiology, ekg, echo considered for outpatient evaluation for a watchman procedure PROCEDURE NOTE PROCEDURE Procedure Colonoscopy bleeding anesthesia with propofol Findings Numerous diverticuli in sigmoid and descending colon with recent bleeding; recurrent polyp in transverse colon at prior tattoo site (10 mm)- removed by piecemeal snare polypectomy, small hemorrhoids Plan- resume diet monitor labs check on A fib DR SANABRIA 37 min pt exam, chart review D/C PLANNING , > 50% of time spent with exam, chart review, pt care coordination Vitals Vitals Vital Signs Date Time Temp Pulse Resp B/P (MAP) Pulse Ox O2 Delivery O2 Flow Rate FiO2 08/23/19 07:21 98.2 77 20 154/67 (96) 99 Room Air 98.2 08/22/19 20:00 4.0 Physical Exam General: Alert, Oriented X3, Cooperative, No acute distress Heart: Regular rate, Other (AFIB ) Lungs: Clear Abdomen: Normal bowel sounds, Soft, No tenderness Extremities: No edema, Normal pulses Skin: No significant lesion FINAL DIAGNOSIS Problems Medical Problems: (1) Rectal bleeding Status: Acute (2) Urinary tract infection Status: Acute Brief Hospital Course Ms. Pindea is a 84 old [sex] who presented with [rectal bleeding ] CONDITION AT DISCHARGE: Improved Discharge Medications Current Medications Ceftriaxone Sodium (Rocephin) 1 gm 1X ONCE IVP Last administered on 08/19/19at 21:53; Start 08/19/19 at 21:30; Stop 08/19/19 at 21:31; Status DC Ondansetron HCl (Zofran) 4 mg PRN Q8HRS PRN IV NAUSEA/VOMITING 1ST CHOICE; Start 08/19/19 at 21:15; Stop 08/19/19 at 22:58; Status DC Sodium Chloride 1,000 ml @ 125 mls/hr Q8H IV Last administered on 08/20/19at 21:42; Start 08/19/19 at 21:30; Stop 08/20/19 at 21:29; Status DC Acetaminophen (Tylenol) 650 mg PRN Q4HRS PRN PO FEVER; Start 08/19/19 at 21:15; Stop 08/19/19 at 23:03; Status DC Fish Oil (Fish Oil) 1,000 mg DAILY PO Last administered on 08/23/19 08:27; Start 08/20/19 at 09:00; Stop 08/23/19 at 17:04; Status DC Potassium Chloride (Klor-Con) 10 meq DAILY PO Last administered on 08/23/19 08:28; Start 08/20/19 at 09:00; Stop 08/23/19 at 17:04; Status DC Tramadol HCl (Ultram) 50 mg PRN Q6HRS PRN PO MODERATE PAIN 4-6 Last administered on 08/22/19 08:53; Start 08/19/19 at 22:45; Stop 08/23/19 at 17:04; Status DC Calcium Carbonate/ Glycine (Oscal) 500 mg DAILY PO Last administered on 08:30; Start 08/20/19 at 09:00; Stop 08/23/19 at 17:04; Status DC Vitamin D (Vitamin D3) 2,000 unit DAILY PO Last administered on 08/23/19 08:29; Start 08/20/19 at 09:00; Stop 08/23/19 at 17:04; Status DC Cyanocobalamin (Vitamin B-12) 500 mcg DAILY PO Last administered on 08/23/19 08:29; Start 08/20/19 at 09:00; Stop 08/23/19 at 17:04; Status DC Losartan Potassium (Cozaar) 100 mg DAILY PO Last administered on 10/2/19at 09:00; Start 08/20/19 at 09:00; Stop 08/22/19 at 12:18; Status DC Ceftriaxone Sodium (Rocephin) 1 gm Q24H IVP Last administered on 08/20/19at 21:41; Start 08/20/19 at 22:00; Stop 08/23/19 at 17:04; Status DC Hydrochlorothiazide (Microzide) 12.5 mg DAILY PO ; Start 08/20/19 at 09:00; Stop 08/20/19 at 15:28; Status DC Ondansetron HCl (Zofran) 4 mg PRN Q6HRS PRN IV NAUSEA/VOMITING 1ST CHOICE; Start 08/19/19 at 23:00; Stop 08/23/19 at 17:04; Status DC Acetaminophen (Tylenol) 650 mg PRN Q6HRS PRN PO MILD PAIN / TEMP Last administered on 08/22/19at 08:49; Start 08/19/19 at 23:00; Stop 08/22/19 at 11:41; Status DC Losartan Potassium (Cozaar) 100 mg 1X ONCE PO Last administered on 08/19/19at 23:27; Start 08/19/19 at 23:30; Stop 08/19/19 at 23:31; Status DC Pantoprazole Sodium (Protonix) 40 mg DAILYAC PO Last administered on 08/20/19at 11:36; Start 08/20/19 at 10:00; Stop 08/20/19 at 15:27; Status DC Lactobacillus Rhamnosus (Culturelle) 1 cap BID PO Last administered on 08/23/19at 08:29; Start 08/20/19 at 21:00; Stop 08/23/19 at 17:04; Status DC Polyethylene Glycol (miraLAX Powder BULK BOTTLE) 238 gm 1X ONCE PO Last administered on 08/20/19at 17:04; Start 08/20/19 at 16:00; Stop 08/20/19 at 16:01; Status DC Bisacodyl (Dulcolax Tab) 10 mg 1X ONCE PO Last administered on 08/20/19at 17:07; Start 08/20/19 at 15:30; Stop 08/20/19 at 15:31; Status DC Bisacodyl (Dulcolax Tab) 10 mg 1X ONCE PO Last administered on 08/20/19at 18:56; Start 08/20/19 at 18:00; Stop 08/20/19 at 18:01; Status DC Pantoprazole Sodium (PROTONIX VIAL for IV PUSH) 40 mg DAILYAC IVP Last administered on 08/21/19at 08:27; Start 08/21/19 at 07:30; Stop 08/21/19 at 13:44; Status DC Furosemide (Lasix) 40 mg DAILY PO Last administered on 08/23/19at 08:29; Start 08/20/19 at 15:30; Stop 08/23/19 at 17:04; Status DC Ondansetron HCl (Zofran) 4 mg PRN Q6HRS PRN IV NAUSEA/VOMITING; Start 08/21/19 at 07:00; Stop 08/22/19 at 06:59; Status DC Fentanyl Citrate (Fentanyl 2ml Vial) 25 mcg PRN Q5MIN PRN IV MILD PAIN 1-3; Start 08/21/19 at 07:00; Stop 08/22/19 at 06:59; Status DC Fentanyl Citrate (Fentanyl 2ml Vial) 50 mcg PRN Q5MIN PRN IV MODERATE TO SEVERE PAIN; Start 08/21/19 at 07:00; Stop 08/22/19 at 06:59; Status DC Morphine Sulfate (Morphine Sulfate) 1 mg PRN Q10MIN PRN IV SEVERE PAIN 7-10; Start 08/21/19 at 07:00; Stop 08/22/19 at 06:59; Status DC Ringer's Solution 1,000 ml @ 30 mls/hr Q24H IV Last administered on 08/21/19at 12:06; Start 08/21/19 at 07:00; Stop 08/21/19 at 18:59; Status DC Lidocaine HCl (Xylocaine-Mpf 1% 2ml Vial) 2 ml PRN 1X PRN ID PRIOR TO IV START; Start 08/21/19 at 07:00; Stop 08/22/19 at 06:59; Status DC Hydromorphone HCl (Dilaudid) 0.5 mg PRN Q10MIN PRN IV SEV PAIN, Second choice; Start 08/21/19 at 07:00; Stop 08/22/19 at 06:59; Status DC Prochlorperazine Edisylate (Compazine) 5 mg PACU PRN PRN IV NAUSEA, MRX1; Start 08/21/19 at 07:00; Stop 08/22/19 at 06:59; Status DC Zolpidem Tartrate (Ambien) 5 mg PRN QHS PRN PO INSOMNIA Last administered on 08/22/19at 22:16; Start 08/20/19 at 21:15; Stop 08/23/19 at 17:04; Status DC Propofol 40 ml @ As Directed STK-MED ONCE IV ; Start 08/21/19 at 12:25; Stop 08/21/19 at 12:26; Status DC Lidocaine HCl (Lidocaine Pf 2% Vial) 5 ml STK-MED ONCE .ROUTE ; Start 08/21/19 at 12:25; Stop 08/21/19 at 12:26; Status DC Pantoprazole Sodium (Protonix) 40 mg DAILYAC PO Last administered on 08/23/19at 08:28; Start 08/22/19 at 11:00; Stop 08/23/19 at 17:04; Status DC Acetaminophen (Tylenol) 650 mg Q6HRS PO Last administered on 08/23/19at 08:27; Start 08/22/19 at 12:00; Stop 08/23/19 at 17:04; Status DC Aspirin (Ecotrin) 81 mg HS PO Last administered on 08/22/19at 20:37; Start 08/22/19 at 21:00; Stop 08/23/19 at 17:04; Status DC Furosemide (Lasix) 40 mg DAILY PO ; Start 08/22/19 at 12:00; Status Cancel Tizanidine HCl (Zanaflex) 4 mg QHS PO Last administered on 08/22/19at 20:37; Start 08/22/19 at 21:00; Stop 08/23/19 at 17:04; Status DC Non-Formulary Medication (Calcium Carbonate (Calcium)) 600 mg DAILY PO ; Start 08/23/19 at 09:00; Status UNV Non-Formulary Medication (Gluc/[place]-Msm#2/ C/D3/Rhys/Born (Xikkaebkza-Xatidszwkuk-Odh Tab)) 1 each BID PO ; Start 08/22/19 at 21:00; Status UNV Non-Formulary Medication (Losartan Potassium ) 100 mg HS PRN PO blood pressure; Start 08/22/19 at 11:45; Status UNV Meloxicam (Mobic) 7.5 mg DAILY PO ; Start 08/22/19 at 12:00; Stop 08/22/19 at 12:19; Status DC Multivitamins (Thera M Plus) 1 tab DAILY PO Last administered on 08/23/19at 08:27; Start 08/22/19 at 12:00; Stop 08/23/19 at 17:04; Status DC Non-Formulary Medication ([place]-3/Dha/Epa/ Fish Oil (Fish Oil 1,400 Mg Softgel)) 1 each DAILY PO ; Start 08/23/19 at 09:00; Status UNV Non-Formulary Medication ([Q10] ) 1 cap DAILY PO ; Start 08/23/19 at 09:00; Status UNV Losartan Potassium (Cozaar) 100 mg HS PO Last administered on 08/22/19at 20:39; Start 08/22/19 at 21:00; Stop 08/23/19 at 17:04; Status DC Meloxicam (Mobic) 7.5 mg HS PO Last administered on 08/22/19at 20:43; Start 08/22/19 at 21:00; Stop 08/23/19 at 17:04; Status DC Metoprolol Tartrate (Lopressor) 25 mg BID PO Last administered on 08/23/19at 08:28; Start 08/22/19 at 15:00; Stop 08/23/19 at 17:04; Status DC Ferrous Sulfate (Feosol) 325 mg BIDWMEALS PO Last administered on 08/23/19at 08:28; Start 08/22/19 at 17:00; Stop 08/23/19 at 17:04; Status DC Active Scripts Active Reported Ferrous Sulfate 325 Mg Tablet 1 Tab PO BID Losartan Potassium 100 Mg Tablet 100 Mg PO HS PRN [Q10] 1 Cap PO DAILY Multivitamins (Multivitamin) 1 Each Tablet 1 Tab PO DAILY Tylenol (Acetaminophen) 325 Mg Tablet 650 Mg PO Q6HRS Mohwrzxvwa-Uhzktbrrxsn-Ovw Tab (Gluc/[place]-Msm#2/C/D3/Rhys/Born) 1 Each Tablet 1 Each PO BID Calcium (Calcium Carbonate) 600 Mg Tablet 600 Mg PO DAILY Tizanidine Hcl 4 Mg Tablet 1 Tab PO QHS Fish Oil 1,400 Mg Softgel ([place]-3/Dha/Epa/Fish Oil) 1 Each Capsule.dr 1 Each PO DAILY Vitamin D-3 (Cholecalciferol (Vitamin D3)) 2,000 Unit Capsule 2,000 Unit PO DAILY B-12 (Cyanocobalamin (Vitamin B-12)) 500 Mcg Tablet 1,000 Mcg PO DAILY Tramadol Hcl 50 Mg Tablet 50 Mg PO Q6HRS PRN Meloxicam 15 Mg Tablet 0.5 Tab PO DAILY Aspir-Low (Aspirin) 81 Mg Tablet.dr 1 Tab PO HS Potassium Chloride 10 Meq Tab.sr.24h 10 Meq PO DAILY Furosemide 40 Mg Tablet 1 Tab PO DAILY Allergies Allergies Coded Allergies Type Severity Reaction Last Updated Verified No Known Drug Allergies 08/21/19 No Disposition/Orders: Other (d/c to snf) ZOE REYNOLDS MD Sep 09, 2019 22:48
== END 2019-08-23 16:55 | disposition home or self-care (01) | DRG 378 ==
LOC: ER 19:22 → 5 SOUTH 21:11 → 6 SOUTH 08-22 12:42
PROVIDERS: ADMIT Internal Medicine; ATTEND Internal Medicine
PROC: 0DB68ZX Excision of Stomach, Via Natural or Artificial Opening Endoscopic, Diagnostic (ICD-10-PCS; principal; 2019-08-21 12:30)
PROC: 0DBL8ZZ Excision of Transverse Colon, Via Natural or Artificial Opening Endoscopic (ICD-10-PCS; 2019-08-21 12:30)
DX: K57.31 Diverticulosis of large intestine without perforation or abscess with bleeding (principal); N30.00 Acute cystitis without hematuria; K62.3 Rectal prolapse; D64.9 Anemia, unspecified; G47.33 Obstructive sleep apnea (adult) (pediatric); I10 Essential (primary) hypertension; I48.91 Unspecified atrial fibrillation; I49.3 Ventricular premature depolarization; K64.4 Residual hemorrhoidal skin tags; M19.90 Unspecified osteoarthritis, unspecified site; Z79.82 Long term (current) use of aspirin; Z82.49 Family history of ischemic heart disease and other diseases of the circulatory system; Z87.19 Personal history of other diseases of the digestive system; Z90.49 Acquired absence of other specified parts of digestive tract; Z90.710 Acquired absence of both cervix and uterus; K29.51 Unspecified chronic gastritis with bleeding
CPT/HCPCS: 36415; 43239; 45380; 80048; 80053; 80061; 81001; 84443; 85018; 85025; 85610; 87086; 88305; 88342; 93005; 93306; 96374; C9113; J0696; J2001; J2704; J7030; J7120; 99285-25; G0378

== ENCOUNTER 2019-11-08 18:37 | Emergency (ER) | payer MEDICARE ==
[~2019-11-08] VITALS: Ht 157.5 cm; Wt 82.6 kg
[~2019-11-08 18:37] MED LIST changes: +ACET325T9 PO; +CALC600T4 PO; +FERR325T14 PO; +GLUC1TAB26 PO; +LOSA100T14 PO; +MULT1TAB52 PO; +OMEG1CAP43 PO; +Q10 PO; +TIZA4TAB2 PO
--- NOTE | 2019-11-08 18:44 | PHYS DOC ---
Past Medical History Past Medical History: Arthritis, Hypertension Past Surgical History: Hysterectomy, Other Additional Past Surgical Histo: PROLAPSED BOWEL Alcohol Use: None Drug Use: None Adult General Chief Complaint Chief Complaint: HYPERTENSION HPI HPI 84-year-old female presents with report of elevated blood pressure which has been trending upward this week. Reports had been in the 210s/110s. Patient denies chest pain or headache. Denies other complaint. Reports she has been compliant with her home medications. Patient presented to urgent care clinic at her PCP's office today. The [employer] there saw patient and sent patient to ED for further evaluation and treatment. A prescription for clonidine 0.1mg q4 hrs prn SBP > 195 and/or DP >95 was given and patient instructed to increased her normal metoprolol to 50mg. Review of Systems Review of Systems Constitutional: Denies fever or chills Eyes: Denies redness or eye pain HENT: Denies nasal congestion or sore throat Respiratory: Denies cough or shortness of breath Cardiovascular: Denies chest pain or palpitations GI: Denies abdominal pain, nausea, or vomiting : Denies dysuria or hematuria Musculoskeletal: Denies back pain or joint pain Integument: Denies rash or skin lesions Neurologic: Denies headache, focal weakness or sensory changes Complete systems were reviewed and found to be within normal limits, except as documented in this note. Current Medications Current Medications Current Medications Medications (Trade) Dose Ordered Sig/Bertha Start Time Stop Time Status Last Admin Dose Admin Clonidine HCl (Catapres) 0.1 mg 1X ONCE 11/08/19 19:00 11/08/19 19:08 DC 11/08/19 19:43 0.1 MG Labetalol HCl (Normodyne Iv Push) 20 mg 1X ONCE 11/08/19 19:00 11/08/19 19:08 DC 11/08/19 19:42 20 MG Allergies Allergies Allergies Coded Allergies Type Severity Reaction Last Updated Verified No Known Drug Allergies 08/21/19 No Physical Exam Physical Exam Constitutional: Well developed, well nourished, no acute distress, non-toxic appearance HENT: Normocephalic, atraumatic, oropharynx moist Eyes: PERRL, EOMI, conjunctiva normal, no discharge Neck: Normal range of motion, no tenderness, supple Cardiovascular: Heart rate normal, regular rhythm Lungs & Thorax: Bilateral breath sounds clear to auscultation, no wheezing Abdomen: Soft, no tenderness Skin: Warm, dry, no erythema, no rash Extremities: No tenderness, ROM intact, no edema Neurologic: Alert and oriented X 3, normal motor function, normal sensory function, no focal deficits noted Psychologic: Affect anxious, judgement normal Current Patient Data Vital Signs Vital Signs Date Time Temp Pulse Resp B/P (MAP) Pulse Ox O2 Delivery O2 Flow Rate FiO2 11/08/19 19:43 93 195/91 11/08/19 19:00 98.2 24 95 Room Air 98.2 Lab Values Laboratory Tests Test 11/08/19 19:05 White Blood Count 8.6 x10^3/uL (4.0-11.0) Red Blood Count 4.61 x10^6/uL (3.50-5.40) Hemoglobin 13.1 g/dL (12.0-15.5) Hematocrit 40.2 % (36.0-47.0) Mean Corpuscular Volume 87 fL (79-100) Mean Corpuscular Hemoglobin 28 pg (25-35) Mean Corpuscular Hemoglobin Concent 33 g/dL (31-37) Red Cell Distribution Width 14.7 % (11.5-14.5) H Platelet Count 296 x10^3/uL (140-400) Neutrophils (%) (Auto) 69 % (31-73) Lymphocytes (%) (Auto) 21 % (24-48) L Monocytes (%) (Auto) 8 % (0-9) Eosinophils (%) (Auto) 2 % (0-3) Basophils (%) (Auto) 0 % (0-3) Neutrophils # (Auto) 5.9 x10^3/uL (1.8-7.7) Lymphocytes # (Auto) 1.9 x10^3/uL (1.0-4.8) Monocytes # (Auto) 0.7 x10^3/uL (0.0-1.1) Eosinophils # (Auto) 0.2 x10^3/uL (0.0-0.7) Basophils # (Auto) 0.0 x10^3/uL (0.0-0.2) Prothrombin Time 13.4 SEC (11.7-14.0) Prothrombin Time INR 1.1 (0.8-1.1) Activated Partial Thromboplast Time 29 SEC (24-38) Sodium Level 142 mmol/L (136-145) Potassium Level 3.5 mmol/L (3.5-5.1) Chloride Level 102 mmol/L (98-107) Carbon Dioxide Level 27 mmol/L (21-32) Anion Gap 13 (6-14) Blood Urea Nitrogen 25 mg/dL (7-20) H Creatinine 1.0 mg/dL (0.6-1.0) Estimated GFR (Cockcroft-Gault) 52.7 BUN/Creatinine Ratio 25 (6-20) H Glucose Level 146 mg/dL (70-99) H Calcium Level 9.5 mg/dL (8.5-10.1) Magnesium Level 2.3 mg/dL (1.8-2.4) Total Bilirubin 0.4 mg/dL (0.2-1.0) Aspartate Amino Transferase (AST) 19 U/L (15-37) Alanine Aminotransferase (ALT) 21 U/L (14-59) Alkaline Phosphatase 121 U/L (46-116) H Creatine Kinase 45 U/L (26-192) Creatine Kinase MB (Mass) 1.1 ng/mL (0.0-3.6) Creatine Kinase MB Relative Index % (0-4) Troponin I Quantitative < 0.017 ng/mL (0.000-0.055) Total Protein 8.1 g/dL (6.4-8.2) Albumin 4.1 g/dL (3.4-5.0) Albumin/Globulin Ratio 1.0 (1.0-1.7) Lipase 78 U/L (73-393) Laboratory Tests 11/08/19 19:05 Laboratory Tests 11/08/19 19:05 EKG EKG @1855 NSR at 88bpm, occasional PVC, wandering baseline. Radiology/Procedures Radiology/Procedures [] Course & Med Decision Making Course & Med Decision Making Pertinent Labs and Imaging studies reviewed. (See chart for details) Elderly patient presents for evaluation of elevated blood pressure. BP elevated upon arrival. Patient asymptomatic. Patient neurologically intact. Denies headache or chest pain. Labs obtained and posted to chart. EKG stable. BP addressed with interval improvement. Patient stable for discharge with outpatient follow-up with PCP. Discussed findings and plan with patient and family, who acknowledge understanding and agreement. Dragon Disclaimer Dragon Disclaimer This electronic medical record was generated, in whole or in part, using a voice recognition dictation system. Departure Departure Impression: Primary Impression: Hypertensive urgency Disposition: 01 HOME, SELF-CARE Condition: STABLE Referrals: YOUSIF BERMAN MD (PCP) EVERARDO FAGAN MD Patient Instructions: Hypertension, [id number] Additional Instructions: Please follow closely with your family physician for further evaluation of your blood pressure and for any further adjustments of your medications. Take previously prescribed blood pressure medications as instructed by your family physician's urgent care. RAMIN CASILLAS DO Nov 08, 2019 18:44
[2019-11-08] MEDS ORDERED: cloNIDine HCL 0.1 MG TABLET PO ONE (19:00)
[2019-11-08] MEDS ORDERED: LABETALOL 20 MG/4 ML DISP.SYRIN. IVP ONE (19:00)
[2019-11-08 19:18] LABS: BASO % 0 % (0-3); EOS # 0.2 x10^3/uL (0.0-0.7); EOS % 2 % (0-3); HEMATOCRIT 40.2 % (36.0-47.0); HEMOGLOBIN 13.1 g/dL (12.0-15.5); LYMPH # 1.9 x10^3/uL (1.0-4.8); LYMPH % 21 % (24-48); MEAN CORPUSCULAR HEMOGLOBIN 28 pg (25-35); MEAN CORPUSCULAR HGB CONC 33 g/dL (31-37); MEAN CORPUSCULAR VOLUME 87 fL (79-100); MONO # 0.7 x10^3/uL (0.0-1.1); MONO % 8 % (0-9); NEUT # 5.9 x10^3/uL (1.8-7.7); NEUT % 69 % (31-73); PLATELET COUNT 296 x10^3/uL (140-400); RED BLOOD COUNT 4.61 x10^6/uL (3.50-5.40); RED CELL DISTRIBUTION WIDTH 14.7 % (11.5-14.5); WHITE BLOOD COUNT 8.6 x10^3/uL (4.0-11.0)
[2019-11-08 19:27] LABS: CALCIUM 9.5 mg/dL (8.5-10.1); GFR 52.7; POTASSIUM 3.5 mmol/L (3.5-5.1)
[2019-11-08 19:28] LABS: PROTHROMBIN TIME PATIENT 13.4 SEC (11.7-14.0)
[2019-11-08 19:34] LABS: ALBUMIN 4.1 g/dL (3.4-5.0); MAGNESIUM 2.3 mg/dL (1.8-2.4); TOTAL BILIRUBIN 0.4 mg/dL (0.2-1.0); TOTAL PROTEIN 8.1 g/dL (6.4-8.2)
[2019-11-08 19:42] LABS: CREATINE KINASE 45 U/L (26-192)
[2019-11-08 21:06] VITALS: BP 185/86
--- NOTE | 2019-11-09 13:36 | EKG ---
[facility] [address] [place] [address] Test Date: 2019-11-08 Test Time: 18:55:46 Pat Name: JORGE CHAVIRA Department: Room: Gender: F [employer]ht[employer] Operator: : 1935 Requested By: RAMIN CASILLAS Order Number: [id number] Reading MD: Measurements Intervals [place] Rate: 88 P: 90 LA: 180 QRS: -31 QRSD: 94 T: 42 QT: 344 QTc: 420 Interpretive Statements SINUS RHYTHM VENTRICULAR PREMATURE COMPLEX(ES) ABNORMAL LEFT AXIS DEVIATION LEFT ANTERIOR FASCICULAR BLOCK QRS(T) CONTOUR ABNORMALITY CONSISTENT WITH ANTEROSEPTAL INFARCT PROBABLY OLD ABNORMAL ECG RI6.01 No previous ECG available for comparison
== END 2019-11-08 21:34 | disposition home or self-care (01) ==
LOC: ER 18:37
DX: I16.0 Hypertensive urgency (principal); I10 Essential (primary) hypertension; Z90.710 Acquired absence of both cervix and uterus
CPT/HCPCS: 36415; 80053; 82553; 83690; 83735; 84484; 85025; 85610; 85730; 93005; 96374; 99285; J3490

== ENCOUNTER → 2019-12-04 | Outpatient (CLI) | payer MEDICARE ==
[2019-11-08 21:06] VITALS: BP 185/86
--- NOTE | 2019-12-04 11:56 | RAD ---
MR#: [id number] Date of Study: 12/04/2019 Ordering Physician: CARMELA VIEIRA, Referring Physician: CARMELA VIEIRA, Tech: Mariluz Lancaster RDMS, RVT APPROVED REPORT Patient Location: OUT-PATIENT Indications Uncontrolled HTN Risk Factors Hypertension Renal Artery Doppler Right Renal Artery Left Renal Arter y Proximal 86.0/21.0 cm/secProximal 64.0/14.0 cm/sec Mid 79.0/12.0 cm/secMid 79.0/23.0 cm/sec Distal 92.0/21.0 cm/secDistal 68.0/22.0 cm/sec Renal/Aorta Ratio 1.10Renal/Aorta Ratio 0.90 Prox. Resistive Index 0.75Prox. Resistive Index 0.77 Mid Resistive Index 0.85Mid Resistive Index 0.71 Distal Resistive Index 0.77Distal Resistive Index 0.68 Renal Measurements RightLeft Kidney Rameji00.2 cm cmKidney Hhcwbs95.9 cm cm Arcurate Xgyecv90.0/9.0 cm/sArcurate Ocvvzg35/10 cm/s Right Additional FindingsLeft Additional Findings Aortic Doppler VelocityWaveform Mid. Aorta 85.0 cm/sec Findings Limited grayscale images of the bilateral kidneys are unremarkable The proximal, mid and distal right and left renal artery velocities and resistive indices are within normal limits. Renal to aortic ratios are within normal limits. Aortic velocities otherwise grossly w ithin normal limits. Overall no clear evidence of renal artery stenosis bilaterally. Critical Notification Critical Value: No <Conclusion> Negative for renal artery stenosis. Signed by : Quinn Ballard, Electronically Approved : 12/04/2019 11:56:01
== END | disposition home or self-care (01) ==
LOC: US 08:29
PROVIDERS: ATTEND Internal Medicine Cardiovascular Disease
DX: I10 Essential (primary) hypertension (principal); I77.1 Stricture of artery
CPT/HCPCS: 76770

== ENCOUNTER → 2020-03-23 | Outpatient (CLI) | payer MEDICARE ==
--- NOTE | 2020-03-24 10:05 | RAD ---
MR#: [id number] Date of Study: 03/23/2020 Ordering Physician: CARMELA VIEIRA, Referring Physician: CARMELA VIEIRA, Tech: Kumar Sylvester MBA, RDMS, RVT, RDCS, RTR APPROVED REPORT Bilateral Lower Extremity Venous Study for DVT Patient Location: OUT-PATIENT Indications Lower Extremity Edema: Bilateral Vein Imaging (Right) CFV (R): Compressible SFJ (R): Compressible FEM (R): Compressible POP (R): Compressible DFV (R): Compressible PTV (R): Spontaneous GSV (R): Spontaneous Peroneals (R): Spontaneous Vein Imaging (Left) CFV (L): Compressible SFJ (L): Compressible FEM (L): Compressible POP (L): Compressible DFV (L): Compressible PTV (L): Spontaneous GSV (L): Spontaneous Peroneals (L): Spontaneous Doppler Evaluation (Right) CFV (R): Spontaneous POP (R):Spontaneous Doppler Evaluation (Left) CFV (L):Spontaneous POP (L):Spontaneous Findings Grayscale images of the bilateral common femoral, superficial femoral, popliteal veins did not reveal any obvious evidence of thrombus. The mid to distal superficial femoral vein is not well visualized on grayscale images but grossly appears to be compressible. There is spontaneous flow noted in the below-knee veins. Spectral waveforms and color Doppler of the above-knee veins are grossly unremarka ble. No obvious evidence of DVT. Critical Notification Critical Value: Yes <Conclusion> 1. Negative for DVT. Signed by : Quinn Ballard, Electronically Approved : 03/24/2020 10:05:18
--- NOTE | 2020-03-24 10:07 | RAD ---
MR#: [id number] Date of Study: 03/23/2020 Ordering Physician: CARMELA VIEIRA, Referring Physician: CARMELA VIEIRA, Tech: Kumar Sylvester MBA, RDMS, RVT, RDCS, RTR APPROVED REPORT Patient Location: OUT-PATIENT Indications Edema VELOCITY AND DOPPLER WAVEFORM ANALYSIS RIGHT cm/secWaveformSeverity LEFT cm/secWaveform Severity dCFA 71.0TriphasicdCFA 53.0Biphasic Prof Fem Art. 76.0BiphasicProf Fem Art. 51.0Biphasic Fem Art Prox. 108.0TriphasicFem Art Prox. 97.0Triphasic Fem Art Mid. 94.0TriphasicFem Art Mid. 80.0Triphasic Fem Art Dist. 74.0TriphasicFem Art Dist. 94.0Triphasic Pop Art(Fossa) 65.0TriphasicPop Art(AK) 62.0Triphasic SHOWER MAID Prox. 89.0TriphasicPTA Prox. 80.0Triphasic SHOWER MAID Dist. 93.0TriphasicPTA Dist. 90.0Triphasic Per Art Mid. 61.0TriphasicPer Art Mid. 90.0Triphasic BRUCE Prox. 64.0BiphasicATA Prox. 90.0Triphasic DPA 95BiphasicDPA 168Biphasic Findings Grayscale images of the bilateral lower extremity arterial vessels demonstrate mild diffuse intimal h yperplasia and calcification. Spectral waveforms are mostly triphasic and biphasic with normal velocities. No evidence of signific ant stenosis identified. Critical Notification Critical Value: No <Conclusion> 1. No significant lower extremity arterial disease bilaterally with three-vessel runoff below the kn ees. Signed by : Quinn Ballard, Electronically Approved : 03/24/2020 10:06:43
== END | disposition home or self-care (01) ==
LOC: US 14:03
PROVIDERS: ATTEND Internal Medicine Cardiovascular Disease
DX: I70.0 Atherosclerosis of aorta (principal); M79.89 Other specified soft tissue disorders
CPT/HCPCS: 93925; 93970

== ENCOUNTER 2022-04-11 13:26 | Emergency (ER) | payer MEDICARE ==
[~2022-04-11] VITALS: Ht 154.9 cm; Wt 76.8 kg
[~2022-04-11 13:26] MED LIST changes: -CALC600T4 PO; +CALC600T60 PO; +GABA-585 PO; +METO-239 PO; +MULT-445 PO; -MULT1TAB52 PO; +TIZA-75 PO; -TIZA4TAB2 PO
[2022-04-11 14:29] LABS: BACTERIA,URINE MANY /HPF (0-FEW); WBC,URINE TNTC /HPF (0-4)
[2022-04-11] MEDS ORDERED: IOHEXOL 300 MG/ML 100ML VIAL. IV ONE (15:00)
[2022-04-11] MEDS ORDERED: CONTRAST GIVEN. MC PRN (15:00)
[2022-04-11 15:18] LABS: BASO % 0 % (0-3); EOS # 0.3 x10^3/uL (0.0-0.7); EOS % 2 % (0-3); HEMATOCRIT 35.3 % (36.0-47.0); HEMOGLOBIN 11.9 g/dL (12.0-15.5); LYMPH # 1.7 x10^3/uL (1.0-4.8); LYMPH % 16 % (24-48); MEAN CORPUSCULAR HEMOGLOBIN 30 pg (25-35); MEAN CORPUSCULAR HGB CONC 34 g/dL (31-37); MEAN CORPUSCULAR VOLUME 89 fL (79-100); MONO # 0.9 x10^3/uL (0.0-1.1); MONO % 8 % (0-9); NEUT # 8.1 x10^3/uL (1.8-7.7); NEUT % 73 % (31-73); PLATELET COUNT 532 x10^3/uL (140-400); RED BLOOD COUNT 3.97 x10^6/uL (3.50-5.40); RED CELL DISTRIBUTION WIDTH 13.4 % (11.5-14.5); WHITE BLOOD COUNT 11.1 x10^3/uL (4.0-11.0)
[2022-04-11 15:40] LABS: ALBUMIN/GLOBULIN RATIO 0.6 (1.0-1.7); CALCIUM 9.8 mg/dL (8.5-10.1); CREATININE 0.8 mg/dL (0.6-1.0); GFR 67.7; TOTAL BILIRUBIN 0.6 mg/dL (0.2-1.0)
[2022-04-11 15:43] LABS: POTASSIUM 2.9 mmol/L (3.5-5.1)
--- NOTE | 2022-04-11 16:35 | RAD ---
Exam: CT of abdomen and pelvis with contrast INDICATION: Suspected rectovaginal fistula, Back pain TECHNIQUE: Sequential axial images through the abdomen and pelvis obtained following the administrati on of 75 mL of Isovue-370 IV contrast. Sagittal and coronal reformatted images were reconstructed fro m the axial data and reviewed. Exposure: One or more of the following in the visualized dose reduction techniques were utilized for this examination: 1. Automated exposure control 2. Adjustment of the MA and/or KV according to patient size 3. Use of iterative of reconstructive technique Comparisons: 06/14/2021 FINDINGS: Heart is mildly enlarged. No pericardial effusion. Visualized lung bases are clear. No pleural effusi on. Numerous simple cyst noted within the liver. Liver demonstrates heterogenous enhancement. Gallbladder is absent. Mild common bile duct dilatation down to level the ampulla without obstructing stone or l esion identified. Spleen, pancreas and adrenals are unremarkable. No perinephric inflammation or hydronephrosis. No renal or ureteral calculi are identified. Bladder is partially distended with small amount of air noted in the bladder. Uterus is absent. There is air noted within the vagina. Soft tissue bridging the sigmoid colon and vaginal cuff. Diverticulosis of the sigmoid colon with bandlike areas extending from the sigmoid colon. Remainder l arge and small bowel are unremarkable. Appendix is absent. No free intra-abdominal air or fluid. No o bstruction. Abdominal aorta has normal course and caliber. Abdominal vasculature is patent. No enlarged intra-abdominal lymph nodes are identified. No suspicious osseous lesions or acute fractures. IMPRESSION: 1. 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 There is stranding extending from the s igmoid colon to the vaginal cuff with air noted in the vagina. 2. Additionally there is a small amount of air noted within the bladder. Correlate for recent instru mentation. 3. Extensive diverticulosis without evidence of acute diverticulitis Electronically signed by: Anastacio Nation MD (04/11/2022 4:33 PM) [facility]
--- NOTE | 2022-04-11 16:54 | PHYS DOC ---
Past Medical History Past Medical History: A-Fib, Arthritis, Hypertension Additional Past Medical Histor: RECTAL BLEED, FALLS, neuropathy Past Surgical History: Cholecystectomy, Hysterectomy Additional Past Surgical Histo: PROLAPSED BOWEL Smoking Status: Never Smoker Alcohol Use: None Drug Use: None General Adult EDM: Chief Complaint: ABDOMINAL PAIN HPI: HPI: Patient is a 87 year old female who presents from primary care doctor with intermittent lower abdominal pain and intermittent copious green/yellow vaginal discharge. Patient describes her lower abdominal pain as "sore" or "cramping." She is not currently in any pain. Patient's main concern on presentation to her primary care doctor was the vaginal discharge that she was experiencing. P atient denies any sexual activity. She does have history of colon prolapse status post hysterectomy, which required surgical intervention. Patient denies fever, chills, generalized weakness, N/V/D, dysuria, hematuria. Review of Systems: Review of Systems: Constitutional: See HPI Eyes: Denies change in visual acuity, visual field deficits or discharge HENT: Denies ear pain, nasal congestion or sore throat Respiratory: Denies cough or shortness of breath Cardiovascular: Denies chest pain, palpitations or edema GI: See HPI : See HPI Musculoskeletal: Denies back pain or joint pain Integument: Denies rash or other skin lesion Neurologic: Denies headache, focal weakness or sensory changes Heart Score: C/O Chest Pain: No Current Medications: Current Medications Medications (Trade) Dose Ordered Sig/Bertha Route PRN Reason Start Time Stop Time Status Last Admin Dose Admin Iohexol (Omnipaque 300 Mg/ml) 75 ml 1X ONCE IV 04/11/22 15:00 04/11/22 15:01 DC 04/11/22 15:00 Potassium Chloride/Sodium Chloride 1,000 ml @ 1,000 mls/hr Q1H ONCE IV 04/11/22 18:15 04/11/22 19:14 DC 04/11/22 19:58 Hydralazine HCl (Apresoline Inj) 10 mg 1X ONCE IVP 04/11/22 19:15 04/11/22 19:16 DC 04/11/22 18:50 Allergies: Allergies: Allergies Coded Allergies Type Severity Reaction Last Updated Verified No Known Drug Allergies 08/21/19 No Physical Exam: PE: Constitutional: Well developed, well nourished, no acute distress, non-toxic appearance. HENT: Normocephalic, atraumatic, bilateral external ears normal, oropharynx m oist, no oral exudates, nose normal. Eyes: EOMI, conjunctiva normal, no discharge. Neck: Normal range of motion, no stridor. Abdomen: Bowel sounds normal, soft, LLQ tenderness without rebound or guarding, no masses, no pulsatile masses. Skin: Warm, dry, no erythema, no rash. Extremities: No cyanosis, no clubbing, ROM intact, no edema. Neurologic: Alert and oriented X 3, normal motor function, normal sensory function, no focal deficits noted. Current Patient Data: Labs: Laboratory Tests Test 04/11/22 14:00 White Blood Count 11.1 x10^3/uL (4.0-11.0) H Red Blood Count 3.97 x10^6/uL (3.50-5.40) Hemoglobin 11.9 g/dL (12.0-15.5) L Hematocrit 35.3 % (36.0-47.0) L Mean Corpuscular Volume 89 fL (79-100) Mean Corpuscular Hemoglobin 30 pg (25-35) Mean Corpuscular Hemoglobin Concent 34 g/dL (31-37) Red Cell Distribution Width 13.4 % (11.5-14.5) Platelet Count 532 x10^3/uL (140-400) H Neutrophils (%) (Auto) 73 % (31-73) Lymphocytes (%) (Auto) 16 % (24-48) L Monocytes (%) (Auto) 8 % (0-9) Eosinophils (%) (Auto) 2 % (0-3) Basophils (%) (Auto) 0 % (0-3) Neutrophils # (Auto) 8.1 x10^3/uL (1.8-7.7) H Lymphocytes # (Auto) 1.7 x10^3/uL (1.0-4.8) Monocytes # (Auto) 0.9 x10^3/uL (0.0-1.1) Eosinophils # (Auto) 0.3 x10^3/uL (0.0-0.7) Basophils # (Auto) 0.0 x10^3/uL (0.0-0.2) Urine Collection Type Unknown Urine Color (Auto) Light yellow Urine Turbidity Hazy Urine pH (Auto) 6.0 (<5.0-8.0) Urine Specific [place] 1.010 (1.000-1.030) Urine Protein (Auto) Negative mg/dL (Negative) Urine Glucose (Auto)(UA) Negative mg/dL (Negative) Urine Ketones (Auto) Negative mg/dL (Negative) Urine Blood (Auto) Small (Negative) Urine Nitrite Negative (Negative) Urine Bilirubin (Auto) Negative (Negative) Urine Urobilinogen (Auto) Normal mg/dL (Normal) Urine Leukocyte Esterase (Auto) Large (Negative) Urine RBC 6-10 /HPF (0-2) Urine WBC Tntc /HPF (0-4) Urine Bacteria Many /HPF (0-FEW) Sodium Level 142 mmol/L (136-145) Potassium Level 2.9 mmol/L (3.5-5.1) *L Chloride Level 102 mmol/L (98-107) Carbon Dioxide Level 27 mmol/L (21-32) Anion Gap 13 (6-14) Blood Urea Nitrogen 12 mg/dL (7-20) Creatinine 0.8 mg/dL (0.6-1.0) Estimated GFR (Cockcroft-Gault) 67.7 BUN/Creatinine Ratio 15 (6-20) Glucose Level 94 mg/dL (70-99) Calcium Level 9.8 mg/dL (8.5-10.1) Total Bilirubin 0.6 mg/dL (0.2-1.0) Aspartate Amino Transferase (AST) 16 U/L (15-37) Alanine Aminotransferase (ALT) 18 U/L (14-59) Alkaline Phosphatase 144 U/L (46-116) H Total Protein 8.0 g/dL (6.4-8.2) Albumin 3.0 g/dL (3.4-5.0) L Albumin/Globulin Ratio 0.6 (1.0-1.7) L Laboratory Tests 04/11/22 14:00 Laboratory Tests 04/11/22 14:00 Vital Signs: Vital Signs Date Time Temp Pulse Resp B/P (MAP) Pulse Ox O2 Delivery O2 Flow Rate FiO2 04/11/22 20:17 96 20 158/79 (105) 96 Room Air 04/11/22 19:50 89 20 169/77 (107) 97 Room Air 04/11/22 19:29 102 20 185/82 (116) 97 04/11/22 19:02 90 20 182/90 (120) 96 Room Air 04/11/22 18:50 93 207/90 04/11/22 18:47 90 20 200/89 (126) 94 Room Air 04/11/22 18:37 90 20 207/90 (129) 94 04/11/22 18:27 86 20 191/105 (133) 94 04/11/22 18:05 98.4 98 20 170/117 (134) 96 98.4 04/11/22 13:39 98.2 80 18 170/129 (143) 96 98.2 EKG: EKG: EKG Interpreted by Dr. Del Toro at 1854: Irregularly irregular rhythm at 91 bpm with no ectopic beats. QT 374 ms/QTc 468 ms. No STEMI. Radiology/Procedures: Radiology/Procedures: PROCEDURE: CT ABD PELV W/ IV CONTRST ONLY Exam: CT of abdomen and pelvis with contrast INDICATION: Suspected rectovaginal fistula, Back pain TECHNIQUE: Sequential axial images through the abdomen and pelvis obtained following the administration of 75 mL of Isovue-370 IV contrast. Sagittal and coronal reformatted images were reconstructed from the axial data and reviewed. Exposure: One or more of the following in the visualized dose reduction techniques were utilized for this examination: 1. Automated exposure control 2. Adjustment of the MA and/or KV according to patient size 3. Use of iterative of reconstructive technique Comparisons: 06/14/2021 FINDINGS: Heart is mildly enlarged. No pericardial effusion. Visualized lung bases are clear. No pleural effusion. Numerous simple cyst noted within the liver. Liver demonstrates heterogenous enhancement. Gallbladder is absent. Mild common bile duct dilatation down to level the ampulla without obstructing stone or lesion identified. Spleen, pancreas and adrenals are unremarkable. No perinephric inflammation or hydronephrosis. No renal or ureteral calculi are identified. Bladder is partially distended with small amount of air noted in the bladder. Uterus is absent. There is air noted within the vagina. Soft tissue bridging the sigmoid colon and vaginal cuff. Diverticulosis of the sigmoid colon with bandlike areas extending from the sigmoid colon. Remainder large and small bowel are unremarkable. Appendix is absent. No free intra-abdominal air or fluid. No obstruction. Abdominal aorta has normal course and caliber. Abdominal vasculature is patent. No enlarged intra-abdominal lymph nodes are identified. No suspicious osseous lesions or acute fractures. IMPRESSION: 1. 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 There is stranding extending from the sigmoid colon to the vaginal cuff with air noted in the vagina. 2. Additionally there is a small amount of air noted within the bladder. Correlate for recent instrumentation. 3. Extensive diverticulosis without evidence of acute diverticulitis Electronically signed by: Anastacio Nation MD (04/11/2022 4:33 PM) [facility] Course & Med Decision Making: Course & Med Decision Making Pertinent Labs and Imaging studies reviewed. (See chart for details) Is an 87-year-old female who is not sexually active and presents with vaginal discharge and low abdomen pain. CT reveals a fistula between the sigmoid colon and the vaginal canal. I spoke with general surgery, who does not perform this corrective surgery, and recommends that the patient be transferred to a facility who has colorectal surgery available. Patient and her family member were made aware of findings and plan to transfer. They verbalized understanding and agreement. Upon discussion with the patient and her family member at bedside, it has been decided that we will transfer her to [facility] facility, who has colorect al surgery. Dr. Frederick at [facility] gladly accepts patient for admission, further evaluation and treatment. Patient was given IV hydralazine and potassium prior to transfer for blood pressure and hypokalemia. Patient was kept n.p.o., anticipating surgical intervention. Patient was hemodynamically stable at time of transfer. Dragon Disclaimer: Dragon Disclaimer: This electronic medical record was generated, in whole or in part, using a voice recognition dictation system. Departure Departure Impression: Primary Impression: Colovaginal fistula Additional Impression: Hypokalemia Disposition: 02 SHORT TERM HOSPITAL Condition: GUARDED Referrals: YOUSIF BERMAN MD (PCP) JIMMIE SCHMIDT April 11, 2022 16:54
[2022-04-11] MEDS ORDERED: hydrALAZINE 20 MG/ML VIAL. IVP ONE (19:15)
[2022-04-11 20:17] VITALS: BP 158/79
--- NOTE | 2022-04-12 03:52 | EKG ---
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
== END 2022-04-11 20:35 | disposition short-term general hospital (02) ==
LOC: ER 13:26
DX: N82.3 Fistula of vagina to large intestine (principal); E87.6 Hypokalemia; I48.91 Unspecified atrial fibrillation; I10 Essential (primary) hypertension; Z90.49 Acquired absence of other specified parts of digestive tract; Z90.710 Acquired absence of both cervix and uterus
CPT/HCPCS: 36415; 74177; 80053; 81001; 85025; 87077; 87086; 87186; 87426; 87491; 87591; 93005; 96365; 96375; 99285; J0360; J3480; Q9967